=== PATIENT | female | born 1935 | race Caucasian/White ===

== ENCOUNTER 2019-09-22 10:53 | Inpatient (IN) ==
[2019-09-22] MEDS ORDERED: 0.9 % SODIUM CHLORIDE 500 ML IV ONE ×2 (11:36→13:29)
--- NOTE | 2019-09-22 11:40 | Emergency Department Note ---
General Adult HPI - General Chief complaint: Recheck/Abnormal Lab/Rx Stated complaint: here for chest x-ray Time Seen by Provider: 09/22/19 10:59 Source: patient Mode of arrival: wheelchair Limitations: no limitations - History of Present Illness HPI Narrative: 84-year-old female patient referred back to the emergency department by her primary care provider requesting additional work-up. Patient was recently seen in our emergency department on 09/19 by a colleague. During that time she was being worked up for some form of fever of unknown origin. A review that note indicates that the patient had a fever and URI symptoms for the preceding 4 days. Her temperature was getting as high as 101. Her work-up showed a normal CBC and rather unremarkable CMP. Her lactic acid was 2.3. Her inflammatory markers were elevated, ESR 68 and CRP 10.5. Nasal swab for influenza was negative. Procalcitonin was 0.11. She had no considerable evidence of infe ction in her urine. She underwent a CT scan of her sinuses that did not show any considerable sinusitis. Today, patient returns accompanied by her and daughter with a chief complaint of ongoing fevers. Patient's says that the fever was high as 102 earlier this morning. He gave her several doses of acetaminophen and this is calm down. Patient relays a history of being seen up in [facility] 1 week ago. She is being evaluated and worked up for atrial fibrillation. During that time she had a transesophageal echocardiogram. Soon afterward, she developed a cough. She and her both continue to relay history of fever, sweats, chills. She denies runny nose digestion. She denies sputum production. She denies being short of breath. However, her relays some mild dyspnea over the last 2 days. She denies any retrosternal chest pain or palpitations. She admits to abdominal discomfort. Her relays she had several Lovenox injections in order to get her INR therapeutic prior to undergoing atrial fibrillation cardioversion. She is currently anticoagulated on Coumadin 2.5 mg daily. Her most recent INR was 4.6 on Tuesday (09/18). She denies nausea, vomiting, diarrhea, or constipation. She denies having a recent bowel movement. However her mentions she had a normal bowel 2 days ago. A review of her active problem list does show a history of mitral valve replacement, palpitations, atrial fibrillation, and fever. - Related Data Allergies Allergy/AdvReac Type Severity Reaction Status Date / Time Sulfa (Sulfonamide Allergy Mild Hives Verified 09/20/19 12:19 Antibiotics) Review of Systems All systems ED: reviewed and negative except as stated. Past Medical History - Past Medical History Medical history: Reports: atrial fibrillation Surgical history ED: Reports: non-contributory - Social History smoking status: Never smoker Alcohol use: Reports: None Drug use: Reports: none Physical Exam Limitations: no limitations General appearance: alert, in no apparent distress, sleepy, other (Well- developed, frail-appearing, 84-year-old female patient laying semi-recumbent on the emergency room gurney in no acute respiratory distress.) Head: atraumatic, normocephalic Eye: Present: normal appearance, PERRL, EOMI. Absent: scleral icterus, conjunctival injection ENT: Present: normal oropharynx, mucous membranes moist, TM's normal bilaterally. Absent: nasal congestion Neck: Present: full ROM, trachea midline. Absent: tenderness, lymphadenopathy Chest: Present: normal inspection, symmetric chest wall rise Respiratory: Present: rales/crackles (Very faint crackles heard to the bases bilateral.), decreased breath sounds (Decreased breath sounds to the bases.). Absent: respiratory distress, wheezes, stridor, accessory muscle use, prolonged expiratory phase Cardiovascular: Present: regular rate, normal rhythm. Absent: systolic murmur, diastolic murmur Abdominal: Present: soft, tenderness (Mild tenderness palpation to the right lower quadrant adjacent to a small hematoma that developed after the Lovenox injections. No considerable tenderness to deep palpitation throughout the abdomen.), normal bowel sounds. Absent: distention, guarding, rebound, rigidity, organomegaly, mass Extremities: Present: normal inspection, full ROM, normal capillary refill Back: Present: normal inspection, full ROM. Absent: CVA tenderness (R), CVA tenderness (L) Neurological: Present: alert, oriented X3. Absent: motor sensory deficit Psychiatric: Present: normal affect, normal mood Skin: Present: warm, dry, pallor Course Course Narrative: Patient was brought into the emergency department and a history of physical exam was performed. At this time she continues to have a fever of unknown origin so we are going to reconfirm her work-up but with saline lock placement and repeat laboratory studies. Repeat nasal swab for influenza a/B was ordered and reviewed A portable chest x-ray was ordered and reviewed. Although the patient is complaining of some mild abdominal pain this seems to be localized around the hematoma secondary to Lovenox injections. However, if additional work-up is unremarkable we may elect to do an abdominal CT scan looking for a cause of her fever in the future. Patient was given normal saline 500 mL bolus. Upon reevaluation patient is resting in emergency room [facility]. Influenza swab came back positive for both influenza a/B. A review of her laboratory studies show the following: CBC WBC 14.7, RBC 4.16, hemoglobin 12.5, crit 38.0, platelets 340. CMP glucose 184, AST 45, globulin 3.8, all others normal limits. Lactic acid 2.9. Lipase 14. Procalcitonin 0.73. ESR 60. CRP 20.8. PT 35.2. INR 3.4. Portable chest x-ray showed moderately severe alveolar infiltrates th roughout both lungs. Radiologist mentioned this could be pneumonia, fluid overload, or noninfectious inflammatory process. After reviewing all the data I discussed these findings with the patient and her family members. At this time she is suffering from influenza A and B and that is likely the cause of her symptoms today. She has an blood cell count and inflammatory markers. Chest x-ray showing developing pneumonia. With all this in mind, it is my recommendation the patient be admitted to the hospital for further evaluation and management. Patient was given dose of Tamiflu 75 mg while in the emergency department. I reached out to our hospitalist (Dr. Jimenez) about the patient and her condition. At this time the hospitalist has concurred about the patient's need for admission. Dr. Jimenez is going to admit her to our facility. All further treatment decisions, modalities, and ultimate patient disposition be carried out by Dr. Jimenez. Vital Signs Temperature 97.7 F 09/22/19 10:54 Pulse Rate 85 09/22/19 10:54 Respiratory Rate 20 09/22/19 10:54 Blood Pressure 145/72 09/22/19 10:54 Pulse Oximetry (%) 97 09/22/19 10:54 Temperature 101.6 F H 09/22/19 13:40 Pulse Rate 81 09/22/19 12:39 Respiratory Rate 20 09/22/19 10:54 Blood Pressure 135/54 09/22/19 12:31 Pulse Oximetry (%) 93 09/22/19 12:39 Medical Decision Making - Lab Data Lab results reviewed: Yes I reviewed the patient's lab results. Result diagrams: 09/22/19 11:43 09/22/19 11:43 Lab Results 09/22/19 09/22/19 09/22/19 Range/Units 11:43 11:43 11:43 WBC 14.7 H (4.50-11.00) K/mcL RBC 4.16 (3.59-5.38) M/mcL Hgb 12.5 (11.2-15.7) g/dL Hct 38.0 (34.1-44.9) % POC Hct 38.0 (36.0-48.0) % MCV 91.3 (80.0-100.0) fL MCH 30.0 (26.0-34.0) pg MCHC 32.9 (31.0-36.0) g/dL RDW 14.1 (11.5-14.5) % Plt Count 340 (140-440) K/mcL MPV 10.3 (7.4-10.4) fL Gran % 78.9 H (38.0-78.0) % Lymph % (Auto) 9.1 L (15.5-49.0) % Aiken % (Auto) 8.8 (1.0-12.0) % Eos % (Auto) 2.2 (0.0-7.0) % Baso % (Auto) 1.0 (0.0-2.0) % Gran # 11.61 H (1.80-8.00) K/mcL Lymph # (Auto) 1.34 L (1.50-4.80) K/mcL Aiken # (Auto) 1.30 H (0.10-0.90) K/mcL Eos # (Auto) 0.32 (0.00-0.70) K/mcL Baso # (Auto) 0.15 (0.00-0.30) K/mcL ESR 60 H (0-20) mm/hr PT (11.9-14.5) sec INR (0.9-1.1) VBG Lactic Acid 2.9 H (0.5-2.0) mmol/L POC Sodium 137 (133-145) mmol/L Sodium 136 (133-145) mmol/L POC Potassium 3.6 (3.3-5.1) mmol/L Potassium 3.8 (3.3-5.1) mmol/L POC Chloride 101 (96-108) mmol/L Chloride 98 (96-108) mmol/L Carbon Dioxide 25 (22-30) mmol/L POC Total CO2 27 (22-30) mmol/L Anion Gap 13.0 (8-16) POC BUN 14 (8-23) mg/dl BUN 13 (8-23) mg/dl Creatinine 1.0 (0.6-1.1) mg/dl POC Creatinine 0.9 (0.6-1.1) mg/dl GFR Calculation 51 Glucose 184 H (70-105) mg/dL POC Glucose 181 H (70-105) mg/dL Calcium 9.4 (8.6-10.4) mg/dl POC WB Ioniz Calcium 1.20 (1.16-1.32) mmol/L Total Bilirubin 0.8 (0.0-1.0) mg/dL AST 45 H (0-37) U/l ALT 28 (0-40) U/l Alkaline Phosphatase 113 (39-117) U/L C-Reactive Protein 20.8 H (0.0-0.8) mg/dl Total Protein 7.2 (5.9-8.4) gm/dL Albumin 3.4 (3.2-5.2) gm/dL Globulin 3.8 H (2.2-3.7) gm/dL Albumin/Globulin Ratio 0.9 L (1.0-2.3) Lipase 14 (7-60) U/L Procalcitonin (<0.10) ng/mL 09/22/19 09/22/19 Range/Units 11:43 11:43 WBC (4.50-11.00) K/mcL RBC (3.59-5.38) M/mcL Hgb (11.2-15.7) g/dL Hct (34.1-44.9) % POC Hct (36.0-48.0) % MCV (80.0-100.0) fL MCH (26.0-34.0) pg MCHC (31.0-36.0) g/dL RDW (11.5-14.5) % Plt Count (140-440) K/mcL MPV (7.4-10.4) fL Gran % (38.0-78.0) % Lymph % (Auto) (15.5-49.0) % Aiken % (Auto) (1.0-12.0) % Eos % (Auto) (0.0-7.0) % Baso % (Auto) (0.0-2.0) % Gran # (1.80-8.00) K/mcL Lymph # (Auto) (1.50-4.80) K/mcL Aiken # (Auto) (0.10-0.90) K/mcL Eos # (Auto) (0.00-0.70) K/mcL Baso # (Auto) (0.00-0.30) K/mcL ESR (0-20) mm/hr PT 35.2 H (11.9-14.5) sec INR 3.4 H (0.9-1.1) VBG Lactic Acid (0.5-2.0) mmol/L POC Sodium (133-145) mmol/L Sodium (133-145) mmol/L POC Potassium (3.3-5.1) mmol/L Potassium (3.3-5.1) mmol/L POC Chloride (96-108) mmol/L Chloride (96-108) mmol/L Carbon Dioxide (22-30) mmol/L POC Total CO2 (22-30) mmol/L Anion Gap (8-16) POC BUN (8-23) mg/dl BUN (8-23) mg/dl Creatinine (0.6-1.1) mg/dl POC Creatinine (0.6-1.1) mg/dl GFR Calculation Glucose (70-105) mg/dL POC Glucose (70-105) mg/dL Calcium (8.6-10.4) mg/dl POC WB Ioniz Calcium (1.16-1.32) mmol/L Total Bilirubin (0.0-1.0) mg/dL AST (0-37) U/l ALT (0-40) U/l Alkaline Phosphatase (39-117) U/L C-Reactive Protein (0.0-0.8) mg/dl Total Protein (5.9-8.4) gm/dL Albumin (3.2-5.2) gm/dL Globulin (2.2-3.7) gm/dL Albumin/Globulin Ratio (1.0-2.3) Lipase (7-60) U/L Procalcitonin 0.73 (<0.10) ng/mL - Radiology Data Radiology results reviewed: Yes I reviewed the patient's radiology results. Ordering Physician: Rashard Alford PA-C Date of Service: 09/22/19 Procedure(s): XR chest 1V portable Accession Number(s): [id number] HISTORY: Cough, fever of unknown origin FINDINGS: There are moderately severe diffuse alveolar opacities throughout both lungs. Lung volumes are normal and there is no lobar consolidation or pleural effusion. The heart size is upper limits of normal. Pulmonary vessels cannot be evaluated. Comparison with the prior exam from 09/14/19 shows dramatic worsening of the infiltrates in both lungs and no change in the heart size. IMPRESSION: Moderately severe alveolar infiltrates throughout both lungs. This could be due to pneumonia, fluid overload or noninfectious inflammatory process. Interpreted and Authenticated by: Jordi Ortiz 09/22/19 - EKG Data EKG #1 EKG attestation: Yes I reviewed and interpreted this EKG., Yes There are no EKG findings of acute coronary syndrome Disposition Pt seen by TAILOR [employer]MENT [facility]TER/PA only: Yes Clinical Impression: Influenza Pneumonia Qualifiers: Pneumonia type: due to unspecified organism Laterality: bilateral Lung location: unspecified part of lung Qualified Code(s): J18.9 - Pneumonia, unspecified organism Disposition: Xfer As Inpt ([facility]) Condition: Fair Additional Instructions: Patient is being admitted to the facility under the care of the hospitalist (Dr. Jimenez). All further treatment decisions, modalities, and ultimate patient disposition be carried out by the hospitalist. Referrals: Rashard Abdi MD [Primary Care Provider] -
[2019-09-22 12:04] LABS: POC Blood Urea Nitrogen 14 mg/dl (8-23); POC CO2 27 mmol/L (22-30); POC Chloride 101 mmol/L (96-108); POC Creatinine 0.9 mg/dl (0.6-1.1); POC Glucose, Random 181 mg/dL (70-105); POC Potassium 3.6 mmol/L (3.3-5.1); POC Sodium 137 mmol/L (133-145)
[2019-09-22 12:58] LABS: ALT/SGPT 28 U/l (0-40); AST/SGOT 45 U/l (0-37); Albumin 3.4 gm/dL (3.2-5.2); Albumin/Globulin Ratio 0.9 (1.0-2.3); Alkaline Phosphatase 113 U/L (39-117); Basophils # (Auto) 0.15 K/mcL (0.00-0.30); Bilirubin,Total 0.8 mg/dL (0.0-1.0); Blood Urea Nitrogen 13 mg/dl (8-23); C-Reactive Protein 20.8 mg/dl (0.0-0.8); Calcium 9.4 mg/dl (8.6-10.4); Carbon Dioxide 25 mmol/L (22-30); Chloride 98 mmol/L (96-108); Eosinophils # (Auto) 0.32 K/mcL (0.00-0.70); Eosinophils % (Auto) 2.2 % (0.0-7.0); Globulin 3.8 gm/dL (2.2-3.7); Glomerular Filtration Rate 51; Glucose 184 mg/dL (70-105); Granulocytes % (Auto) 78.9 % (38.0-78.0); Hemoglobin 12.5 g/dL (11.2-15.7); INR 3.4 (0.9-1.1); Lymphocytes # (Auto) 1.34 K/mcL (1.50-4.80); Lymphocytes % (Auto) 9.1 % (15.5-49.0); Mean Cell Volume 91.3 fL (80.0-100.0); Mean Corpuscular HGB Conc 32.9 g/dL (31.0-36.0); Mean Platelet Volume 10.3 fL (7.4-10.4); Monocytes % (Auto) 8.8 % (1.0-12.0); Platelet Count 340 K/mcL (140-440); Prothrombin Time 35.2 sec (11.9-14.5); RBC 4.16 M/mcL (3.59-5.38); Red Cell Distribution Width 14.1 % (11.5-14.5); WBC 14.7 K/mcL (4.50-11.00)
[2019-09-22] MEDS ORDERED: ACETAMINOPHEN 325 MG TABLET PO ONE (13:28)
[2019-09-22] MEDS ORDERED: OSELTAMIVIR PHOSPHATE 75 MG CAPSULE PO ONE (13:28)
[2019-09-22 13:32] LABS: Erythrocyte Sedimentation Rate 60 mm/hr (0-20)
--- NOTE | 2019-09-22 14:18 | XRay Report ---
HISTORY: Cough, fever of unknown origin FINDINGS: There are moderately severe diffuse alveolar opacities throughout both lungs. Lung volumes are normal and there is no lobar consolidation or pleural effusion. The heart size is upper limits of normal. Pulmonary vessels cannot be evaluated. Comparison with the prior exam from 09/14/19 shows dramatic worsening of the infiltrates in both lungs and no change in the heart size. IMPRESSION: Moderately severe alveolar infiltrates throughout both lungs. This could be due to pneumonia, fluid overload or noninfectious inflammatory process. Interpreted and Authenticated by: Jordi Ortiz 09/22/19
[2019-09-22] MEDS ORDERED: ONDANSETRON 4 MG/2 ML VIAL IV PRN ×2 (15:00→17:14)
[2019-09-22] MEDS ORDERED: 0.9 % SODIUM CHLORIDE 1,000 ML IV SCH (15:00)
[2019-09-22] MEDS ORDERED: IPRATROPIUM/ALBUTEROL 3 ML AMPUL.NEB NEB SCH (15:00)
[2019-09-22] MEDS ORDERED: ACETAMINOPHEN 325 MG TABLET PO PRN (15:00)
--- NOTE | 2019-09-22 15:25 | Internal Med History&Physical ---
Medical - H&P: HPI Patient information: Note initiated : 09/22/19 at 3:20 pm Service Date, if different from initiated Date: [] Patient: Ameena Ignacio 84 y/o F admitted on for here for chest x-ray. Chief Complaint: [Do not feel well for 2 days] History of present illness: Ms. Ignacio is a 84 year old F with a history of atrial fibrillation who presented to the ER because she has been having mild fever for days do not feel well for 2 days. As per patient, she has been having fever for days for which she went to the ER from medical staff assistant. She was discharged home with medications. She came back again because she does not feel well for 2 days. In the ER, she was found to have will mild fever and a positive positive influenza a and B. When I saw this patient in the ER, other than symptoms mentioned above, she also complains of malaise, fever and chills. Denied headache, dizziness, chest pain, shortness of breath, abdominal pain, nausea, vomiting, or diarrhea. No recent travel or sick contact. - Constitutional Constitutional: Present: as per HPI, chills, fatigue, fever(s), malaise - EENT Eyes: Present: as per HPI Ears: Present: as per HPI Nose, mouth and throat: Present: as per HPI - Cardiovascular Cardiovascular: Present: as per HPI. Absent: chest pain - Respiratory Respiratory: Absent: wheezing - Gastrointestinal Gastrointestinal: Absent: diarrhea, nausea, vomiting - Musculoskeletal Musculoskeletal: Present: as per HPI - Integumentary Integumentary: Present: as per HPI - Neurological Neurological: Present: as per HPI - Psychiatric Psychiatric: Present: as per HPI - Endocrine Endocrine: Present: as per HPI - Hematologic/Lymphatic Hematologic/Lymphatic: Present: as per HPI - Allergic/Immunologic Allergic/Immunologic: Present: as per HPI Medical - H&P: PMH Problems Reviewed: Yes Medical history: Atrial fibrillation Family history: reviewed and not pertinent (Mother had esophageal cancer) Smoking status: Never smoker Drug use: none Alcohol use: none Medical - H&P: Meds Allergies Allergy/AdvReac Type Severity Reaction Status Date / Time Sulfa (Sulfonamide Allergy Mild Hives Verified 09/20/19 12:19 Antibiotics) Medical - H&P: Exam - Constitutional Vitals: Temp Pulse Resp BP Pulse Ox 98.5 F 86 20 143/55 91 09/22/19 15:05 09/22/19 14:31 09/22/19 10:54 09/22/19 14:31 09/22/19 14:31 General appearance: cooperative, mild distress - Head Head exam: Present: atraumatic, normal inspection, normocephalic - Eye Eye exam: Present: EOMI, PERRL - ENT ENT exam: Present: mucous membranes moist - Neck Neck exam: Present: full ROM, normal inspection - Respiratory Respiratory exam: Present: normal respiratory exam, CTAB - Cardiovascular Cardiovascular exam: Present: irregular rhythm - GI/Abdominal GI/Abdominal exam: Present: normal bowel sounds, soft. Absent: tenderness - Extremities Exam Extremities exam: Present: full ROM, normal capillary refill, normal inspection - Neurological Exam Neurological exam: Present: alert, CN II-XII intact, oriented X3 - Psychiatric Psychiatric exam: Present: normal affect, normal mood - Skin Skin exam: Present: intact Medical - H&P: Reslt - Labs CBC & Chem 7: 09/22/19 11:43 09/22/19 11:43 Labs: Short CBC 09/22/19 Range/Units 11:43 WBC 14.7 H (4.50-11.00) K/mcL Hgb 12.5 (11.2-15.7) g/dL Hct 38.0 (34.1-44.9) % Plt Count 340 (140-440) K/mcL BMP 09/22/19 11:43 Sodium 136 Potassium 3.8 Chloride 98 Carbon Dioxide 25 BUN 13 Creatinine 1.0 Glucose 184 H Calcium 9.4 Liver Function 09/22/19 Range/Units 11:43 Total Bilirubin 0.8 (0.0-1.0) mg/dL AST 45 H (0-37) U/l ALT 28 (0-40) U/l Alkaline Phosphatase 113 (39-117) U/L Albumin 3.4 (3.2-5.2) gm/dL Medical - H&P: A/P - Narrative A/P Narrative: Assessment: 1. Positive influenza 2. Chronic atrial fibrillation 3. s/p mitral valve replacement with 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 4. [facility] use of anticoagulant 5. Leukocytosis Plan: 1. Observed in the hospital because I feel patient should stay in the hospital less than 2 midnights 2. Positive influenza a and B. Tamiflu 75 mg twice daily for 5 days Chest x-ray showed Moderately severe alveolar infiltrates throughout both lungs. This could be due to pneumonia, fluid overload or noninfectious inflammatory process. Procalcitonin 0.75. I do not feel patient has evidence of pneumonia. I would like to just watch. No antibiotics at this moment 3. Patient had atrial fibrillation and status post mitral valve replacement LV the 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 (INR 2.5-3.5). Continue Coumadin dosing by pharmacy. 4. Leukocytosis could be due to acute distress 5. DVT prophylaxis: Patient is on warfarin 6. CODE STATUS: Full
--- NOTE | 2019-09-22 15:40 | Internal Med Progress Note ---
Medical - PN: Subj Patient information: Note initiated : 09/22/19 at 3:36 pm Advanced Care Planning Documents: Decisional Capacity: Yes POLST form completed: not yet I explained the the process regarding CPR, defibrillation, shock, intubation and medication treatment were all discussed and explained in detail to the patient. We also discussed potential risks/benefits, including limitations of the procedure. Code status: I educated pt on the reality of CPR, how television makes it appear that we are usually successful, and people wake up right away, and can often leave the hospital shortly after. I explained that for young people, and those with few medical problems will do better, those with chronic medical problems or severe illnesses are less likely to survive. If they do survive, they may end up on life support, and possibly have physical and mental deficits. They are usually more dependent on other for their care needs after surviving a code, and would typically require a stay in a rehab facility, and are not usually discharged home from the hospital Patient agreed that we the CPR, resuscitation and intubation. - Constitutional Vitals: Vital Signs Temp Pulse Resp BP Pulse Ox 98.5 F 86 20 143/55 91 09/22/19 15:05 09/22/19 14:31 09/22/19 10:54 09/22/19 14:31 09/22/19 14:31 Period Temp Pulse Resp BP Sys/Rogers Pulse Ox Last 24 Hr 97.7 F-101.6 F 79-86 20 99-149/46-112 91-97 Intake and Output 09/22/19 09/22/19 09/22/19 05:59 13:59 21:59 Intake Total 500 Balance 500 Weight 58.967 kg Patient Weight 09/23/19 06:59 Weight 58.967 kg Intake & Output: Intake & Output 09/22/19 09/22/19 09/22/19 05:59 13:59 21:59 Intake Total 500 Balance 500 Weight 58.967 kg Intake: IV 500 Sodium Chloride 0.9% 500 ml @ 500 Wide Open IV BOLUS ONE Rx#: [id number] Medical - PN: Obj Da - Labs CBC & Chem 7: 09/22/19 11:43 09/22/19 11:43 Labs: Abnormal Lab Results 09/22/19 09/22/19 09/22/19 11:43 11:43 11:43 WBC Gran % Lymph % (Auto) Gran # Lymph # (Auto) Alger # (Auto) ESR PT 35.2 H INR 3.4 H VBG Lactic Acid 2.9 H Glucose 184 H POC Glucose 181 H AST 45 H C-Reactive Protein 20.8 H Globulin 3.8 H Albumin/Globulin Ratio 0.9 L 09/22/19 11:43 WBC 14.7 H Gran % 78.9 H Lymph % (Auto) 9.1 L Gran # 11.61 H Lymph # (Auto) 1.34 L Alger # (Auto) 1.30 H ESR 60 H PT INR VBG Lactic Acid Glucose POC Glucose AST C-Reactive Protein Globulin Albumin/Globulin Ratio Meds: Medications Acetaminophen (Tylenol) 650 mg PO Q6HP PRN; Protocol PRN Reason: Per Pain Protocol/Fever > 101 Albuterol/Ipratropium (Duoneb) 3 ml NEB Q4HRT [facility] Docusate Sodium (Colace) 100 mg PO BID [facility] Sodium Chloride (Sodium Chloride 0.9%) 1,000 mls @ 75 mls/hr IV .[id number] [facility] Ondansetron HCl (Zofran) 2 mg IV Q6HP PRN PRN Reason: Nausea And Vomiting Oseltamivir Phosphate (Tamiflu) 75 mg PO BID [facility] Stop: 09/27/19 20:59 Senna (Senokot) 2 tab PO HS [facility] Sodium Chloride (Saline Flush) 10 ml IV Q8 [facility] Warfarin Sodium (Coumadin Per Pharmacy) 1 order PO DAILY@1400 [facility] Medical - PN: A/P - Time Spent With Patient Total time spent is greater than 50% in coordination of care (as documented) at patient's floor/unit and/or counseling patient:
[2019-09-22] MEDS ORDERED: IBUPROFEN 200 MG TABLET PO ONE (16:25)
[2019-09-22] MEDS ORDERED: IPRATROPIUM/ALBUTEROL 3 ML AMPUL.NEB NEB ONE (18:50)
[2019-09-22] MEDS: IPRATROPIUM/ALBUTEROL 3 ML AMPUL.NEB NEB SCH ×2 (18:54→23:07)
[2019-09-22] MEDS: 0.9 % SODIUM CHLORIDE 1,000 ML IV SCH (19:20)
[2019-09-22] MEDS: ALPRAZolam 0.5 MG TABLET PO SCH (20:34)
[2019-09-22] MEDS: LATANOPROST OPHTH DROPS 2.5ML BOTTLE OU SCH (20:34)
[2019-09-22] MEDS: LISINOPRIL 5 MG TABLET PO SCH (20:34)
[2019-09-22] MEDS: OSELTAMIVIR PHOSPHATE 75 MG CAPSULE PO SCH (20:34)
[2019-09-22] MEDS: DOCUSATE SODIUM 100 MG CAPSULE PO SCH (20:34)
[2019-09-22] MEDS: SENNOSIDES 1 TABLET PO SCH (20:34)
[2019-09-22] MEDS: 0.9 % SODIUM CHLORIDE 10 ML SYRINGE IV SCH (20:35)
[2019-09-22] MEDS: FUROSEMIDE 20 MG/2 ML VIAL IV SCH (20:43)
[2019-09-22] MEDS ORDERED: DOCUSATE SODIUM 100 MG CAPSULE PO SCH (21:00)
[2019-09-22] MEDS ORDERED: SENNOSIDES 1 TABLET PO SCH (21:00)
[2019-09-22] MEDS ORDERED: OSELTAMIVIR PHOSPHATE 75 MG CAPSULE PO SCH (21:00)
[2019-09-22] MEDS ORDERED: 0.9 % SODIUM CHLORIDE 10 ML SYRINGE IV SCH (22:00)
[2019-09-23] MEDS: FUROSEMIDE 20 MG/2 ML VIAL IV SCH (00:29)
[2019-09-23 03:15] LABS: Appearance,Urine CLEAR; Bacteria,Urine 0 /hpf (0); Bilirubin,Urine NEG (NEG); Color,Urine YELLOW; Culture Indicated,Urine NO; Glucose,Urine (UA) NEGATIVE (NEG); Ketones,Urine NEG (NEG); Leukocyte Esterase,Urine NEG /uL (NEG); Mucus,Urine FEW /hpf (0); Nitrate,Urine NEG (NEG); Protein,Urine NEG (NEG); Specific Gravity,Urine 1.011 (1.000-1.035); Urine Blood NEG mg/dL (<0.03); Urine RBC 1 /hpf (0-1); Urine Squamous Epithelial Cell 1 /hpf (0-4); Urine WBC 1 /hpf (0-4); Urobilinogen,Urine NEG (NEG)
[2019-09-23] MEDS: IPRATROPIUM/ALBUTEROL 3 ML AMPUL.NEB NEB SCH ×7 (05:50→23:39)
[2019-09-23] MEDS: 0.9 % SODIUM CHLORIDE 10 ML SYRINGE IV SCH ×3 (05:51→20:30)
[2019-09-23 06:16] LABS: Basophils % (Auto) 0.8 % (0.0-2.0); Eosinophils # (Auto) 1.13 K/mcL (0.00-0.70); Eosinophils % (Auto) 9.1 % (0.0-7.0); Granulocytes % (Auto) 68.9 % (38.0-78.0); Hematocrit 33.3 % (34.1-44.9); Hemoglobin 10.6 g/dL (11.2-15.7); Lymphocytes # (Auto) 1.45 K/mcL (1.50-4.80); Lymphocytes % (Auto) 11.6 % (15.5-49.0); Mean Cell Volume 93.5 fL (80.0-100.0); Mean Corpuscular HGB Conc 31.8 g/dL (31.0-36.0); Mean Platelet Volume 9.7 fL (7.4-10.4); Monocytes # (Auto) 1.19 K/mcL (0.10-0.90); Monocytes % (Auto) 9.6 % (1.0-12.0); Platelet Count 285 K/mcL (140-440); RBC 3.56 M/mcL (3.59-5.38); Red Cell Distribution Width 14.3 % (11.5-14.5); WBC 12.5 K/mcL (4.50-11.00)
[2019-09-23 06:40] LABS: ALT/SGPT 25 U/l (0-40); AST/SGOT 35 U/l (0-37); Albumin 2.8 gm/dL (3.2-5.2); Albumin/Globulin Ratio 0.9 (1.0-2.3); Alkaline Phosphatase 100 U/L (39-117); Bilirubin,Total 0.5 mg/dL (0.0-1.0); Blood Urea Nitrogen 15 mg/dl (8-23); Calcium 8.4 mg/dl (8.6-10.4); Carbon Dioxide 26 mmol/L (22-30); Chloride 104 mmol/L (96-108); Globulin 3.2 gm/dL (2.2-3.7); Glomerular Filtration Rate 58; Glucose 106 mg/dL (70-105)
[2019-09-23 07:13] LABS: INR 3.8 (0.9-1.1); Prothrombin Time 38.2 sec (11.9-14.5)
[2019-09-23] MEDS ORDERED: WARFARIN 5 MG TABLET PO SCH (09:00)
[2019-09-23] MEDS ORDERED: DOCUSATE SODIUM 100 MG CAPSULE PO SCH (09:00)
[2019-09-23] MEDS: ACETAMINOPHEN 325 MG TABLET PO PRN ×2 (09:46→18:11)
[2019-09-23] MEDS: CALCIUM CARBONATE 500 MG TAB.CHEW PO SCH (09:46)
[2019-09-23] MEDS: ATORVASTATIN 20 MG TABLET PO SCH (09:46)
[2019-09-23] MEDS: POTASSIUM CHLORIDE 10 MEQ TABLET PO SCH (09:46)
[2019-09-23] MEDS: VITAMIN D3 5,000 UNIT CAPSULE PO SCH (09:46)
[2019-09-23] MEDS: BUTALB/ACETAMINOPHEN/CAFFEINE 1 TABLET PO SCH (09:47)
[2019-09-23] MEDS: OMEPRAZOLE 20 MG CAPSULE PO SCH (09:47)
[2019-09-23] MEDS: OSELTAMIVIR PHOSPHATE 75 MG CAPSULE PO SCH ×2 (09:47→20:29)
[2019-09-23] MEDS: TIMOLOL 0.5% OPHTH DROPS BOTTLE 5ML OU SCH (09:48)
[2019-09-23] MEDS: DOCUSATE SODIUM 100 MG CAPSULE PO SCH ×2 (09:48→20:29)
[2019-09-23] MEDS: LEVOTHYROXINE 88 MCG TABLET PO SCH (09:49)
[2019-09-23] MEDS: 0.9 % SODIUM CHLORIDE 1,000 ML IV SCH ×2 (12:36→23:41)
--- NOTE | 2019-09-23 15:22 | Internal Med Progress Note ---
Medical - PN: Subj Patient information: Note initiated : 09/23/19 at 3:15 pm Service Date, if different from initiated Date: [] Patient: Ameena Ignacio 84 y/o F admitted on 09/22/19 for here for chest x- ray. Chief Complaint: [] 3 Pt feels better. has mild sob. Denies fever/chills, headache, runny nose, or chest pain. ROS Constitutional: Present: DAD, no weight loss Nose, mouth and throat: no hemoptysis Cardiovascular: no chest pain Respiratory: mild sob. Gastrointestinal: no abdominal pain, diarrhea, nausea, or vomiting Musculoskeletal: no arthralgias Neurological: no headache or dizziness Psychiatric: normal mood - Constitutional Vitals: Vital Signs Temp Pulse Resp BP Pulse Ox 98.9 F 91 H 15 114/60 94 09/23/19 11:22 09/23/19 15:10 09/23/19 15:10 09/23/19 11:22 09/23/19 11:22 Period Temp Pulse Resp BP Sys/Rogers Pulse Ox Last 24 Hr 97.4 F-99.9 F 71-97 14-95 90-143/46-72 90-99 Intake and Output 09/23/19 09/23/19 09/23/19 05:59 13:59 21:59 Intake Total 1000 Output Total 700 Balance 300 Weight Intake & Output: Intake & Output 09/23/19 09/23/19 09/23/19 05:59 13:59 21:59 Intake Total 1000 Output Total 700 Balance 300 Weight Intake: IV 1000 Sodium Chloride 0.9% 1,000 ml @ 1000 75 mls/hr IV .[id number] [facility] Rx#: [id number] Oral Output: Void Amount 700 Other: Urine Appearance Urine Color # Bowel Movements 1 - Additional findings Additional findings: General appearance: cooperative, no acute distress Head exam: atraumatic, normal inspection, normocephalic Eye exam: EOMI, PERRL Sclera: bilateral: normal inspection ENT exam: mucous membranes moist Neck exam: full ROM Neck exam: no tenderness Respiratory exam: mild rhonchi Cardiovascular exam: normal rate and rhythm, +S1, +S2 GI/Abdominal exam: normal bowel sounds, soft, tenderness (very mild tenderness over epigastric area) Extremities exam: no joint swelling, or tenderness Neurological exam: alert, CN II-XII intact, oriented X3, reflexes normal Psychiatric exam: flat affect, normal mood Skin exam: intact Medical - PN: Obj Da - Labs CBC & Chem 7: 09/23/19 05:20 09/23/19 05:20 Labs: Abnormal Lab Results 09/23/19 09/23/19 09/23/19 05:20 05:20 05:20 WBC 12.5 H RBC 3.56 L Hgb 10.6 L Hct 33.3 L Gran % Lymph % (Auto) 11.6 L Eos % (Auto) 9.1 H Gran # 8.59 H Lymph # (Auto) 1.45 L Darke # (Auto) 1.19 H Eos # (Auto) 1.13 H ESR PT 38.2 H INR 3.8 H VBG Lactic Acid Glucose 106 H POC Glucose Calcium 8.4 L AST C-Reactive Protein NT-Pro-B Natriuret Pep 2210.0 H Albumin 2.8 L Globulin Albumin/Globulin Ratio 0.9 L 09/22/19 09/22/19 09/22/19 11:43 11:43 11:43 WBC RBC Hgb Hct Gran % Lymph % (Auto) Eos % (Auto) Gran # Lymph # (Auto) Darke # (Auto) Eos # (Auto) ESR PT 35.2 H INR 3.4 H VBG Lactic Acid 2.9 H Glucose 184 H POC Glucose 181 H Calcium AST 45 H C-Reactive Protein 20.8 H NT-Pro-B Natriuret Pep Albumin Globulin 3.8 H Albumin/Globulin Ratio 0.9 L 09/22/19 11:43 WBC 14.7 H RBC Hgb Hct Gran % 78.9 H Lymph % (Auto) 9.1 L Eos % (Auto) Gran # 11.61 H Lymph # (Auto) 1.34 L Darke # (Auto) 1.30 H Eos # (Auto) ESR 60 H PT INR VBG Lactic Acid Glucose POC Glucose Calcium AST C-Reactive Protein NT-Pro-B Natriuret Pep Albumin Globulin Albumin/Globulin Ratio Meds: Medications Acetaminophen (Tylenol) 650 mg PO Q6HP PRN; Protocol PRN Reason: Per Pain Protocol/Fever > 101 Last Admin: 09/23/19 09:46 Dose: 650 mg Documented by: Acetaminophen/Butalbital/Caffeine (Fioricet) 1 tab PO DAILY [facility] Last Admin: 09/23/19 09:47 Dose: 1 tab Documented by: Albuterol/Ipratropium (Duoneb) 3 ml NEB Q4HRT [facility] Last Admin: 09/23/19 15:09 Dose: 3 ml Documented by: Alprazolam (Xanax) 0.5 mg PO HS [facility] Last Admin: 09/22/19 20:34 Dose: Not Given Documented by: Atorvastatin Calcium (Lipitor) 20 mg PO DAILY [facility] Last Admin: 09/23/19 09:46 Dose: 20 mg Documented by: Calcium Carbonate/Glycine (Tums) 500 mg PO DAILY [facility] Last Admin: 09/23/19 09:46 Dose: 500 mg Documented by: Docusate Sodium (Colace) 100 mg PO BID [facility] Last Admin: 09/23/19 09:48 Dose: 100 mg Documented by: Sodium Chloride (Sodium Chloride 0.9%) 1,000 mls @ 75 mls/hr IV .[id number] [facility] Last Admin: 09/23/19 12:36 Dose: 75 mls/hr Documented by: Latanoprost (Xalatan Ophth Drops) 1 gtt OU [facility] Last Admin: 09/22/19 20:34 Dose: Not Given Documented by: Levothyroxine Sodium (Synthroid) 88 mcg PO [facility] Last Admin: 09/23/19 09:49 Dose: Not Given Documented by: Lisinopril (Zestril) 2.5 mg PO [facility] Last Admin: 09/22/19 20:34 Dose: Not Given Documented by: Omeprazole (Prilosec) 20 mg PO [facility] Last Admin: 09/23/19 09:47 Dose: 20 mg Documented by: Ondansetron HCl (Zofran) 2 mg IV Q6HP PRN PRN Reason: Nausea And Vomiting Oseltamivir Phosphate (Tamiflu) 75 mg PO BID [facility] Stop: 09/27/19 20:59 Last Admin: 09/23/19 09:47 Dose: 75 mg Documented by: Pneumococcal Polyvalent Vaccine (Pneumovax 23) 0.5 ml IM .ONCE ONE Stop: 09/24/19 10:01 [facility]) [facility] Last Admin: 09/23/19 09:46 Dose: 10 meq Documented by: Senna (Senokot) 2 tab PO HS [facility] Last Admin: 09/22/19 20:34 Dose: 2 tab Documented by: Sodium Chloride (Saline Flush) 10 ml IV Q8 [facility] Last Admin: 09/23/19 05:51 Dose: Not Given Documented by: Timolol Maleate (Timoptic 0.5% Ophth Drops) 1 gtt OU DAILY [facility] Last Admin: 09/23/19 09:48 Dose: Not Given Documented by: Vitamin D (Vitamin D3) 5,000 unit PO DAILY [facility] Last Admin: 09/23/19 09:46 Dose: 5,000 unit Documented by: Warfarin Sodium (Coumadin Per Pharmacy) 1 order PO UD [facility] Medical - PN: A/P - Time Spent With Patient Total time spent is greater than 50% in coordination of care (as documented) at patient's floor/unit and/or counseling patient: - Narrative A/P Narrative: Assessment: 1. Positive influenza 2. Chronic atrial fibrillation 3. s/p mitral valve replacement with 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 4. [facility] use of anticoagulant 5. Leukocytosis 6. Supratherapeutic INR Plan: 1. Positive influenza a and B. droplet isolation. Tamiflu 75 mg twice daily for 5 days Chest x-ray showed Moderately severe alveolar infiltrates throughout both lungs. This could be due to pneumonia, fluid overload or noninfectious inflammatory process. WBC went down to 12.5 Procalcitonin 0.75. I do not feel patient has evidence of pneumonia. I would like to just watch. No antibiotics at this moment Repeat procalcitonin 2. Patient had atrial fibrillation and status post mitral valve replacement LV the 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 (INR 2.5-3.5). INR 3.8 today. Held Coumadin today and reapeat INR in am (dosing by pharmacy). 3. Leukocytosis could be due to acute distress. Trending down 4. Held Coumadin today. Repeat INR in am 5. DVT prophylaxis: Patient is on warfarin 6. CODE STATUS: Full Deposition: Home carlie Family reported that pt was desaturated at home yesterday. Will watch her one more night. Repeat INR in am Medical - PN: Qual - VTE Deep Vein Thrombosis/Pulmonary Embolism Present on Admission: No
[2019-09-23] MEDS: SENNOSIDES 1 TABLET PO SCH (20:29)
[2019-09-23] MEDS: LATANOPROST OPHTH DROPS 2.5ML BOTTLE OU SCH (20:30)
[2019-09-23] MEDS: ALPRAZolam 0.5 MG TABLET PO SCH (20:30)
[2019-09-23] MEDS: LISINOPRIL 5 MG TABLET PO SCH (20:30)
[2019-09-24] MEDS: IPRATROPIUM/ALBUTEROL 3 ML AMPUL.NEB NEB SCH ×7 (05:05→23:18)
[2019-09-24] MEDS ORDERED: predniSONE 10 MG TABLET PO ONE (07:39)
[2019-09-24 07:53] LABS: Basophils # (Auto) 0.07 K/mcL (0.00-0.30); Basophils % (Auto) 0.8 % (0.0-2.0); Eosinophils # (Auto) 0.31 K/mcL (0.00-0.70); Eosinophils % (Auto) 3.6 % (0.0-7.0); Hematocrit 31.1 % (34.1-44.9); Hemoglobin 9.9 g/dL (11.2-15.7); Lymphocytes # (Auto) 1.39 K/mcL (1.50-4.80); Mean Cell Volume 92.6 fL (80.0-100.0); Mean Corpuscular HGB Conc 31.8 g/dL (31.0-36.0); Mean Platelet Volume 10.2 fL (7.4-10.4); Monocytes # (Auto) 0.92 K/mcL (0.10-0.90); Monocytes % (Auto) 10.6 % (1.0-12.0); Platelet Count 292 K/mcL (140-440); Prothrombin Time 31.9 sec (11.9-14.5); RBC 3.36 M/mcL (3.59-5.38); Red Cell Distribution Width 14.6 % (11.5-14.5); WBC 8.7 K/mcL (4.50-11.00)
[2019-09-24] MEDS: 0.9 % SODIUM CHLORIDE 10 ML SYRINGE IV SCH ×3 (07:58→20:23)
[2019-09-24] MEDS: LEVOTHYROXINE 88 MCG TABLET PO SCH (07:59)
[2019-09-24] MEDS: OMEPRAZOLE 20 MG CAPSULE PO SCH (07:59)
[2019-09-24] MEDS: ACETAMINOPHEN 325 MG TABLET PO PRN ×2 (07:59→19:36)
[2019-09-24 08:02] LABS: ALT/SGPT 22 U/l (0-40); AST/SGOT 34 U/l (0-37); Albumin 2.5 gm/dL (3.2-5.2); Albumin/Globulin Ratio 0.8 (1.0-2.3); Alkaline Phosphatase 94 U/L (39-117); Bilirubin,Total 0.4 mg/dL (0.0-1.0); Blood Urea Nitrogen 15 mg/dl (8-23); Calcium 8.1 mg/dl (8.6-10.4); Carbon Dioxide 22 mmol/L (22-30); Chloride 106 mmol/L (96-108); Globulin 3.1 gm/dL (2.2-3.7); Glomerular Filtration Rate 67; Glucose 118 mg/dL (70-105)
[2019-09-24] MEDS: CALCIUM CARBONATE 500 MG TAB.CHEW PO SCH (09:29)
[2019-09-24] MEDS: DOCUSATE SODIUM 100 MG CAPSULE PO SCH ×2 (09:30→20:22)
[2019-09-24] MEDS: BUTALB/ACETAMINOPHEN/CAFFEINE 1 TABLET PO SCH (09:30)
[2019-09-24] MEDS: ATORVASTATIN 20 MG TABLET PO SCH (09:30)
[2019-09-24] MEDS: VITAMIN D3 5,000 UNIT CAPSULE PO SCH (09:31)
[2019-09-24] MEDS: POTASSIUM CHLORIDE 10 MEQ TABLET PO SCH (09:31)
[2019-09-24] MEDS: OSELTAMIVIR PHOSPHATE 75 MG CAPSULE PO SCH ×2 (09:31→20:22)
[2019-09-24] MEDS: TIMOLOL 0.5% OPHTH DROPS BOTTLE 5ML OU SCH (09:36)
[2019-09-24] MEDS: cefTRIAXone 1 GM VIAL IV SCH (09:56)
[2019-09-24] MEDS ORDERED: PNEUMOCOCCAL 23-VAL P-SAC VAC 0.5 ML SYRINGE IM ONE (10:00)
[2019-09-24] MEDS: AZITHROMYCIN 500 MG in DEXTROSE 5% IN WATER 250 ML IV SCH (10:00)
--- NOTE | 2019-09-24 14:59 | Internal Med Progress Note ---
Medical - PN: Subj Patient information: Note initiated : 09/24/19 at 2:53 pm Service Date, if different from initiated Date: [] Patient: Ameena Ignacio 84 y/o F admitted on 09/22/19 for here for chest x- ray. Chief Complaint: [] Interval history: 09/22 Pt feels better. has mild sob. Denies fever/chills, headache, runny nose, or chest pain. 09/23 Pt feels fever and chills. She looks tired. temperature 99.3 this morning She is on 2 L White blood cells normalized today, 8.7 INR 3.0 Pre-calcitonin 0.58 - Constitutional Vitals: Vital Signs Temp Pulse Resp BP Pulse Ox 97.9 F 82 18 103/62 98 09/24/19 12:00 09/24/19 12:00 09/24/19 12:00 09/24/19 12:00 09/24/19 12:00 Period Temp Pulse Resp BP Sys/Rogers Pulse Ox Last 24 Hr 97.9 F-103.1 F 74-114 15-32 91-169/50-78 94-98 Intake and Output 09/24/19 09/24/19 09/24/19 05:59 13:59 21:59 Intake Total 1181 275 Output Total 500 Balance 681 275 Weight 64.319 kg Patient Weight 09/25/19 05:59 Weight 64.319 kg Intake & Output: Intake & Output 09/24/19 09/24/19 09/24/19 05:59 13:59 21:59 Intake Total 1181 275 Output Total 500 Balance 681 275 Weight 64.319 kg Intake: IV 831 250 Sodium Chloride 0.9% 1,000 ml @ 831 75 mls/hr IV .[id number] [facility] Rx#: [id number] Zithromax 500 mg In Dextrose 5% 250 in Water 250 ml @ 250 mls/hr IV Q24H [facility] Rx#:[id number] Oral 350 25 Output: Void Amount 500 Other: Meal Breakfast Percent of Meal Consumed 50% Feeding Ability Assist with Tray Set Up Urine Appearance Clear Urine Color Bright Yellow Stool Size Moderate Stool Color Brown Yellow Stool Consistency Loose # Voids 1 - Additional findings Additional findings: ROS Constitutional: DAD, no weight loss Nose, mouth and throat: no hemoptysis Cardiovascular: no chest pain Respiratory: mild sob. Gastrointestinal: no abdominal pain, diarrhea, nausea, or vomiting Musculoskeletal: no arthralgias Neurological: no headache or dizziness Psychiatric: normal mood Medical - PN: Obj Da - Labs CBC & Chem 7: 09/24/19 05:15 09/24/19 05:18 Labs: Abnormal Lab Results 09/24/19 09/24/19 09/24/19 05:18 05:15 05:15 WBC RBC 3.36 L Hgb 9.9 L Hct 31.1 L RDW 14.6 H Gran % Lymph % (Auto) Eos % (Auto) Gran # Lymph # (Auto) 1.39 L Wheeler # (Auto) 0.92 H Eos # (Auto) ESR PT 31.9 H INR 3.0 H VBG Lactic Acid Glucose 118 H POC Glucose Calcium 8.1 L AST C-Reactive Protein NT-Pro-B Natriuret Pep Total Protein 5.6 L Albumin 2.5 L Globulin Albumin/Globulin Ratio 0.8 L 09/23/19 09/23/19 09/23/19 05:20 05:20 05:20 WBC 12.5 H RBC 3.56 L Hgb 10.6 L Hct 33.3 L RDW Gran % Lymph % (Auto) 11.6 L Eos % (Auto) 9.1 H Gran # 8.59 H Lymph # (Auto) 1.45 L Wheeler # (Auto) 1.19 H Eos # (Auto) 1.13 H ESR PT 38.2 H INR 3.8 H VBG Lactic Acid Glucose 106 H POC Glucose Calcium 8.4 L AST C-Reactive Protein NT-Pro-B Natriuret Pep 2210.0 H Total Protein Albumin 2.8 L Globulin Albumin/Globulin Ratio 0.9 L 09/22/19 09/22/19 09/22/19 11:43 11:43 11:43 WBC RBC Hgb Hct RDW Gran % Lymph % (Auto) Eos % (Auto) Gran # Lymph # (Auto) Wheeler # (Auto) Eos # (Auto) ESR PT 35.2 H INR 3.4 H VBG Lactic Acid 2.9 H Glucose 184 H POC Glucose 181 H Calcium AST 45 H C-Reactive Protein 20.8 H NT-Pro-B Natriuret Pep Total Protein Albumin Globulin 3.8 H Albumin/Globulin Ratio 0.9 L 09/22/19 11:43 WBC 14.7 H RBC Hgb Hct RDW Gran % 78.9 H Lymph % (Auto) 9.1 L Eos % (Auto) Gran # 11.61 H Lymph # (Auto) 1.34 L Wheeler # (Auto) 1.30 H Eos # (Auto) ESR 60 H PT INR VBG Lactic Acid Glucose POC Glucose Calcium AST C-Reactive Protein NT-Pro-B Natriuret Pep Total Protein Albumin Globulin Albumin/Globulin Ratio Meds: Medications Acetaminophen (Tylenol) 650 mg PO Q6HP PRN; Protocol PRN Reason: Per Pain Protocol/Fever > 101 Last Admin: 09/24/19 07:59 Dose: 650 mg Documented by: Acetaminophen/Butalbital/Caffeine (Fioricet) 1 tab PO DAILY [facility] Last Admin: 09/24/19 09:30 Dose: 1 tab Documented by: Albuterol/Ipratropium (Duoneb) 3 ml NEB Q4HRT [facility] Last Admin: 09/24/19 11:04 Dose: Not Given Documented by: Alprazolam (Xanax) 0.5 mg PO HS [facility] Last Admin: 09/23/19 20:30 Dose: 0.5 mg Documented by: Atorvastatin Calcium (Lipitor) 20 mg PO DAILY [facility] Last Admin: 09/24/19 09:30 Dose: 20 mg Documented by: Calcium Carbonate/Glycine (Tums) 500 mg PO DAILY [facility] Last Admin: 09/24/19 09:29 Dose: 500 mg Documented by: Ceftriaxone Sodium (Rocephin) 1 gm IV Q24H [facility]; Protocol Last Admin: 09/24/19 09:56 Dose: 1 gm Documented by: Docusate Sodium (Colace) 100 mg PO BID [facility] Last Admin: 09/24/19 09:30 Dose: Not Given Documented by: Sodium Chloride (Sodium Chloride 0.9%) 1,000 mls @ 75 mls/hr IV .[id number] [facility] Last Admin: 09/23/19 23:41 Dose: 75 mls/hr Documented by: Azithromycin 500 mg/ Dextrose 250 mls @ 250 mls/hr IV Q24H [facility]; Protocol Stop: 09/26/19 10:59 Last Infusion: 09/24/19 11:00 Dose: Infused Documented by: Latanoprost (Xalatan Ophth Drops) 1 gtt OU HS [facility] Last Admin: 09/23/19 20:30 Dose: Not Given Documented by: Levothyroxine Sodium (Synthroid) 88 mcg PO [facility] Last Admin: 09/24/19 07:59 Dose: 88 mcg Documented by: Lisinopril (Zestril) 2.[address] [facility] Last Admin: 09/23/19 20:30 Dose: 2.5 mg Documented by: Omeprazole (Prilosec) 20 mg PO [facility] Last Admin: 09/24/19 07:59 Dose: 20 mg Documented by: Ondansetron HCl (Zofran) 2 mg IV Q6HP PRN PRN Reason: Nausea And Vomiting Oseltamivir Phosphate (Tamiflu) 75 mg PO BID [facility] Stop: 09/27/19 20:59 Last Admin: 09/24/19 09:31 Dose: 75 mg Documented by: Potassium Chloride (Kdur) 10 meq PO [facility] Last Admin: 09/24/19 09:31 Dose: 10 meq Documented by: Senna (Senokot) [address] [facility] Last Admin: 09/23/19 20:29 Dose: 2 tab Documented by: Sodium Chloride (Saline Flush) 10 ml IV Q8 [facility] Last Admin: 09/24/19 14:05 Dose: Not Given Documented by: Timolol Maleate (Timoptic 0.5% Ophth Drops) 1 gtt OU DAILY [facility] Last Admin: 09/24/19 09:36 Dose: Not Given Documented by: Vitamin D (Vitamin D3) 5,000 unit PO DAILY [facility] Last Admin: 09/24/19 09:31 Dose: 5,000 unit Documented by: Medical - PN: A/P - Time Spent With Patient Total time spent is greater than 50% in coordination of care (as documented) at patient's floor/unit and/or counseling patient: - Narrative A/P Narrative: Assessment: 1. Positive influenza 2. Possible pneumonia 3. Chronic atrial fibrillation 4. s/p mitral valve replacement with 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 5. retirement use of anticoagulant 6. Leukocytosis 7. Supratherapeutic INR Plan: 1. Positive influenza a and B. droplet isolation. Tamiflu 75 mg twice daily for 5 days Chest x-ray showed Moderately severe alveolar infiltrates throughout both lungs. This could be due to pneumonia, fluid overload or noninfectious inflammatory process. Patient still has a fever. Clinically she is worse considering that she is s/p mitral valve replacement with 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, I will likely to start ceftriaxone and azithromycin today. Procalcitonin 0.58. 2. Patient had atrial fibrillation and status post mitral valve replacement LV the 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 (INR 2.5-3.5). INR 3.0 today. dosing by pharmacy. 3. Leukocytosis could be due to acute distress. Trending down 4. Repeat INR in am 5. DVT prophylaxis: Patient is on warfarin 6. CODE STATUS: Full Deposition: Medical - PN: Qual - VTE Deep Vein Thrombosis/Pulmonary Embolism Present on Admission: No
[2019-09-24] MEDS: 0.9 % SODIUM CHLORIDE 1,000 ML IV SCH ×2 (15:44→23:47)
[2019-09-24] MEDS: LISINOPRIL 5 MG TABLET PO SCH (20:21)
[2019-09-24] MEDS: ALPRAZolam 0.5 MG TABLET PO SCH (20:22)
[2019-09-24] MEDS: SENNOSIDES 1 TABLET PO SCH (20:22)
[2019-09-24] MEDS: LATANOPROST OPHTH DROPS 2.5ML BOTTLE OU SCH (21:02)
[2019-09-25] MEDS: IPRATROPIUM/ALBUTEROL 3 ML AMPUL.NEB NEB SCH ×5 (02:42→18:44)
[2019-09-25] MEDS: 0.9 % SODIUM CHLORIDE 10 ML SYRINGE IV SCH ×3 (05:12→21:03)
[2019-09-25] MEDS: ACETAMINOPHEN 325 MG TABLET PO PRN ×3 (07:11→20:38)
[2019-09-25] MEDS: 0.9 % SODIUM CHLORIDE 1,000 ML IV SCH ×2 (07:14→14:42)
[2019-09-25] MEDS: OMEPRAZOLE 20 MG CAPSULE PO SCH (08:56)
[2019-09-25] MEDS: POTASSIUM CHLORIDE 10 MEQ TABLET PO SCH (08:56)
[2019-09-25 09:15] LABS: Basophils # (Auto) 0.04 K/mcL (0.00-0.30); Basophils % (Auto) 0.4 % (0.0-2.0); Eosinophils # (Auto) 0.16 K/mcL (0.00-0.70); Eosinophils % (Auto) 1.8 % (0.0-7.0); Granulocytes % (Auto) 74.5 % (38.0-78.0); Hematocrit 30.1 % (34.1-44.9); Hemoglobin 9.6 g/dL (11.2-15.7); Lymphocytes # (Auto) 1.19 K/mcL (1.50-4.80); Lymphocytes % (Auto) 13.1 % (15.5-49.0); Mean Cell Volume 92.6 fL (80.0-100.0); Mean Corpuscular HGB Conc 31.9 g/dL (31.0-36.0); Monocytes # (Auto) 0.93 K/mcL (0.10-0.90); Monocytes % (Auto) 10.2 % (1.0-12.0); Platelet Count 298 K/mcL (140-440); RBC 3.25 M/mcL (3.59-5.38); WBC 9.1 K/mcL (4.50-11.00)
[2019-09-25 09:36] LABS: INR 2.3 (0.9-1.1); Prothrombin Time 25.5 sec (11.9-14.5)
[2019-09-25 09:50] LABS: ALT/SGPT 28 U/l (0-40); AST/SGOT 39 U/l (0-37); Albumin 2.7 gm/dL (3.2-5.2); Albumin/Globulin Ratio 0.8 (1.0-2.3); Alkaline Phosphatase 94 U/L (39-117); Bilirubin,Total 0.3 mg/dL (0.0-1.0); Blood Urea Nitrogen 14 mg/dl (8-23); Calcium 8.8 mg/dl (8.6-10.4); Carbon Dioxide 22 mmol/L (22-30); Chloride 111 mmol/L (96-108); Globulin 3.4 gm/dL (2.2-3.7); Glomerular Filtration Rate 83; Glucose 112 mg/dL (70-105)
[2019-09-25] MEDS: cefTRIAXone 1 GM VIAL IV SCH (10:30)
[2019-09-25] MEDS: BUTALB/ACETAMINOPHEN/CAFFEINE 1 TABLET PO SCH (10:36)
[2019-09-25] MEDS: OSELTAMIVIR PHOSPHATE 75 MG CAPSULE PO SCH ×2 (10:36→20:37)
[2019-09-25] MEDS: ATORVASTATIN 20 MG TABLET PO SCH (10:37)
[2019-09-25] MEDS: VITAMIN D3 5,000 UNIT CAPSULE PO SCH (10:37)
[2019-09-25] MEDS: CALCIUM CARBONATE 500 MG TAB.CHEW PO SCH (10:37)
[2019-09-25] MEDS: AZITHROMYCIN 500 MG in DEXTROSE 5% IN WATER 250 ML IV SCH (10:47)
[2019-09-25] MEDS: LEVOTHYROXINE 88 MCG TABLET PO SCH (11:50)
[2019-09-25] MEDS: DOCUSATE SODIUM 100 MG CAPSULE PO SCH ×2 (11:51→20:36)
[2019-09-25] MEDS: TIMOLOL 0.5% OPHTH DROPS BOTTLE 5ML OU SCH (11:53)
--- NOTE | 2019-09-25 17:35 | XRay Report ---
CLINICAL INFORMATION: f/u infiltrates COMPARISON: Multiple x-rays dating back to 12/07/2013 FINDINGS: Moderate cardiomegaly is unchanged. Mitral valve prosthesis remains in stable position. Mediastinum and pulmonary vessels are normal. There is moderate interstitial disease throughout both lungs - more prominent in the perihilar regions. These have worsened since the most recent x-ray two weeks ago 09/14/2019. Small bilateral pleural effusions worsened slightly IMPRESSION: Moderate interstitial disease throughout both lungs that more prominent perihilar regions. The interstitial disease is chronic, however there is been progression from the most recent CT. Suspect edema from prior episode of CHF superimposed upon interstitial fibrosis. Consider: Chest CT. It could be done without IV contrast there is renal insufficiency Interpreted and Authenticated by: Addy Dobbins 09/25/19
[2019-09-25] MEDS ORDERED: ALBUMIN HUMAN 12.5 GM/50 ML BAG IV ONE (18:58)
[2019-09-25] MEDS ORDERED: FUROSEMIDE 20 MG/2 ML VIAL IV ONE (18:58)
--- NOTE | 2019-09-25 20:09 | Internal Med Progress Note ---
Medical - PN: Subj Patient information: Note initiated : 09/25/19 at 8:02 pm Service Date, if different from initiated Date: [] Patient: Ameena Ignacio 84 y/o F admitted on 09/22/19 for here for chest x- ray. Chief Complaint: [] Interval history: 09/22 Pt feels better. has mild sob. Denies fever/chills, headache, runny nose, or chest pain. 09/23 Pt feels fever and chills. She looks tired. temperature 99.3 this morning She is on 2 L White blood cells normalized today, 8.7 INR 3.0 Pre-calcitonin 0.58 09/24 She was lying in bed this morning when I saw her. I asked her "how are you feeling", she replied "I do not know". She no longer has fever. She is on RM during daytime. But she needs oxygen during night. Family mentioned she was desaturated during night at home. pt and family asked oxygen eval and would like to discuss where she should be discharged to [facility] Constitutional: DAD, no weight loss Nose, mouth and throat: no hemoptysis Cardiovascular: no chest pain Respiratory: mild sob. Gastrointestinal: no abdominal pain, diarrhea, nausea, or vomiting Musculoskeletal: no arthralgias Neurological: no headache or dizziness Psychiatric: normal mood - Constitutional Vitals: Vital Signs Temp Pulse Resp BP Pulse Ox 97.8 F 87 20 128/72 97 09/25/19 19:38 09/25/19 19:38 09/25/19 19:38 09/25/19 19:38 09/25/19 19:38 Period Temp Pulse Resp BP Sys/Rogers Pulse Ox Last 24 Hr 96.0 F-98.1 F 70-101 18-22 110-140/58-72 94-98 Intake and Output 09/25/19 09/25/19 09/25/19 05:59 13:59 21:59 Intake Total 1200 490 360 Output Total 700 801 Balance 1200 -210 -441 Weight 65.68 kg Patient Weight 09/26/19 05:59 Weight 65.68 kg Intake & Output: Intake & Output 09/25/19 09/25/19 09/25/19 05:59 13:59 21:59 Intake Total 1200 490 360 Output Total 700 801 Balance 1200 -210 -441 Weight 65.68 kg Intake: IV 1000 250 Sodium Chloride 0.9% 1,000 ml @ 1000 75 mls/hr IV .[id number] [facility] Rx#: [id number] Zithromax 500 mg In Dextrose 5% 250 in Water 250 ml @ 250 mls/hr IV Q24H [facility] Rx#:[id number] Oral 200 240 360 Output: Void Amount 700 800 # of times incontinent of urine 1 Other: Meal Lunch Lunch Percent of Meal Consumed 75% 100% Feeding Ability Assist with Tray Set Up Assist with Tray Set Up Urine Appearance Clear Urine Color Dark Yellow Urine Odor Normal - Additional findings Additional findings: General appearance: cooperative, no acute distress Head exam: atraumatic, normal inspection, normocephalic Eye exam: EOMI, PERRL Sclera: bilateral: normal inspection ENT exam: mucous membranes moist Neck exam: full ROM Neck exam: no tenderness Respiratory exam: mild rhonchi Cardiovascular exam: normal rate and rhythm, +S1, +S2 GI/Abdominal exam: normal bowel sounds, soft, tenderness (very mild tenderness over epigastric area) Extremities exam: no joint swelling, or tenderness Neurological exam: alert, CN II-XII intact, oriented X3, reflexes normal Psychiatric exam: flat affect, normal mood Skin exam: intact Medical - PN: Obj Da - Labs CBC & Chem 7: 09/25/19 06:44 09/25/19 06:44 Labs: Abnormal Lab Results 09/25/19 09/25/19 09/25/19 06:44 06:44 06:44 WBC RBC 3.25 L Hgb 9.6 L Hct 30.1 L RDW 15.0 H Lymph % (Auto) 13.1 L Eos % (Auto) Gran # Lymph # (Auto) 1.19 L [place] # (Auto) 0.93 H Eos # (Auto) PT 25.5 H INR 2.3 H Chloride 111 H Glucose 112 H Calcium AST 39 H NT-Pro-B Natriuret Pep Total Protein Albumin 2.7 L Albumin/Globulin Ratio 0.8 L 09/24/19 09/24/19 09/24/19 05:18 05:15 05:15 WBC RBC 3.36 L Hgb 9.9 L Hct 31.1 L RDW 14.6 H Lymph % (Auto) Eos % (Auto) Gran # Lymph # (Auto) 1.39 L [place] # (Auto) 0.92 H Eos # (Auto) PT 31.9 H INR 3.0 H Chloride Glucose 118 H Calcium 8.1 L AST NT-Pro-B Natriuret Pep Total Protein 5.6 L Albumin 2.5 L Albumin/Globulin Ratio 0.8 L 09/23/19 09/23/19 09/23/19 05:20 05:20 05:20 WBC 12.5 H RBC 3.56 L Hgb 10.6 L Hct 33.3 L RDW Lymph % (Auto) 11.6 L Eos % (Auto) 9.1 H Gran # 8.59 H Lymph # (Auto) 1.45 L [place] # (Auto) 1.19 H Eos # (Auto) 1.13 H PT 38.2 H INR 3.8 H Chloride Glucose 106 H Calcium 8.4 L AST NT-Pro-B Natriuret Pep 2210.0 H Total Protein Albumin 2.8 L Albumin/Globulin Ratio 0.9 L Meds: Medications Acetaminophen (Tylenol) 650 mg PO Q6HP PRN; Protocol PRN Reason: Per Pain Protocol/Fever > 101 Last Admin: 09/25/19 15:21 Dose: 650 mg Documented by: Acetaminophen/Butalbital/Caffeine (Fioricet) 1 tab PO DAILY [facility] Last Admin: 09/25/19 10:36 Dose: 1 tab Documented by: Albuterol/Ipratropium (Duoneb) 3 ml NEB Q4HRT [facility] Last Admin: 09/25/19 18:44 Dose: 3 ml Documented by: Alprazolam (Xanax) 0.5 mg PO HS [facility] Last Admin: 09/24/19 20:22 Dose: 0.5 mg Documented by: Atorvastatin Calcium (Lipitor) 20 mg PO DAILY [facility] Last Admin: 09/25/19 10:37 Dose: 20 mg Documented by: Calcium Carbonate/Glycine (Tums) 500 mg PO DAILY [facility] Last Admin: 09/25/19 10:37 Dose: 500 mg Documented by: Ceftriaxone Sodium (Rocephin) 1 gm IV Q24H [facility]; Protocol Last Admin: 09/25/19 10:30 Dose: 1 gm Documented by: Docusate Sodium (Colace) 100 mg PO BID [facility] Last Admin: 09/25/19 11:51 Dose: 100 mg Documented by: Azithromycin 500 mg/ Dextrose 250 mls @ 250 mls/hr IV Q24H [facility]; Protocol Stop: 09/26/19 10:59 Last Infusion: 09/25/19 11:53 Dose: Infused Documented by: Latanoprost (Xalatan Ophth Drops) 1 gtt OU HS [facility] Last Admin: 09/24/19 21:02 Dose: Not Given Documented by: Levothyroxine Sodium (Synthroid) 88 mcg PO [facility] Last Admin: 09/25/19 11:50 Dose: 88 mcg Documented by: Lisinopril (Zestril) 2.5 mg PO [facility] Last Admin: 09/24/19 20:21 Dose: 2.5 mg Documented by: Omeprazole (Prilosec) 20 mg PO [facility] Last Admin: 09/25/19 08:56 Dose: 20 mg Documented by: Ondansetron HCl (Zofran) 2 mg IV Q6HP PRN PRN Reason: Nausea And Vomiting Oseltamivir Phosphate (Tamiflu) 75 mg PO BID [facility] Stop: 09/27/19 20:59 Last Admin: 09/25/19 10:36 Dose: 75 mg Documented by: Potassium Chloride (Kdur) 10 meq PO [facility] Last Admin: 09/25/19 08:56 Dose: 10 meq Documented by: Senna (Senokot) 2 tab PO [facility] Last Admin: 09/24/19 20:22 Dose: Not Given Documented by: Sodium Chloride (Saline Flush) 10 ml IV Q8 [facility] Last Admin: 09/25/19 16:24 Dose: Not Given Documented by: Timolol Maleate (Timoptic 0.5% Ophth Drops) 1 gtt OU DAILY [facility] Last Admin: 09/25/19 11:53 Dose: Not Given Documented by: Vitamin D (Vitamin D3) 5,000 unit PO DAILY [facility] Last Admin: 09/25/19 10:37 Dose: 5,000 unit Documented by: Medical - PN: A/P - Time Spent With Patient Total time spent is greater than 50% in coordination of care (as documented) at patient's floor/unit and/or counseling patient: - Narrative A/P Narrative: Assessment: 1. Positive influenza 2. Possible pneumonia 3. Chronic atrial fibrillation 4. 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 Leukocytosis 7. Supratherapeutic INR 8. Acute hypoxic respiratory failure Plan: 1. Positive influenza a and B. droplet isolation. Tamiflu 75 mg twice daily for 5 days Chest x-ray showed Moderately severe alveolar infiltrates throughout both lungs. This could be due to pneumonia, fluid overload or noninfectious inflammatory process. considering that she is s/p mitral valve replacement with 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, ceftriaxone and azithromycin were started yesterday Repeat procalcitonin 0.58. 2. Patient had atrial fibrillation and status post mitral valve replacement LV the 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 (INR 2.5-3.5). INR 3.0 today. dosing by pharmacy. 3. Leukocytosis - resolved 4. Repeat INR in am 5. Pt now needs oxygen at night. RT eval 6. DVT prophylaxis: Patient is on warfarin 7. CODE STATUS: Full Deposition: PT/OT - recommendation for discharge Medical - PN: Qual - VTE Deep Vein Thrombosis/Pulmonary Embolism Present on Admission: No
--- NOTE | 2019-09-25 20:26 | Internal Med Progress Note ---
Medical - PN: Subj Patient information: Note initiated : 09/25/19 at 8:20 pm Service Date, if different from initiated Date: [] Patient: Ameena Ignacio a 84 y/o F admitted on 09/22/19 for here for chest x- ray. Chief Complaint: [] Interval history: Ms. Ignacio is a 84 year old F with a history of atrial fibrillation who presented to the ER because she has been having mild fever for days do not feel well for 2 days. 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 She was discharged home with medications. She came back again because she does not feel well for 2 days. In the ER, she was found to have will mild fever and a positive positive influenza a and B. When I saw this patient in the ER, other than symptoms mentioned above, she also complains of malaise, fever and chills. Denied headache, dizziness, chest pain, shortness of breath, abdominal pain, nausea, vomiting, or diarrhea. No recent travel or sick contact. 09/22 Pt feels better. has mild sob. Denies fever/chills, headache, runny nose, or chest pain. 09/23 Pt feels fever and chills. She looks tired. temperature 99.3 this morning She is on 2 L White blood cells normalized today, 8.7 INR 3.0 Pre-calcitonin 0.58 09/24 She was lying in bed this morning when I saw her. I asked her "how are you feeling", she replied "I do not know". She no longer has fever. She is on RM during daytime. But she needs oxygen during night. Family mentioned she was desaturated during night at home. pt and family asked oxygen eval and would like to discuss where she should be discharged to - Constitutional Vitals: Vital Signs Temp Pulse Resp BP Pulse Ox 97.8 F 87 20 128/72 97 09/25/19 19:38 09/25/19 19:38 09/25/19 19:38 09/25/19 19:38 09/25/19 19:38 Period Temp Pulse Resp BP Sys/Rogers Pulse Ox Last 24 Hr 96.0 F-98.1 F 70-101 18-22 110-140/58-72 94-98 Intake and Output 09/25/19 09/25/19 09/25/19 05:59 13:59 21:59 Intake Total 1200 490 360 Output Total 700 801 Balance 1200 210 441 Weight 65.68 kg Patient Weight 09/26/19 05:59 Weight 65.68 kg Intake & Output: Intake & Output 09/25/19 09/25/19 09/25/19 05:59 13:59 21:59 Intake Total 1200 490 360 Output Total 700 801 Balance 1200 210 -954 Weight 65.68 kg Intake: IV 1000 250 Sodium Chloride 0.9% 1,000 ml @ 1000 75 mls/hr IV .[id number] [facility] Rx#: [id number] Zithromax 500 mg In Dextrose 5% 250 in Water 250 ml @ 250 mls/hr IV Q24H [facility] Rx#:[id number] Oral 200 240 360 Output: Void Amount 700 800 # of times incontinent of urine 1 Other: Meal Lunch Lunch Percent of Meal Consumed 75% 100% Feeding Ability Assist with Tray Set Up Assist with Tray Set Up Urine Appearance Clear Urine Color Dark Yellow Urine Odor Normal Exam: General: Alert, Awake, No acute Distress Eyes/N/T: EOMI, Head/Neck: neck supple, CV: irreg, No murmurs, Pulm: Clear b/l, no wheezing/rhonchi/rales Abd: soft, nontender, +BS x4 Ext: no clubbing/cyanosis/edema Neuro: Alert, no focal deficits, moves all extremities, Skin: warm/dry Medical - PN: Obj Da - Labs CBC & Chem 7: 09/25/19 06:44 09/25/19 06:44 Labs: Abnormal Lab Results 09/25/19 09/25/19 09/25/19 06:44 06:44 06:44 WBC RBC 3.25 L Hgb 9.6 L Hct 30.1 L RDW 15.0 H Lymph % (Auto) 13.1 L Eos % (Auto) Gran # Lymph # (Auto) 1.19 L [place] # (Auto) 0.93 H Eos # (Auto) PT 25.5 H INR 2.3 H Chloride 111 H Glucose 112 H Calcium AST 39 H NT-Pro-B Natriuret Pep Total Protein Albumin 2.7 L Albumin/Globulin Ratio 0.8 L 09/24/19 09/24/19 09/24/19 05:18 05:15 05:15 WBC RBC 3.36 L Hgb 9.9 L Hct 31.1 L RDW 14.6 H Lymph % (Auto) Eos % (Auto) Gran # Lymph # (Auto) 1.39 L [place] # (Auto) 0.92 H Eos # (Auto) PT 31.9 H INR 3.0 H Chloride Glucose 118 H Calcium 8.1 L AST NT-Pro-B Natriuret Pep Total Protein 5.6 L Albumin 2.5 L Albumin/Globulin Ratio 0.8 L 09/23/19 09/23/19 09/23/19 05:20 05:20 05:20 WBC 12.5 H RBC 3.56 L Hgb 10.6 L Hct 33.3 L RDW Lymph % (Auto) 11.6 L Eos % (Auto) 9.1 H Gran # 8.59 H Lymph # (Auto) 1.45 L [place] # (Auto) 1.19 H Eos # (Auto) 1.13 H PT 38.2 H INR 3.8 H Chloride Glucose 106 H Calcium 8.4 L AST NT-Pro-B Natriuret Pep 2210.0 H Total Protein Albumin 2.8 L Albumin/Globulin Ratio 0.9 L Meds: Medications Acetaminophen (Tylenol) 650 mg PO Q6HP PRN; Protocol PRN Reason: Per Pain Protocol/Fever > 101 Last Admin: 09/25/19 15:21 Dose: 650 mg Documented by: Acetaminophen/Butalbital/Caffeine (Fioricet) 1 tab PO DAILY [facility] Last Admin: 09/25/19 10:36 Dose: 1 tab Documented by: Albuterol/Ipratropium (Duoneb) 3 ml NEB Q4HRT [facility] Last Admin: 09/25/19 18:44 Dose: 3 ml Documented by: Alprazolam (Xanax) 0.5 mg PO HS [facility] Last Admin: 09/24/19 20:22 Dose: 0.5 mg Documented by: Atorvastatin Calcium (Lipitor) 20 mg PO DAILY [facility] Last Admin: 09/25/19 10:37 Dose: 20 mg Documented by: Calcium Carbonate/Glycine (Tums) 500 mg PO DAILY [facility] Last Admin: 09/25/19 10:37 Dose: 500 mg Documented by: Ceftriaxone Sodium (Rocephin) 1 gm IV Q24H [facility]; Protocol Last Admin: 09/25/19 10:30 Dose: 1 gm Documented by: Docusate Sodium (Colace) 100 mg PO BID [facility] Last Admin: 09/25/19 11:51 Dose: 100 mg Documented by: Azithromycin 500 mg/ Dextrose 250 mls @ 250 mls/hr IV Q24H [facility]; Protocol Stop: 09/26/19 10:59 Last Infusion: 09/25/19 11:53 Dose: Infused Documented by: Latanoprost (Xalatan Ophth Drops) 1 gtt OU [facility] Last Admin: 09/24/19 21:02 Dose: Not Given Documented by: Levothyroxine Sodium (Synthroid) 88 mcg PO [facility] Last Admin: 09/25/19 11:50 Dose: 88 mcg Documented by: Lisinopril (Zestril) 2.5 mg PO [facility] Last Admin: 09/24/19 20:21 Dose: 2.5 mg Documented by: Omeprazole (Prilosec) 20 mg PO [facility] Last Admin: 09/25/19 08:56 Dose: 20 mg Documented by: Ondansetron HCl (Zofran) 2 mg IV Q6HP PRN PRN Reason: Nausea And Vomiting Oseltamivir Phosphate (Tamiflu) 75 mg PO BID [facility] Stop: 09/27/19 20:59 Last Admin: 09/25/19 10:36 Dose: 75 mg Documented by: Potassium Chloride (Kdur) 10 meq PO [facility] Last Admin: 09/25/19 08:56 Dose: 10 meq Documented by: Senna (Senokot) 2 tab PO [facility] Last Admin: 09/24/19 20:22 Dose: Not Given Documented by: Sodium Chloride (Saline Flush) 10 ml IV Q8 [facility] Last Admin: 09/25/19 16:24 Dose: Not Given Documented by: Timolol Maleate (Timoptic 0.5% Ophth Drops) 1 gtt OU DAILY [facility] Last Admin: 09/25/19 11:53 Dose: Not Given Documented by: Vitamin D (Vitamin D3) 5,000 unit PO DAILY [facility] Last Admin: 09/25/19 10:37 Dose: 5,000 unit Documented by: Medical - PN: A/P - Time Spent With Patient Total time spent is greater than 50% in coordination of care (as documented) at patient's floor/unit and/or counseling patient: - Narrative A/P Narrative: Assessment: *Positive influenza *PNA: -PCT 0.75 *Acute hypoxic respiratory failure: -on room air *Chronic atrial fibrillation *s/p mitral valve replacement with 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 -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 CODE STATUS: Full Medical - PN: Qual - VTE Deep Vein Thrombosis/Pulmonary Embolism Present on Admission: No
[2019-09-25] MEDS: LISINOPRIL 5 MG TABLET PO SCH (20:37)
[2019-09-25] MEDS: ALPRAZolam 0.5 MG TABLET PO SCH (20:38)
[2019-09-25] MEDS: SENNOSIDES 1 TABLET PO SCH (21:01)
[2019-09-25] MEDS: LATANOPROST OPHTH DROPS 2.5ML BOTTLE OU SCH (21:03)
[2019-09-25] MEDS ORDERED: VANCOMYCIN PER PHARMACY IV SCH (23:35)
[2019-09-25] MEDS ORDERED: VANCOMYCIN 1,000 MG in 0.9 % SODIUM CHLORIDE 250 ML IV ONE (23:36)
[2019-09-25] MEDS ORDERED: LABETALOL 5 MG/ML ML IV ONE (23:40)
[2019-09-25] MEDS ORDERED: hydrOXYzine 10 MG TABLET PO ONE (23:42)
[2019-09-26] MEDS: IPRATROPIUM/ALBUTEROL 3 ML AMPUL.NEB NEB SCH ×7 (00:10→22:25)
[2019-09-26] MEDS: ACETAMINOPHEN 325 MG TABLET PO PRN ×4 (03:09→20:49)
[2019-09-26] MEDS: 0.9 % SODIUM CHLORIDE 10 ML SYRINGE IV SCH ×4 (05:53→20:51)
--- NOTE | 2019-09-26 07:35 | Internal Med Progress Note ---
Medical - PN: Subj Patient information: Note initiated : 09/26/19 at 7:32 am Service Date, if different from initiated Date: [] Patient: Ameena Ignacio a 84 y/o F admitted on 09/22/19 for here for chest x- ray. Chief Complaint: [] Interval history: Ms. Ignacio is a 84 year old F with a history of atrial fibrillation who presented to the ER because she has been having mild fever for days do not feel well for 2 days. As per patient, she has been having fever for days for which she went to the ER from medical reception. She was discharged home with medications. She came back again because she does not feel well for 2 days. In the ER, she was found to have will mild fever and a positive positive influenza a and B. When I saw this patient in the ER, other than symptoms mentioned above, she also complains of malaise, fever and chills. Denied headache, dizziness, chest pain, shortness of breath, abdominal pain, nausea, vomiting, or diarrhea. No recent travel or sick contact. 09/22 Pt feels better. has mild sob. Denies fever/chills, headache, runny nose, or chest pain. 09/23 Pt feels fever and chills. She looks tired. temperature 99.3 this morning She is on 2 L White blood cells normalized today, 8.7 INR 3.0 Pre-calcitonin 0.58 09/24 She was lying in bed this morning when I saw her. I asked her "how are you feeling", she replied "I do not know". She no longer has fever. She is on RM during daytime. But she needs oxygen during night. Family mentioned she was desaturated during night at home. pt and family asked oxygen eval and would like to discuss where she should be discharged to 09/25 Poor sleep because of interruptions last night., She is tired. She has a cough but not producing sputum. Denies shortness of breath at rest. Family bedside. Fever last night. Good urine output last night. Review of Systems: denies headache//chills/nausea/vomiting/chest or abdominal pain/diarrhea. Otherwise see above. - Constitutional Vitals: Vital Signs Temp Pulse Resp BP Pulse Ox 98.5 F 92 H 20 134/75 96 09/26/19 06:05 09/26/19 07:17 09/26/19 07:17 09/26/19 03:07 09/26/19 07:19 Period Temp Pulse Resp BP Sys/Rogers Pulse Ox Last 24 Hr 96.0 F-102.9 F 75-111 18-36 110-178/58-78 91-98 Intake and Output 09/25/19 09/26/19 09/26/19 21:59 05:59 13:59 Intake Total 410 550 Output Total 1376 902 401 Balance -966 -352 -401 Weight 65.68 kg Intake & Output: Intake & Output 09/25/19 09/26/19 09/26/19 21:59 05:59 13:59 Intake Total 410 550 Output Total 1376 902 401 Balance -966 -352 -401 Weight 65.68 kg Intake: IV 50 250 Vancomycin 1,000 mg In Sodium 250 Chloride 0.9% 250 ml @ 250 mls/ hr IV ONCE ONE Rx#:[id number] Oral 360 300 Output: Void Amount 1375 900 400 # of times incontinent of urine 1 2 1 Other: Meal Lunch Percent of Meal Consumed 100% Urine Appearance Clear Clear Urine Color Bright Yellow Pale Urine Odor Normal Normal # Voids 1 Exam: General: Alert, Awake, No acute Distress Eyes/N/T: EOMI, Head/Neck: neck supple, CV: irreg, No murmurs, Pulm: b/l rales/rhonchi, no wheezing Abd: soft, nontender, +BS x4 Ext: no clubbing/cyanosis, 1+ b/l LE edema Neuro: Alert, no focal deficits, moves all extremities, Skin: warm/dry Medical - PN: Obj Da - Labs CBC & Chem 7: 09/25/19 06:44 09/25/19 06:44 Labs: Abnormal Lab Results 09/25/19 09/25/19 09/25/19 06:44 06:44 06:44 RBC 3.25 L Hgb 9.6 L Hct 30.1 L RDW 15.0 H Lymph % (Auto) 13.1 L Lymph # (Auto) 1.19 L [place] # (Auto) 0.93 H PT 25.5 H INR 2.3 H Chloride 111 H Glucose 112 H Calcium AST 39 H Total Protein Albumin 2.7 L Albumin/Globulin Ratio 0.8 L 09/24/19 09/24/19 09/24/19 05:18 05:15 05:15 RBC 3.36 L Hgb 9.9 L Hct 31.1 L RDW 14.6 H Lymph % (Auto) Lymph # (Auto) 1.39 L [place] # (Auto) 0.92 H PT 31.9 H INR 3.0 H Chloride Glucose 118 H Calcium 8.1 L AST Total Protein 5.6 L Albumin 2.5 L Albumin/Globulin Ratio 0.8 L Meds: Medications Acetaminophen (Tylenol) 650 mg PO Q6HP PRN; Protocol PRN Reason: Per Pain Protocol/Fever > 101 Last Admin: 09/26/19 03:09 Dose: 650 mg Documented by: Acetaminophen/Butalbital/Caffeine (Fioricet) 1 tab PO DAILY [facility] Last Admin: 09/25/19 10:36 Dose: 1 tab Documented by: Albuterol/Ipratropium (Duoneb) 3 ml NEB Q4HRT [facility] Last Admin: 09/26/19 07:16 Dose: 3 ml Documented by: Alprazolam (Xanax) 0.5 mg PO HS [facility] Last Admin: 09/25/19 20:38 Dose: 0.5 mg Documented by: Atorvastatin Calcium (Lipitor) 20 mg PO DAILY [facility] Last Admin: 09/25/19 10:37 Dose: 20 mg Documented by: Calcium Carbonate/Glycine (Tums) 500 mg PO DAILY [facility] Last Admin: 09/25/19 10:37 Dose: 500 mg Documented by: Ceftriaxone Sodium (Rocephin) 1 gm IV Q24H [facility]; Protocol Last Admin: 09/25/19 10:30 Dose: 1 gm Documented by: Docusate Sodium (Colace) 100 mg PO BID [facility] Last Admin: 09/25/19 20:36 Dose: Not Given Documented by: Azithromycin 500 mg/ Dextrose 250 mls @ 250 mls/hr IV Q24H [facility]; Protocol Stop: 09/26/19 10:59 Last Infusion: 09/25/19 11:53 Dose: Infused Documented by: Vancomycin HCl 1,500 mg/ (Sodium Chloride) 500 mls @ 333.3 mls/hr IV Q24H [facility] Latanoprost (Xalatan Ophth Drops) 1 gtt OU HS [facility] Last Admin: 09/25/19 21:03 Dose: 1 gtt Documented by: Levothyroxine Sodium (Synthroid) 88 mcg PO [facility] Last Admin: 09/25/19 11:50 Dose: 88 mcg Documented by: Lisinopril (Zestril) 2.5 mg PO [facility] Last Admin: 09/25/19 20:37 Dose: 2.5 mg Documented by: Omeprazole (Prilosec) 20 mg PO [facility] Last Admin: 09/25/19 08:56 Dose: 20 mg Documented by: Ondansetron HCl (Zofran) 2 mg IV Q6HP PRN PRN Reason: Nausea And Vomiting Oseltamivir Phosphate (Tamiflu) 75 mg PO BID [facility] Stop: 09/27/19 20:59 Last Admin: 09/25/19 20:37 Dose: 75 mg Documented by: Potassium Chloride (Kdur) 10 meq PO [facility] Last Admin: 09/25/19 08:56 Dose: 10 meq Documented by: Senna (Senokot) 2 tab PO [facility] Last Admin: 09/25/19 21:01 Dose: Not Given Documented by: Sodium Chloride (Saline Flush) 10 ml IV Q8 [facility] Last Admin: 09/26/19 05:53 Dose: Not Given Documented by: Timolol Maleate (Timoptic 0.5% Ophth Drops) 1 gtt OU DAILY [facility] Last Admin: 09/25/19 11:53 Dose: Not Given Documented by: Vancomycin HCl (Vancomycin Per Pharmacy) 1 order IV [facility] [place]; Protocol Vitamin D (Vitamin D3) 5,000 unit PO DAILY [facility] Last Admin: 09/25/19 10:37 Dose: 5,000 unit Documented by: Medical - PN: A/P - Time Spent With Patient Total time spent is greater than 50% in coordination of care (as documented) at patient's floor/unit and/or counseling patient: - Narrative A/P Narrative: Assessment: *Positive influenza: *PNA: -PCT 0.75 *SIRS: -leukocytosis improved -febrile o/n *Acute hypoxic respiratory failure: -now on room air, but on oxymask last night *Chronic atrial fibrillation: on warfarin *s/p 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
[2019-09-26] MEDS: LEVOTHYROXINE 88 MCG TABLET PO SCH (08:03)
[2019-09-26] MEDS: OMEPRAZOLE 20 MG CAPSULE PO SCH (08:03)
[2019-09-26] MEDS: POTASSIUM CHLORIDE 10 MEQ TABLET PO SCH (08:03)
[2019-09-26 08:12] LABS: ALT/SGPT 33 U/l (0-40); AST/SGOT 43 U/l (0-37); Albumin 3.1 gm/dL (3.2-5.2); Alkaline Phosphatase 98 U/L (39-117); Bilirubin,Direct < 0.2 mg/dL (0.0-0.3); Bilirubin,Total 0.5 mg/dL (0.0-1.0); Blood Urea Nitrogen 16 mg/dl (8-23); Calcium 8.8 mg/dl (8.6-10.4); Carbon Dioxide 26 mmol/L (22-30); Chloride 102 mmol/L (96-108); Globulin 3.1 gm/dL (2.2-3.7); Glomerular Filtration Rate 67; Glucose 108 mg/dL (70-105); Lactate Dehydrogenase 483 U/L (94-250); Phosphorous 2.7 mg/dL (2.7-4.5); Triglycerides 85 mg/dl (<150); Uric Acid 5.7 mg/dL (2.5-8.0)
[2019-09-26] MEDS: CALCIUM CARBONATE 500 MG TAB.CHEW PO SCH (08:33)
[2019-09-26] MEDS: VITAMIN D3 5,000 UNIT CAPSULE PO SCH (08:33)
[2019-09-26] MEDS: ATORVASTATIN 20 MG TABLET PO SCH (08:33)
[2019-09-26] MEDS: BUTALB/ACETAMINOPHEN/CAFFEINE 1 TABLET PO SCH (08:33)
[2019-09-26] MEDS: OSELTAMIVIR PHOSPHATE 75 MG CAPSULE PO SCH ×2 (08:33→20:51)
[2019-09-26] MEDS: DOCUSATE SODIUM 100 MG CAPSULE PO SCH (08:39)
[2019-09-26] MEDS: cefTRIAXone 1 GM VIAL IV SCH (09:35)
[2019-09-26] MEDS: TIMOLOL 0.5% OPHTH DROPS BOTTLE 5ML OU SCH (09:42)
[2019-09-26] MEDS: AZITHROMYCIN 500 MG in DEXTROSE 5% IN WATER 250 ML IV SCH (10:27)
[2019-09-26] MEDS ORDERED: ALBUMIN HUMAN 12.5 GM/50 ML BAG IV ONE (10:37)
[2019-09-26] MEDS ORDERED: FUROSEMIDE 40 MG/4 ML VIAL IV ONE (11:44)
[2019-09-26] MEDS: VANCOMYCIN 1,500 MG in 0.9 % SODIUM CHLORIDE 500 ML IV SCH (12:59)
--- NOTE | 2019-09-26 15:14 | Cat Scan Report ---
CLINICAL INFORMATION: Dyspnea COMPARISON: None TECHNIQUE: 0.625 mm axial slices were obtained from the lung apices through the bases without intravenous contrast. 2.5 mm Sagittal, coronal and axial reformatted images were processed and reviewed at bone, lung and soft tissue windows. 7 mm axial MIP images were also reconstructed to optimize pulmonary nodule detection.The exam was performed using radiation dose optimization techniques including, but not limited to, automated exposure control, adjustment of the mA and/or kV according to patient size and use of iterative reconstruction technique. FINDINGS: Pulmonary parenchymal windows show extensive mixed interstitial and groundglass airspace disease throughout both upper, right middle and both lower lobes in a nonspecific pattern. Moderate bilateral pleural effusions appreciated. Mediastinal windows show the noncontrasted thoracic aorta is normal in diameter. There is mild enlargement of the central pulmonary arteries suggesting pulmonary hypertension. Multiple moderately enlarged mediastinal lymph nodes include subcarinal, both hilar, lower paratracheal and AP window regions which likely represents benign reactive adenopathy. The esophagus is unremarkable. The heart is moderately enlarged. Mitral valve prostheses in satisfactory position. Thyroid is diminutive. Bone windows show no osseous abnormality Images through the superior abdomen show no abnormality. IMPRESSION: 1. Extensive mixed groundglass and interstitial airspace disease throughout both lungs with moderate bilateral pleural effusions. This is specific and may represent infection, aspiration or edema from CHF. Underlying interstitial fibrosis is also suspected. Mediastinal and hilar adenopathy should represent benign reactive lymph nodes. Interpreted and Authenticated by: Addy Dobbins 09/26/19
--- NOTE | 2019-09-26 16:38 | Ultrasound Report ---
CLINICAL INFORMATION: Pre-Thoracentesis fluid assessment COMPARISON: None. FINDINGS: Moderate simple appearing left pleural effusion appreciated IMPRESSION: Moderate simple left pleural effusion Interpreted and Authenticated by: Addy Dobbins 09/26/19
--- NOTE | 2019-09-26 17:32 | Ultrasound Report ---
Ultrasound-guided left thoracentesis CLINICAL INFORMATION: Moderate bilateral pleural effusions TECHNIQUE: Procedure and risks including possibility of bleeding, infection, and pneumothorax were explained to the patient. They understood and wished to proceed. With the patient in upright position, the fluid was first sonographically localized over the posterior left 10th intercostal space at posterior axillary line. The skin overlying this region was marked, prepped and locally anesthetized with 1% lidocaine using a 25-gauge needle to the level the parietal pleura. An 18-gauge Yueh needle was then advanced under sonographic guidance into the pleural fluid and approximately 300 cc of simple appearing transudative fluid was aspirated. Post procedure scanning shows only minimal residual fluid. Patient tolerated procedure well without apparent complication. Follow-up chest x-ray to be obtained IMPRESSION: Successful thoracentesis yielding 300 cc of transudative appearing simple pleural fluid. No apparent complication Interpreted and Authenticated by: Addy Dobbins 09/26/19
--- NOTE | 2019-09-26 17:47 | XRay Report ---
CLINICAL INFORMATION: Post Thoracentisis COMPARISON: 09/25/2019. FINDINGS: Mild cardiomegaly is unchanged. Mitral valve prostheses again noted. Mediastinum is unremarkable. Diffuse increased interstitial/alveolar airspace disease throughout both lungs has worsened since yesterday's study. Following left thoracentesis, there is no residual pleural effusion. No pneumothorax or other complication. Small right pleural effusion persists. IMPRESSION: 1. Diffuse interstitial and alveolar infiltrates throughout both lungs worsening from yesterday. Consider infection, ARDS and aspiration 2. Following left thoracentesis, there is no residual left pleural effusion. No pneumothorax or other complication Interpreted and Authenticated by: Addy Dobbins 09/26/19
[2019-09-26 18:29] LABS: Glucose,Pleural Fluid 110 mg/dL; LDH,Pleural Fluid 141 U/L
[2019-09-26 18:49] LABS: Appearance,Pleural Fluid CLEAR; Color,Pleural Fluid YELLOW; Nucleated Cells,Pleural Fld 39 /cumm; RBC,Pleural Fluid < 50000 /cumm
[2019-09-26 18:54] LABS: Lymphocytes,Pleural Fluid 15 %; Macrophages,Pleural Fluid 35 %; Mesothelial,Pleural Fluid 1 %; Monocytes,Pleural Fluid 1 %; Neutrophils,Pleural Fluid 48 %
[2019-09-26] MEDS: CEFEPIME 2 GM VIAL IV SCH (19:13)
[2019-09-26] MEDS: ALPRAZolam 0.5 MG TABLET PO SCH (20:49)
[2019-09-26] MEDS: LATANOPROST OPHTH DROPS 2.5ML BOTTLE OU SCH (20:49)
[2019-09-26] MEDS: MELATONIN 3 MG TABLET PO SCH (20:50)
[2019-09-26] MEDS: SENNOSIDES 1 TABLET PO SCH (20:50)
[2019-09-26] MEDS: LISINOPRIL 5 MG TABLET PO SCH (20:50)
[2019-09-27] MEDS: CEFEPIME 2 GM VIAL IV SCH ×3 (01:07→21:10)
[2019-09-27] MEDS: ACETAMINOPHEN 325 MG TABLET PO PRN ×3 (02:25→21:28)
[2019-09-27] MEDS: IPRATROPIUM/ALBUTEROL 3 ML AMPUL.NEB NEB SCH ×6 (02:26→23:25)
[2019-09-27] MEDS: 0.9 % SODIUM CHLORIDE 10 ML SYRINGE IV SCH ×3 (05:56→21:10)
[2019-09-27 06:23] LABS: Basophils # (Auto) 0.09 K/mcL (0.00-0.30); Basophils % (Auto) 0.8 % (0.0-2.0); Eosinophils # (Auto) 0.81 K/mcL (0.00-0.70); Eosinophils % (Auto) 7.6 % (0.0-7.0); Hematocrit 30.3 % (34.1-44.9); Hemoglobin 9.9 g/dL (11.2-15.7); Lymphocytes # (Auto) 1.02 K/mcL (1.50-4.80); Lymphocytes % (Auto) 9.6 % (15.5-49.0); Mean Cell Volume 92.7 fL (80.0-100.0); Mean Corpuscular HGB Conc 32.7 g/dL (31.0-36.0); Mean Platelet Volume 9.7 fL (7.4-10.4); Monocytes # (Auto) 0.74 K/mcL (0.10-0.90); Platelet Count 309 K/mcL (140-440); RBC 3.27 M/mcL (3.59-5.38); Red Cell Distribution Width 15.5 % (11.5-14.5); WBC 10.6 K/mcL (4.50-11.00)
[2019-09-27 06:42] LABS: ALT/SGPT 32 U/l (0-40); AST/SGOT 47 U/l (0-37); Albumin 3.1 gm/dL (3.2-5.2); Alkaline Phosphatase 107 U/L (39-117); Bilirubin,Direct 0.2 mg/dL (0.0-0.3); Bilirubin,Total 0.6 mg/dL (0.0-1.0); Blood Urea Nitrogen 18 mg/dl (8-23); Calcium 8.7 mg/dl (8.6-10.4); Carbon Dioxide 28 mmol/L (22-30); Chloride 100 mmol/L (96-108); Globulin 3.2 gm/dL (2.2-3.7); Glomerular Filtration Rate 58; Glucose 104 mg/dL (70-105); Lactate Dehydrogenase 475 U/L (94-250); Phosphorous 2.8 mg/dL (2.7-4.5); Triglycerides 81 mg/dl (<150); Uric Acid 6.1 mg/dL (2.5-8.0)
--- NOTE | 2019-09-27 07:38 | Internal Med Progress Note ---
Medical - PN: Subj Patient information: Note initiated : 09/27/19 at 7:31 am Service Date, if different from initiated Date: [] Patient: Ameena Ignacio a 84 y/o F admitted on 09/22/19 for here for chest x- ray. Chief Complaint: [] Interval history: Ms. Ignacio is a 84 year old F with a history of atrial fibrillation who presented to the ER because she has been having mild fever for days do not feel well for 2 days. As per patient, she has been having fever for days for which she went to the ER from medical technicians. She was discharged home with medications. She came back again because she does not feel well for 2 days. In the ER, she was found to have will mild fever and a positive positive influenza a and B. When I saw this patient in the ER, other than symptoms mentioned above, she also complains of malaise, fever and chills. Denied headache, dizziness, chest pain, shortness of breath, abdominal pain, nausea, vomiting, or diarrhea. No recent travel or sick contact. 09/22 Pt feels better. has mild sob. Denies fever/chills, headache, runny nose, or chest pain. 09/23 Pt feels fever and chills. She looks tired. temperature 99.3 this morning She is on 2 L White blood cells normalized today, 8.7 INR 3.0 Pre-calcitonin 0.58 09/24 She was lying in bed this morning when I saw her. I asked her "how are you feeling", she replied "I do not know". She no longer has fever. She is on RM during daytime. But she needs oxygen during night. Family mentioned she was desaturated during night at home. pt and family asked oxygen eval and would like to discuss where she should be discharged to 09/25 Poor sleep because of interruptions last night., She is tired. She has a cough but not producing sputum. Denies shortness of breath at rest. Family bedside. Fever last night. Good urine output last night. Discussion with family patient has been having fever for almost 3 weeks since primarily at night. She was seen at [facility] few weeks ago for atrial fibrillation with rapid ventricular rate and was cardioverted sounds like. She follows with [place] [facility]. Further the records obtained: She had a transthoracic echocardiogram August appointment and then she had a transesophageal echocardiogram on September 15 for the cardioversion. EF 50% on MELISSA, RV mildly reduced fxn, Mechanical MV in mitral position, 09/26 Patient more alert this morning. Slept a little bit better last night. Denies any cough or shortness of breath. Decreased oxygenation. Calcitonin/ESR/CRP all improved today. I asked Dr. Carrera to see the patient given what appears to be underlying interstitial lung disease. Review of Systems: denies headache//chills/nausea/vomiting/chest or abdominal pain/diarrhea. Otherwise see above. - Constitutional Vitals: Vital Signs Temp Pulse Resp BP Pulse Ox 98.5 F 90 22 150/76 99 09/27/19 05:01 09/27/19 02:49 09/27/19 02:49 09/27/19 02:49 09/27/19 02:49 Period Temp Pulse Resp BP Sys/Rogers Pulse Ox Last 24 Hr 97.8 F-100.9 F 77-90 14-22 114-150/62-80 91-99 Intake and Output 09/26/19 09/27/19 09/27/19 21:59 05:59 13:59 Intake Total 740 200 Output Total 4 Balance 736 200 Weight 62.709 kg Intake & Output: Intake & Output 09/26/19 09/27/19 09/27/19 21:59 05:59 13:59 Intake Total 740 200 Output Total 4 Balance 736 200 Weight 62.709 kg Intake: IV 500 Vancomycin 1,500 mg In Sodium 500 Chloride 0.9% 500 ml @ 333.3 mls/hr IV Q24H [facility] Rx#: [id number] Oral 240 200 Output: # of times incontinent of urine 4 Other: Meal Dinner Percent of Meal Consumed 75% Exam: General: Alert, Awake, No acute Distress Eyes/N/T: EOMI, Head/Neck: neck supple, CV: irreg, No murmurs, Pulm: bibase rales/rhonchi, no wheezing Abd: soft, nontender, +BS x4 Ext: no clubbing/cyanosis, trace-1+ b/l LE edema Neuro: Alert, no focal deficits, moves all extremities, Skin: warm/dry Medical - PN: Obj Da - Labs CBC & Chem 7: 09/27/19 05:38 09/27/19 05:38 Labs: Abnormal Lab Results 09/27/19 09/27/19 09/26/19 05:38 05:38 06:06 RBC 3.27 L Hgb 9.9 L Hct 30.3 L RDW 15.5 H Lymph % (Auto) 9.6 L Eos % (Auto) 7.6 H Lymph # (Auto) 1.02 L Foard # (Auto) Eos # (Auto) 0.81 H ESR PT INR Chloride Glucose Calcium GGT 131 H AST 47 H Lactate Dehydrogenase 475 H C-Reactive Protein 9.5 H Total Protein Albumin 3.1 L Albumin/Globulin Ratio 09/26/19 09/26/19 09/25/19 06:06 06:06 06:44 RBC Hgb Hct RDW Lymph % (Auto) Eos % (Auto) Lymph # (Auto) Foard # (Auto) Eos # (Auto) ESR 39 H PT 25.5 H INR 2.3 H Chloride Glucose 108 H Calcium GGT 96 H AST 43 H Lactate Dehydrogenase 483 H C-Reactive Protein Total Protein Albumin 3.1 L Albumin/Globulin Ratio 09/25/19 09/25/19 09/24/19 06:44 06:44 05:18 RBC 3.25 L Hgb 9.6 L Hct 30.1 L RDW 15.0 H Lymph % (Auto) 13.1 L Eos % (Auto) Lymph # (Auto) 1.19 L Foard # (Auto) 0.93 H Eos # (Auto) ESR PT INR Chloride 111 H Glucose 112 H 118 H Calcium 8.1 L GGT AST 39 H Lactate Dehydrogenase C-Reactive Protein Total Protein 5.6 L Albumin 2.7 L 2.5 L Albumin/Globulin Ratio 0.8 L 0.8 L 09/24/19 09/24/19 05:15 05:15 RBC 3.36 L Hgb 9.9 L Hct 31.1 L RDW 14.6 H Lymph % (Auto) Eos % (Auto) Lymph # (Auto) 1.39 L Foard # (Auto) 0.92 H Eos # (Auto) ESR PT 31.9 H INR 3.0 H Chloride Glucose Calcium GGT AST Lactate Dehydrogenase C-Reactive Protein Total Protein Albumin Albumin/Globulin Ratio Meds: Medications Acetaminophen (Tylenol) 650 mg PO Q6HP PRN; Protocol PRN Reason: Per Pain Protocol/Fever > 101 Last Admin: 09/27/19 02:25 Dose: 650 mg Documented by: Acetaminophen/Butalbital/Caffeine (Fioricet) 1 tab PO DAILY [facility] Last Admin: 09/26/19 08:33 Dose: 1 tab Documented by: Albuterol/Ipratropium (Duoneb) 3 ml NEB Q4HRT [facility] Last Admin: 09/27/19 07:20 Dose: 3 ml Documented by: Alprazolam (Xanax) 0.5 mg PO [facility] Last Admin: 09/26/19 20:49 Dose: 0.5 mg Documented by: Atorvastatin Calcium (Lipitor) 20 mg PO DAILY [facility] Last Admin: 09/26/19 08:33 Dose: 20 mg Documented by: Calcium Carbonate/Glycine (Tums) 500 mg PO DAILY [facility] Last Admin: 09/26/19 08:33 Dose: 500 mg Documented by: Cefepime HCl (Maxipime) 2 gm IV Q12H [facility]; Protocol Last Admin: 09/27/19 01:07 Dose: 2 gm Documented by: Vancomycin HCl 1,500 mg/ (Sodium Chloride) 500 mls @ 333.3 mls/hr IV Q24H [facility] Last Infusion: 09/26/19 14:35 Dose: Infused Documented by: Latanoprost (Xalatan Ophth Drops) 1 gtt OU [facility] Last Admin: 09/26/19 20:49 Dose: 1 gtt Documented by: Levothyroxine Sodium (Synthroid) 88 mcg PO [facility] Last Admin: 09/26/19 08:03 Dose: 88 mcg Documented by: Lisinopril (Zestril) 2.5 mg PO [facility] Last Admin: 09/26/19 20:50 Dose: 2.5 mg Documented by: Melatonin (Melatonin 3mg Tablet) 3 mg PO QHS [facility] Last Admin: 09/26/19 20:50 Dose: 3 mg Documented by: [facility]) [facility] Last Admin: 09/26/19 08:03 Dose: 20 mg Documented by: Ondansetron HCl (Zofran) 2 mg IV Q6HP PRN PRN Reason: Nausea And Vomiting Oseltamivir Phosphate (Tamiflu) 75 mg PO BID [facility] Stop: 09/27/19 20:59 Last Admin: 09/26/19 20:51 Dose: 75 mg Documented by: Potassium Chloride (Kdur) 10 meq PO QAMCC [facility] Last Admin: 09/26/19 08:03 Dose: 10 meq Documented by: Drew (Senokot) 2 tab PO HS [facility] Last Admin: 09/26/19 20:50 Dose: Not Given Documented by: Sodium Chloride (Saline Flush) 10 ml IV Q8 [facility] Last Admin: 09/27/19 05:56 Dose: Not Given Documented by: Timolol Maleate (Timoptic 0.5% Ophth Drops) 1 gtt OU DAILY [facility] Last Admin: 09/26/19 09:42 Dose: 1 drop Documented by: Vancomycin HCl (Vancomycin Per Pharmacy) 1 order IV UD [facility]; Protocol Vitamin D (Vitamin D3) 5,000 unit PO DAILY [facility] Last Admin: 09/26/19 08:33 Dose: 5,000 unit Documented by: Medical - PN: A/P - Time Spent With Patient Total time spent is greater than 50% in coordination of care (as documented) at patient's floor/unit and/or counseling patient: - Narrative A/P Narrative: Assessment: *Positive influenza: *PNA: -PCT increased but now improving; RVP neg -CT chest with ILD and effusions *Pleural effusions: -s/p Thora on Left of 300cc transudate by Light's *SIRS/Fevers: -leukocytosis improved; ESR/CRP improving -Fever curve improving *Acute hypoxic respiratory failure: -on 2L O2 90-99% -poor effort on IS *Chronic atrial fibrillation: on warfarin *s/p mitral valve replacement with 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 -long-term use of anticoagulant *Hypothyroidism: *HTN/HLD: On lisinopril at home *Anxiety: *GERD: Plan: -Tamiflu 75 mg twice daily for 5 days -Vanco/Cefepime started from previously Rocephin -pending SC/BC -O2 prn -IS/acapella -pt/ot -CM for placement -Pulmonology consult -f/u with pulmonology for sleep study -prophylaxis: warfarin per pharm CODE STATUS: Full Medical - PN: Qual - VTE Deep Vein Thrombosis/Pulmonary Embolism Present on Admission: No
[2019-09-27] MEDS: LEVOTHYROXINE 88 MCG TABLET PO SCH (07:50)
[2019-09-27] MEDS: OMEPRAZOLE 20 MG CAPSULE PO SCH (07:50)
[2019-09-27] MEDS: TIMOLOL 0.5% OPHTH DROPS BOTTLE 5ML OU SCH (07:54)
--- NOTE | 2019-09-27 08:27 | XRay Report ---
CLINICAL INFORMATION: f/u infiltrates, chronic interstitial dz COMPARISON: 09/26/2019 FINDINGS: Moderate cardiomegaly unchanged. Mediastinum is unremarkable. Moderate diffuse infiltrates have worsened from yesterday. They obscure the pulmonary vasculature which is, at least, mildly distended. Small bilateral pleural effusions noted IMPRESSION: Moderate worsening of diffuse infiltrates or edema Interpreted and Authenticated by: Addy Dobbins 09/27/19
[2019-09-27] MEDS ORDERED: FUROSEMIDE 40 MG/4 ML VIAL IV ONE (08:29)
[2019-09-27] MEDS ORDERED: ALBUMIN HUMAN 12.5 GM/50 ML BAG IV ONE (08:29)
[2019-09-27] MEDS: CALCIUM CARBONATE 500 MG TAB.CHEW PO SCH (08:47)
[2019-09-27] MEDS: BUTALB/ACETAMINOPHEN/CAFFEINE 1 TABLET PO SCH (08:47)
[2019-09-27] MEDS: ATORVASTATIN 20 MG TABLET PO SCH (08:47)
[2019-09-27] MEDS: POTASSIUM CHLORIDE 10 MEQ TABLET PO SCH (08:47)
[2019-09-27] MEDS: VITAMIN D3 5,000 UNIT CAPSULE PO SCH (08:47)
[2019-09-27] MEDS: OSELTAMIVIR PHOSPHATE 75 MG CAPSULE PO SCH (08:48)
[2019-09-27] MEDS ORDERED: FUROSEMIDE 40 MG TABLET PO SCH (09:00)
[2019-09-27 10:03] LABS: INR 1.3 (0.9-1.1); Prothrombin Time 16.4 sec (11.9-14.5)
[2019-09-27] MEDS: VANCOMYCIN 1,500 MG in 0.9 % SODIUM CHLORIDE 500 ML IV SCH (10:22)
[2019-09-27] MEDS: ENOXAPARIN 60 MG/0.6 ML SYRINGE SQ SCH (11:37)
[2019-09-27] MEDS ORDERED: WARFARIN 2 MG TABLET PO SCH (14:00)
--- NOTE | 2019-09-27 18:40 | Consultation ---
DATE OF CONSULTATION: 09/27/2019 HISTORY OF PRESENT ILLNESS: The patient is a very pleasant 84-year-old female who presented to the hospital approximately 7 days ago with febrile syndrome, thought initially to be due to influenza. Because of issues with recent viral concerns the patient has been cultured and now in isolation for the possibility of a SARS virus. The patient apparently had a protracted clinical course with a trip to the ER and a recent visit in the [facility], for what sounds like a cardioversion post transesophageal echo for atrial fibrillation. She does have a prosthetic valve in place. The patient indicates a normal childhood and well homemaker existence without dust or industrial exposures. She denies significant allergies. She denies known exposure to tuberculosis or previous PPD skin testing, perhaps remotely negative. She is not an allergic person. There are no unusual pets, plants, or birds in the home. No significant travel history. There is a history of dysphagia of liquids and gastroesophageal reflux disease. Review of her CT scan of the chest demonstrates significant bronchiectatic change and pulmonary fibrotic change as well as a dilated what would appear to be poorly functional esophagus. Family members are present in the hallways as well as her who add or provide some of the history above. The patient's white count on presentation was 14.7, hemoglobin 12.5, hematocrit 38 with an elevated glucose at 184. A normal basic metabolic survey is present. REVIEW OF SYSTEMS: Not revealing of other findings on detailed questioning. PHYSICAL EXAMINATION: GENERAL: A pleasant stated age appearing female, conversational, in no acute distress. HEENT: Head is atraumatic, normocephalic. NECK: Supple. Carotids are without apparent bruit. LUNGS: Decreased breath sounds throughout with interstitial crackles in the lower half of the lung novoa bilaterally. It is noted initially that her BNP is in the 2000 range. ABDOMEN: Soft. Bowel sounds are present. No apparent mass, bruit, or organomegaly. BONES, JOINTS, AND EXTREMITIES: Without acute changes. OTHER LABORATORY DATA: As noted above. The patient had a CT scan of the chest demonstrating significant abnormalities as discussed above. A thoracentesis was performed on a pleural effusion, which demonstrated findings consistent with a transudate with a low albumin and low LDH ratio. As noted above, BNP at 2000. IMPRESSION: Chronic pulmonary fibrotic bronchiectatic syndrome, likely on the basis of her reported dysphagia with liquids and/or reflux and aspiration. Recommend an antireflux regimen. Recommend culture of sputum to look for unusual organisms such as Aspergillus or Mycobacterium avium intracellulare. We would also screen with a QuantiFERON GOLD if not already performed. Recommend a panel of MORIAH, ANCA, RA, CCP, ESR, and CRP to evaluate the possibility of a rheumatologic insult leading to the process in the chest. Discussed with Dr. Johnson. Thank you for the opportunity to participate in the care of this very pleasant lady. KJP:hn Job ID: [id number] Doc ID: [id number] Marin CISNEROS
[2019-09-27] MEDS: LATANOPROST OPHTH DROPS 2.5ML BOTTLE OU SCH (20:06)
[2019-09-27] MEDS: LISINOPRIL 5 MG TABLET PO SCH (20:50)
[2019-09-27] MEDS: MELATONIN 3 MG TABLET PO SCH (20:50)
[2019-09-27] MEDS: ALPRAZolam 0.5 MG TABLET PO SCH (20:50)
[2019-09-27] MEDS: SENNOSIDES 1 TABLET PO SCH (20:50)
[2019-09-28] MEDS: IPRATROPIUM/ALBUTEROL 3 ML AMPUL.NEB NEB SCH ×6 (03:57→22:09)
[2019-09-28] MEDS: 0.9 % SODIUM CHLORIDE 10 ML SYRINGE IV SCH ×3 (03:59→21:21)
[2019-09-28] MEDS: LEVOTHYROXINE 88 MCG TABLET PO SCH (07:03)
[2019-09-28] MEDS: OMEPRAZOLE 20 MG CAPSULE PO SCH (07:03)
[2019-09-28] MEDS: ACETAMINOPHEN 325 MG TABLET PO PRN ×3 (07:05→21:20)
--- NOTE | 2019-09-28 07:37 | Internal Med Progress Note ---
Medical - PN: Subj Patient information: Note initiated : 09/28/19 at 7:32 am Service Date, if different from initiated Date: [] Patient: Ameena Ignacio a 84 y/o F admitted on 09/22/19 for here for chest x- ray. Chief Complaint: [] Interval history: Ms. Ignacio is a 84 year old F with a history of atrial fibrillation who presented to the ER because she has been having mild fever for days do not feel well for 2 days. As per patient, she has been having fever for days for which she went to the ER from medical record transcriber. She was discharged home with medications. She came back again because she does not feel well for 2 days. In the ER, she was found to have will mild fever and a positive positive influenza a and B. When I saw this patient in the ER, other than symptoms mentioned above, she also complains of malaise, fever and chills. Denied headache, dizziness, chest pain, shortness of breath, abdominal pain, nausea, vomiting, or diarrhea. No recent travel or sick contact. 09/22 Pt feels better. has mild sob. Denies fever/chills, headache, runny nose, or chest pain. 09/23 Pt feels fever and chills. She looks tired. temperature 99.3 this morning She is on 2 L White blood cells normalized today, 8.7 INR 3.0 Pre-calcitonin 0.58 09/24 She was lying in bed this morning when I saw her. I asked her "how are you feeling", she replied "I do not know". She no longer has fever. She is on RM during daytime. But she needs oxygen during night. Family mentioned she was desaturated during night at home. pt and family asked oxygen eval and would like to discuss where she should be discharged to 09/25 Poor sleep because of interruptions last night., She is tired. She has a cough but not producing sputum. Denies shortness of breath at rest. Family bedside. Fever last night. Good urine output last night. Discussion with family patient has been having fever for almost 3 weeks since primarily at night. She was seen at [facility] few weeks ago for atrial fibrillation with rapid ventricular rate and was cardioverted sounds like. She follows with [facility]. Further the records obtained: She had a transthoracic echocardiogram August appointment and then she had a transesophageal echocardiogram on September 15 for the cardioversion. EF 50% on MELISSA, RV mildly reduced fxn, Mechanical MV in mitral position, 09/26 Patient more alert this morning. Slept a little bit better last night. Denies any cough or shortness of breath. Decreased oxygenation. Calcitonin/ESR/CRP all improved today. I asked Dr. Carrera to see the patient given what appears to be underlying interstitial lung disease. Delving into the patients recent history prior to hospitalization and current fever spikes, which are now improving, but also the RVP showing no influenza even though the rapid ED test was positive along with other clinical findings and her picture as a whole, we will test her for COVID-19. 09/27 She slipped she slept well last night. T-max was 100.5 on only 1 reading. Is on room air during the day and 1 L at night. While speaking to her she was satting 97% on 0.5 L. Gradual improvement. Review of Systems: denies headache/chills/nausea/vomiting/chest or abdominal pain/diarrhea. Otherwise see above. - Constitutional Vitals: Vital Signs Temp Pulse Resp BP Pulse Ox 100.5 F H 92 H 18 130/72 95 09/28/19 07:05 09/28/19 07:12 09/28/19 07:12 09/28/19 06:40 09/28/19 07:14 Period Temp Pulse Resp BP Sys/Rogers Pulse Ox Last 24 Hr 97.1 F-100.5 F 66-93 16-22 108-130/50-72 93-99 Intake and Output 09/27/19 09/28/19 09/28/19 21:59 05:59 13:59 Intake Total 1320 150 Output Total 730 350 Balance 590 -200 Weight 63.004 kg Intake & Output: Intake & Output 09/27/19 09/28/19 09/28/19 21:59 05:59 13:59 Intake Total 1320 150 Output Total 730 350 Balance 590 -200 Weight 63.004 kg Intake: Oral 820 150 GI Tube Flush 500 Output: Void Amount 730 350 Other: Meal Nourishment/Supplement Percent of Meal Consumed 75% Feeding Ability Independent Urine Color Light Tanya Exam: General: Alert, Awake, No acute Distress Eyes/N/T: EOMI, Head/Neck: neck supple, CV: irreg, No murmurs, Pulm: mild rhonchi right base otherwise clear, no wheezing Abd: soft, nontender, +BS x4 Ext: no clubbing/cyanosis, trace-1+ b/l LE edema Neuro: Alert, no focal deficits, moves all extremities, Skin: warm/dry Medical - PN: Obj Da - Labs CBC & Chem 7: 09/27/19 05:38 09/28/19 06:31 Labs: Abnormal Lab Results 09/27/19 09/27/19 09/27/19 09:19 05:38 05:38 RBC 3.27 L Hgb 9.9 L Hct 30.3 L RDW 15.5 H Lymph % (Auto) 9.6 L Eos % (Auto) 7.6 H Lymph # (Auto) 1.02 L Hemphill # (Auto) Eos # (Auto) 0.81 H ESR PT 16.4 H INR 1.3 H Chloride Glucose GGT 131 H AST 47 H Lactate Dehydrogenase 475 H C-Reactive Protein Albumin 3.1 L Albumin/Globulin Ratio 09/26/19 09/26/19 09/26/19 06:06 06:06 06:06 RBC Hgb Hct RDW Lymph % (Auto) Eos % (Auto) Lymph # (Auto) Hemphill # (Auto) Eos # (Auto) ESR 39 H PT INR Chloride Glucose 108 H GGT 96 H AST 43 H Lactate Dehydrogenase 483 H C-Reactive Protein 9.5 H Albumin 3.1 L Albumin/Globulin Ratio 09/25/19 09/25/19 09/25/19 06:44 06:44 06:44 RBC 3.25 L Hgb 9.6 L Hct 30.1 L RDW 15.0 H Lymph % (Auto) 13.1 L Eos % (Auto) Lymph # (Auto) 1.19 L Hemphill # (Auto) 0.93 H Eos # (Auto) ESR PT 25.5 H INR 2.3 H Chloride 111 H Glucose 112 H GGT AST 39 H Lactate Dehydrogenase C-Reactive Protein Albumin 2.7 L Albumin/Globulin Ratio 0.8 L Meds: Medications Acetaminophen (Tylenol) 650 mg PO Q6HP PRN; Protocol PRN Reason: Per Pain Protocol/Fever > 101 Last Admin: 09/28/19 07:05 Dose: 650 mg Documented by: Acetaminophen/Butalbital/Caffeine (Fioricet) 1 tab PO DAILY [facility] Last Admin: 09/27/19 08:47 Dose: 1 tab Documented by: Albuterol/Ipratropium (Duoneb) 3 ml NEB Q4HRT [facility] Last Admin: 09/28/19 07:11 Dose: 3 ml Documented by: Alprazolam (Xanax) 0.5 mg PO [facility] Last Admin: 09/27/19 20:50 Dose: 0.5 mg Documented by: Atorvastatin Calcium (Lipitor) 20 mg PO DAILY [facility] Last Admin: 09/27/19 08:47 Dose: 20 mg Documented by: Calcium Carbonate/Glycine (Tums) 500 mg PO DAILY [facility] Last Admin: 09/27/19 08:47 Dose: 500 mg Documented by: Cefepime HCl (Maxipime) 2 gm IV Q12H [facility]; Protocol Last Admin: 09/27/19 21:10 Dose: 2 gm Documented by: Enoxaparin Sodium (Lovenox) 60 mg SQ DAILY [facility] Last Admin: 09/27/19 11:37 Dose: 60 mg Documented by: Vancomycin HCl 1,500 mg/ (Sodium Chloride) 500 mls @ 333.3 mls/hr IV Q24H [facility] Last Infusion: 09/27/19 11:53 Dose: Infused Documented by: Latanoprost (Xalatan Ophth Drops) 1 gtt OU [facility] Last Admin: 09/27/19 20:06 Dose: 1 gtt Documented by: Levothyroxine Sodium (Synthroid) 88 mcg PO [facility] Last Admin: 09/28/19 07:03 Dose: 88 mcg Documented by: Lisinopril (Zestril) 2.5 mg PO [facility] Last Admin: 09/27/19 20:50 Dose: 2.5 mg Documented by: Melatonin (Melatonin 3mg Tablet) 3 mg PO QHS [facility] Last Admin: 09/27/19 20:50 Dose: 3 mg Documented by: [facility]) [facility] Last Admin: 09/28/19 07:03 Dose: 20 mg Documented by: Ondansetron HCl (Zofran) 2 mg IV Q6HP PRN PRN Reason: Nausea And Vomiting Potassium Ch[facility] ([facility]ur) [facility] Last Admin: 09/27/19 08:47 Dose: 10 meq Documented by: Senna (Senokot) 2 tab PO HS [facility] Last Admin: 09/27/19 20:50 Dose: 2 tab Documented by: Sodium Chloride (Saline Flush) 10 ml IV Q8 [facility] Last Admin: 09/28/19 03:59 Dose: 10 ml Documented by: Timolol Maleate (Timoptic 0.5% Ophth Drops) 1 gtt OU DAILY [facility] Last Admin: 09/27/19 07:54 Dose: 1 drop Documented by: Vancomycin HCl (Vancomycin Per Pharmacy) 1 order IV UD [facility]; Protocol Vitamin D (Vitamin D3) 5,000 unit PO DAILY [facility] Last Admin: 09/27/19 08:47 Dose: 5,000 unit Documented by: Warfarin Sodium (Coumadin Per Pharmacy) 1 order PO DAILY@1400 [facility] Last Admin: 09/27/19 15:32 Dose: 1 order Documented by: Medical - PN: A/P - Time Spent With Patient Total time spent is greater than 50% in coordination of care (as documented) at patient's floor/unit and/or counseling patient: - Narrative A/P Narrative: *initial rapid Flu screen in ED was (+), but later RVP was negative: -did receive a course of tamiflu *PNA: suspect viral with subsequent bacterial -PCT increased but now improving; RVP neg -CT chest with ILD and effusions *Pleural effusions: -s/p Thora on Left of 300cc transudate by Light's *SIRS/Fevers: -leukocytosis improved; ESR/CRP/PCT improving -Fever curve improving -BC neg *Acute hypoxic respiratory failure: -on 1L with O2 mid-high 90's -poor effort on IS *Suspect Dysphagia: possible chronic/silent aspiration *Chronic atrial fibrillation: on warfarin *s/p mitral valve replacement with 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 -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
[2019-09-28 08:06] LABS: ALT/SGPT 32 U/l (0-40); AST/SGOT 37 U/l (0-37); Albumin 3.4 gm/dL (3.2-5.2); Alkaline Phosphatase 116 U/L (39-117); Bilirubin,Total 0.5 mg/dL (0.0-1.0); Blood Urea Nitrogen 21 mg/dl (8-23); Calcium 9.4 mg/dl (8.6-10.4); Carbon Dioxide 31 mmol/L (22-30); Globulin 3.5 gm/dL (2.2-3.7); Glomerular Filtration Rate 58; Glucose 101 mg/dL (70-105); Lactate Dehydrogenase 464 U/L (94-250); Phosphorous 3.2 mg/dL (2.7-4.5); Triglycerides 108 mg/dl (<150); Uric Acid 7.1 mg/dL (2.5-8.0)
[2019-09-28 08:12] LABS: Bilirubin,Direct < 0.2 mg/dL (0.0-0.3); Chloride 94 mmol/L (96-108)
[2019-09-28 08:17] LABS: INR 1.2 (0.9-1.1); Prothrombin Time 15.8 sec (11.9-14.5)
[2019-09-28] MEDS: VITAMIN D3 5,000 UNIT CAPSULE PO SCH (08:23)
[2019-09-28] MEDS: ATORVASTATIN 20 MG TABLET PO SCH (08:23)
[2019-09-28] MEDS: TIMOLOL 0.5% OPHTH DROPS BOTTLE 5ML OU SCH (08:24)
[2019-09-28] MEDS: ENOXAPARIN 60 MG/0.6 ML SYRINGE SQ SCH (08:24)
[2019-09-28] MEDS: BUTALB/ACETAMINOPHEN/CAFFEINE 1 TABLET PO SCH (08:24)
[2019-09-28] MEDS: CALCIUM CARBONATE 500 MG TAB.CHEW PO SCH (08:24)
[2019-09-28] MEDS: POTASSIUM CHLORIDE 10 MEQ TABLET PO SCH (08:24)
[2019-09-28] MEDS: CEFEPIME 2 GM VIAL IV SCH ×2 (08:42→21:18)
[2019-09-28] MEDS: VANCOMYCIN 1,500 MG in 0.9 % SODIUM CHLORIDE 500 ML IV SCH (10:48)
[2019-09-28] MEDS ORDERED: WARFARIN 2 MG TABLET PO SCH (14:00)
[2019-09-28] MEDS: ALPRAZolam 0.5 MG TABLET PO SCH (21:19)
[2019-09-28] MEDS: MELATONIN 3 MG TABLET PO SCH (21:19)
[2019-09-28] MEDS: LISINOPRIL 5 MG TABLET PO SCH (21:19)
[2019-09-28] MEDS: SENNOSIDES 1 TABLET PO SCH (21:20)
[2019-09-28] MEDS: LATANOPROST OPHTH DROPS 2.5ML BOTTLE OU SCH (21:21)
[2019-09-29] MEDS: IPRATROPIUM/ALBUTEROL 3 ML AMPUL.NEB NEB SCH ×3 (03:46→11:00)
[2019-09-29] MEDS: ACETAMINOPHEN 325 MG TABLET PO PRN ×2 (04:30→20:47)
[2019-09-29] MEDS: 0.9 % SODIUM CHLORIDE 10 ML SYRINGE IV SCH ×3 (05:42→20:28)
[2019-09-29 06:43] LABS: INR 1.3 (0.9-1.1); Prothrombin Time 16.9 sec (11.9-14.5)
[2019-09-29] MEDS: OMEPRAZOLE 20 MG CAPSULE PO SCH (07:52)
[2019-09-29] MEDS: LEVOTHYROXINE 88 MCG TABLET PO SCH (07:52)
--- NOTE | 2019-09-29 08:14 | Internal Med Progress Note ---
Medical - PN: Subj Patient information: Note initiated : 09/29/19 at 8:09 am Service Date, if different from initiated Date: [] Patient: Ameena Ignacio a 84 y/o F admitted on 09/22/19 for here for chest x- ray. Chief Complaint: [] Interval history: Ms. Ignacio is a 84 year old F with a history of atrial fibrillation who presented to the ER because she has been having mild fever for days do not feel well for 2 days. 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 She was discharged home with medications. She came back again because she does not feel well for 2 days. In the ER, she was found to have will mild fever and a positive positive influenza a and B. When I saw this patient in the ER, other than symptoms mentioned above, she also complains of malaise, fever and chills. Denied headache, dizziness, chest pain, shortness of breath, abdominal pain, nausea, vomiting, or diarrhea. No recent travel or sick contact. 09/22 Pt feels better. has mild sob. Denies fever/chills, headache, runny nose, or chest pain. 09/23 Pt feels fever and chills. She looks tired. temperature 99.3 this morning She is on 2 L White blood cells normalized today, 8.7 INR 3.0 Pre-calcitonin 0.58 09/24 She was lying in bed this morning when I saw her. I asked her "how are you feeling", she replied "I do not know". She no longer has fever. She is on RM during daytime. But she needs oxygen during night. Family mentioned she was desaturated during night at home. pt and family asked oxygen eval and would like to discuss where she should be discharged to 09/25 Poor sleep because of interruptions last night., She is tired. She has a cough but not producing sputum. Denies shortness of breath at rest. Family bedside. Fever last night. Good urine output last night. Discussion with family patient has been having fever for almost 3 weeks since primarily at night. She was seen at [facility] few weeks ago for atrial fibrillation with rapid ventricular rate and was cardioverted sounds like. She follows with [facility]. Further the records obtained: She had a transthoracic echocardiogram August appointment and then she had a transesophageal echocardiogram on September 15 for the cardioversion. EF 50% on MELISSA, RV mildly reduced fxn, Mechanical MV in mitral position, 09/26 Patient more alert this morning. Slept a little bit better last night. Denies any cough or shortness of breath. Decreased oxygenation. Calcitonin/ESR/CRP all improved today. I asked Dr. Carrera to see the patient given what appears to be underlying interstitial lung disease. Delving into the patients recent history prior to hospitalization and current fever spikes, which are now improving, but also the RVP showing no influenza even though the rapid ED test was positive along with other clinical findings and her picture as a whole, we will test her for COVID-19. 09/27 She slipped she slept well last night. T-max was 100.5 on only 1 reading. Is on room air during the day and 1 L at night. While speaking to her she was satting 97% on 0.5 L. Gradual improvement. 09/28 Patient sitting up in chair undergoing breathing treatment. Afebrile last night. Patient appears to be feeling better with more energetic. Occasional cough, denies shortness of breath. Family present. Review of Systems: denies headache/chills/nausea/vomiting/chest or abdominal pain/diarrhea. Otherwise see above. - Constitutional Vitals: Vital Signs Temp Pulse Resp BP Pulse Ox 98.4 F 82 20 116/59 93 09/29/19 07:07 09/29/19 07:07 09/29/19 07:07 09/29/19 07:07 09/29/19 07:07 Period Temp Pulse Resp BP Sys/Rogers Pulse Ox Last 24 Hr 96.4 F-99.6 F 70-87 16-20 98-116/59-68 93-98 Intake and Output 09/28/19 09/29/19 09/29/19 21:59 05:59 13:59 Intake Total 50 Output Total 400 Balance -350 Weight 65.091 kg Intake & Output: Intake & Output 09/28/19 09/29/19 09/29/19 21:59 05:59 13:59 Intake Total 50 Output Total 400 Balance -350 Weight 65.091 kg Intake: IV 50 Output: Void Amount 400 Other: Urine Color Pale # Voids 1 1 Exam: General: Alert, Awake, No acute Distress Eyes/N/T: EOMI, Head/Neck: neck supple, CV: irreg, 2/6 SM, Pulm: minimal left base rhonchi right base otherwise clear, no wheezing Abd: soft, nontender, +BS x4 Ext: no clubbing/cyanosis, trace-1+ b/l LE edema Neuro: Alert, no focal deficits, moves all extremities, Skin: warm/dry Medical - PN: Obj Da - Labs CBC & Chem 7: 09/27/19 05:38 09/28/19 06:31 Labs: Abnormal Lab Results 09/29/19 09/28/19 09/28/19 05:49 06:31 06:31 RBC Hgb Hct RDW Lymph % (Auto) Eos % (Auto) Lymph # (Auto) Eos # (Auto) ESR PT 16.9 H 15.8 H INR 1.3 H 1.2 H Chloride 94 L Carbon Dioxide 31 H Glucose GGT 128 H AST Lactate Dehydrogenase 464 H C-Reactive Protein Albumin 09/27/19 09/27/19 09/27/19 09:19 05:38 05:38 RBC 3.27 L Hgb 9.9 L Hct 30.3 L RDW 15.5 H Lymph % (Auto) 9.6 L Eos % (Auto) 7.6 H Lymph # (Auto) 1.02 L Eos # (Auto) 0.81 H ESR PT 16.4 H INR 1.3 H Chloride Carbon Dioxide Glucose GGT 131 H AST 47 H Lactate Dehydrogenase 475 H C-Reactive Protein Albumin 3.1 L 09/26/19 09/26/19 09/26/19 06:06 06:06 06:06 RBC Hgb Hct RDW Lymph % (Auto) Eos % (Auto) Lymph # (Auto) Eos # (Auto) ESR 39 H PT INR Chloride Carbon Dioxide Glucose 108 H GGT 96 H AST 43 H Lactate Dehydrogenase 483 H C-Reactive Protein 9.5 H Albumin 3.1 L Meds: Medications Acetaminophen (Tylenol) 650 mg PO Q6HP PRN; Protocol PRN Reason: Per Pain Protocol/Fever > 101 Last Admin: 09/29/19 04:30 Dose: 650 mg Documented by: Acetaminophen/Butalbital/Caffeine (Fioricet) 1 tab PO DAILY [facility] Last Admin: 09/28/19 08:24 Dose: 1 tab Documented by: Albuterol/Ipratropium (Duoneb) 3 ml NEB Q4HRT [facility] Last Admin: 09/29/19 03:46 Dose: 3 ml Documented by: Alprazolam (Xanax) 0.5 mg PO [facility] Last Admin: 09/28/19 21:19 Dose: 0.5 mg Documented by: Atorvastatin Calcium (Lipitor) 20 mg PO DAILY [facility] Last Admin: 09/28/19 08:23 Dose: 20 mg Documented by: Calcium Carbonate/Glycine (Tums) 500 mg PO DAILY [facility] Last Admin: 09/28/19 08:24 Dose: 500 mg Documented by: Cefepime HCl (Maxipime) 2 gm IV Q12H [facility]; Protocol Last Admin: 09/28/19 21:18 Dose: 2 gm Documented by: Enoxaparin Sodium (Lovenox) 60 mg SQ DAILY [facility] Last Admin: 09/28/19 08:24 Dose: 60 mg Documented by: Vancomycin HCl 1,500 mg/ (Sodium Chloride) 500 mls @ 333.3 mls/hr IV Q24H [facility] Last Infusion: 09/28/19 12:36 Dose: Infused Documented by: Latanoprost (Xalatan Ophth Drops) 1 gtt [address] [facility] Last Admin: 09/28/19 21:21 Dose: 1 gtt Documented by: Levothyroxine Sodium (Synthroid) 88 mcg PO [facility] Last Admin: 09/29/19 07:52 Dose: 88 mcg Documented by: Lisinopril (Zestril) 2.5 [address] [facility] Last Admin: 09/28/19 21:19 Dose: 2.5 mg Documented by: Melatonin (Melatonin 3mg Tablet) [facility] Last Admin: 09/28/19 21:19 Dose: 3 mg Documented by: [facility]) [facility] Last Admin: 09/29/19 07:52 Dose: 20 mg Documented by: Ondansetron HCl (Zofran) 2 mg IV Q6HP PRN PRN Reason: Nausea And Vomiting Potassium Ch[facility]ide ([facility]ur) [facility] Last Admin: 09/28/19 08:24 Dose: 10 meq Documented by: Senna (Senokot) 2 tab PO [facility] Last Admin: 09/28/19 21:20 Dose: 2 tab Documented by: Sodium Chloride (Saline Flush) 10 ml IV Q8 [facility] Last Admin: 09/29/19 05:42 Dose: 10 ml Documented by: Timolol Maleate (Timoptic 0.5% Ophth Drops) 1 gtt OU DAILY [facility] Last Admin: 09/28/19 08:24 Dose: 1 drop Documented by: Vancomycin HCl (Vancomycin Per Pharmacy) 1 order IV UD [facility]; Protocol Vitamin D (Vitamin D3) 5,000 unit PO DAILY [facility] Last Admin: 09/28/19 08:23 Dose: 5,000 unit Documented by: Warfarin Sodium (Coumadin Per Pharmacy) 1 order PO DAILY@1400 [facility] Last Admin: 09/28/19 13:31 Dose: 1 order Documented by: Warfarin Sodium (Coumadin) 4 mg PO TODAY@1400 [facility] Stop: 09/29/19 16:00 Medical - PN: A/P - Time Spent With Patient Total time spent is greater than 50% in coordination of care (as documented) at patient's floor/unit and/or counseling patient: - Narrative A/P Narrative: *initial rapid Flu screen in ED was (+), but later RVP done which was negative: -did receive a course of tamiflu *PNA: suspect viral with subsequent bacterial -PCT increased but now improved; RVP neg -CT chest with ILD and effusions *Pleural effusions: -s/p Thora on Left of 300cc transudate by Light's *SIRS/Fevers: -leukocytosis improved; ESR/CRP/PCT improving -Fever curve much improved -BC neg *Acute hypoxic respiratory failure: -on 1L with O2 mid-high 90's -poor effort on IS *Moderate Oropharyngeal Dysphagia: *Chronic atrial fibrillation: on warfarin *s/p mitral valve replacement with 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 -[facility] use of anticoagulant *Hypothyroidism: *HTN/HLD: On lisinopril at home *Anxiety: *GERD: Plan: -Vanco(d/c)/Cefepime -unable to get sputum sample -O2 prn -IS/acapella -modified barium swallow next week. diet per ST, following -pt/ot -CM for placement -Pulmonology consulted -f/u with pulmonology for sleep study -prophylaxis: warfarin per pharm (lovenox bid until therapeutic) Medical - PN: Qual - VTE Deep Vein Thrombosis/Pulmonary Embolism Present on Admission: No
[2019-09-29] MEDS: POTASSIUM CHLORIDE 10 MEQ TABLET PO SCH (09:06)
[2019-09-29] MEDS: CALCIUM CARBONATE 500 MG TAB.CHEW PO SCH (09:06)
[2019-09-29] MEDS: VITAMIN D3 5,000 UNIT CAPSULE PO SCH (09:06)
[2019-09-29] MEDS: CEFEPIME 2 GM VIAL IV SCH ×2 (09:06→20:29)
[2019-09-29] MEDS: TIMOLOL 0.5% OPHTH DROPS BOTTLE 5ML OU SCH (09:06)
[2019-09-29] MEDS: ATORVASTATIN 20 MG TABLET PO SCH (09:06)
[2019-09-29] MEDS: BUTALB/ACETAMINOPHEN/CAFFEINE 1 TABLET PO SCH (09:07)
[2019-09-29] MEDS: ENOXAPARIN 60 MG/0.6 ML SYRINGE SQ SCH ×2 (09:08→20:28)
[2019-09-29] MEDS ORDERED: IPRATROPIUM/ALBUTEROL 3 ML AMPUL.NEB NEB PRN (13:31)
[2019-09-29] MEDS ORDERED: WARFARIN 2 MG TABLET PO SCH (14:00)
[2019-09-29] MEDS: LISINOPRIL 5 MG TABLET PO SCH (20:28)
[2019-09-29] MEDS: ALPRAZolam 0.5 MG TABLET PO SCH (20:28)
[2019-09-29] MEDS: MELATONIN 3 MG TABLET PO SCH (20:28)
[2019-09-29] MEDS: SENNOSIDES 1 TABLET PO SCH (20:29)
[2019-09-29] MEDS: LATANOPROST OPHTH DROPS 2.5ML BOTTLE OU SCH (20:29)
[2019-09-30] MEDS: ACETAMINOPHEN 325 MG TABLET PO PRN ×2 (04:19→17:03)
[2019-09-30] MEDS: 0.9 % SODIUM CHLORIDE 10 ML SYRINGE IV SCH ×3 (06:12→20:36)
[2019-09-30 06:45] LABS: INR 1.5 (0.9-1.1); Prothrombin Time 18.6 sec (11.9-14.5)
[2019-09-30] MEDS: POTASSIUM CHLORIDE 10 MEQ TABLET PO SCH (07:25)
[2019-09-30] MEDS: LEVOTHYROXINE 88 MCG TABLET PO SCH (07:25)
[2019-09-30] MEDS: OMEPRAZOLE 20 MG CAPSULE PO SCH (07:25)
--- NOTE | 2019-09-30 08:12 | Internal Med Progress Note ---
Medical - PN: Subj Patient information: Note initiated : 09/30/19 at 8:11 am Service Date, if different from initiated Date: [] Patient: Ameena Ignacio a 84 y/o F admitted on 09/22/19 for here for chest x- ray. Chief Complaint: [] Interval history: Ms. Ignacio is a 84 year old F with a history of atrial fibrillation who presented to the ER because she has been having mild fever for days do not feel well for 2 days. 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 She was discharged home with medications. She came back again because she does not feel well for 2 days. In the ER, she was found to have will mild fever and a positive positive influenza a and B. When I saw this patient in the ER, other than symptoms mentioned above, she also complains of malaise, fever and chills. Denied headache, dizziness, chest pain, shortness of breath, abdominal pain, nausea, vomiting, or diarrhea. No recent travel or sick contact. 09/22 Pt feels better. has mild sob. Denies fever/chills, headache, runny nose, or chest pain. 09/23 Pt feels fever and chills. She looks tired. temperature 99.3 this morning She is on 2 L White blood cells normalized today, 8.7 INR 3.0 Pre-calcitonin 0.58 09/24 She was lying in bed this morning when I saw her. I asked her "how are you feeling", she replied "I do not know". She no longer has fever. She is on RM during daytime. But she needs oxygen during night. Family mentioned she was desaturated during night at home. pt and family asked oxygen eval and would like to discuss where she should be discharged to 09/25 Poor sleep because of interruptions last night., She is tired. She has a cough but not producing sputum. Denies shortness of breath at rest. Family bedside. Fever last night. Good urine output last night. Discussion with family patient has been having fever for almost 3 weeks since primarily at night. She was seen at [facility] few weeks ago for atrial fibrillation with rapid ventricular rate and was cardioverted sounds like. She follows with [facility]. Further the records obtained: She had a transthoracic echocardiogram August appointment and then she had a transesophageal echocardiogram on September 15 for the cardioversion. EF 50% on MELISSA, RV mildly reduced fxn, Mechanical MV in mitral position, 09/26 Patient more alert this morning. Slept a little bit better last night. Denies any cough or shortness of breath. Decreased oxygenation. Calcitonin/ESR/CRP all improved today. I asked Dr. Carrera to see the patient given what appears to be underlying interstitial lung disease. Delving into the patients recent history prior to hospitalization and current fever spikes, which are now improving, but also the RVP showing no influenza even though the rapid ED test was positive along with other clinical findings and her picture as a whole, we will test her for COVID-19. 09/27 She slipped she slept well last night. T-max was 100.5 on only 1 reading. Is on room air during the day and 1 L at night. While speaking to her she was satting 97% on 0.5 L. Gradual improvement. 09/28 Patient sitting up in chair undergoing breathing treatment. Afebrile last night. Patient appears to be feeling better with more energetic. Occasional cough, denies shortness of breath. Family present. 09/29 Slept well. Occasional cough. Does not notice any shortness of breath. Afebrile again last night. Awaiting coronavirus test and likely placement to SNF tomorrow. Review of Systems: denies headache/chills/nausea/vomiting/chest or abdominal pain/diarrhea. Otherwise see above. - Constitutional Vitals: Vital Signs Temp Pulse Resp BP Pulse Ox 98.4 F 72 17 120/82 96 09/30/19 04:00 09/30/19 04:00 09/30/19 04:00 09/30/19 04:00 09/30/19 04:00 Period Temp Pulse Resp BP Sys/Rogers Pulse Ox Last 24 Hr 96.5 F-99.5 F 72-87 17-22 110-120/60-82 93-97 Intake and Output 09/29/19 09/30/19 09/30/19 21:59 05:59 13:59 Intake Total 200 Balance 200 Weight 64.864 kg Intake & Output: Intake & Output 09/29/19 09/30/19 09/30/19 21:59 05:59 13:59 Intake Total 200 Balance 200 Weight 64.864 kg Intake: Oral 200 Other: Urine Appearance Clear Urine Color Bright Yellow Urine Odor Normal Stool Size Moderate Stool Color Brown Stool Consistency Soft # Voids 1 1 # Bowel Movements 1 Exam: General: Alert, Awake, No acute Distress Eyes/N/T: EOMI, Head/Neck: neck supple, CV: irreg, 2/6 SM, Pulm: minimal left base rhonchi right base otherwise clear, no wheezing Abd: soft, nontender, +BS x4 Ext: no clubbing/cyanosis, trace b/l LE edema Neuro: Alert, no focal deficits, moves all extremities, Skin: warm/dry Medical - PN: Obj Da - Labs CBC & Chem 7: 09/27/19 05:38 09/28/19 06:31 Labs: Abnormal Lab Results 09/30/19 09/29/19 09/28/19 05:33 05:49 06:31 PT 18.6 H 16.9 H 15.8 H INR 1.5 H 1.3 H 1.2 H Chloride Carbon Dioxide GGT Lactate Dehydrogenase 09/28/19 09/27/19 06:31 09:19 PT 16.4 H INR 1.3 H Chloride 94 L Carbon Dioxide 31 H GGT 128 H Lactate Dehydrogenase 464 H Meds: Medications Acetaminophen (Tylenol) 650 mg PO Q6HP PRN; Protocol PRN Reason: Per Pain Protocol/Fever > 101 Last Admin: 09/30/19 04:19 Dose: 650 mg Documented by: Acetaminophen/Butalbital/Caffeine (Fioricet) 1 tab PO DAILY [facility] Last Admin: 09/29/19 09:07 Dose: 1 tab Documented by: Albuterol/Ipratropium (Duoneb) 3 ml NEB Q4HP PRN PRN Reason: Shortness Of Breath Or Wheezing Alprazolam (Xanax) 0.5 mg PO HS [facility] Last Admin: 09/29/19 20:28 Dose: 0.5 mg Documented by: Atorvastatin Calcium (Lipitor) 20 mg PO DAILY [facility] Last Admin: 09/29/19 09:06 Dose: 20 mg Documented by: Calcium Carbonate/Glycine (Tums) 500 mg PO DAILY [facility] Last Admin: 09/29/19 09:06 Dose: 500 mg Documented by: Cefepime HCl (Maxipime) 2 gm IV Q12H [facility]; Protocol Last Admin: 09/29/19 20:29 Dose: 2 gm Documented by: Enoxaparin Sodium (Lovenox) 60 mg SQ BID [facility] Last Admin: 09/29/19 20:28 Dose: 60 mg Documented by: Latanoprost (Xalatan Ophth Drops) 1 gtt OU [facility] Last Admin: 09/29/19 20:29 Dose: 1 gtt Documented by: Levothyroxine Sodium (Synthroid) 88 mcg PO [facility] Last Admin: 09/30/19 07:25 Dose: 88 mcg Documented by: Lisinopril (Zestril) 2.5 mg PO [facility] Last Admin: 09/29/19 20:28 Dose: 2.5 mg Documented by: Melatonin (Melatonin 3mg Tablet) [facility] Last Admin: 09/29/19 20:28 Dose: 3 mg Documented by: Omeprazole (Prilosec) 20 mg PO [facility] Last Admin: 09/30/19 07:25 Dose: 20 mg Documented by: Ondansetron HCl (Zofran) 2 mg IV Q6HP PRN PRN Reason: Nausea And Vomiting Potassium Ch[facility] (Kdur) [facility] Admin: 09/30/19 07:25 Dose: 10 meq Documented by: Senna (Senokot) 2 tab PO [facility] Last Admin: 09/29/19 20:29 Dose: Not Given Documented by: Sodium Chloride (Saline Flush) 10 ml IV Q8 [facility] Last Admin: 09/30/19 06:12 Dose: Not Given Documented by: Timolol Maleate (Timoptic 0.5% Ophth Drops) 1 gtt OU DAILY [facility] Last Admin: 09/29/19 09:06 Dose: 1 drop Documented by: Vitamin D (Vitamin D3) 5,000 unit PO DAILY [facility] Last Admin: 09/29/19 09:06 Dose: 5,000 unit Documented by: Warfarin Sodium (Coumadin Per Pharmacy) 1 order PO DAILY@1400 [facility] Last Admin: 09/29/19 15:17 Dose: 1 order Documented by: Warfarin Sodium (Coumadin) 4 mg PO TODAY@1400 [facility] Stop: 09/30/19 16:00 Medical - PN: A/P - Time Spent With Patient Total time spent is greater than 50% in coordination of care (as documented) at patient's floor/unit and/or counseling patient: - Narrative A/P Narrative: *initial rapid Flu screen in ED was (+), but later RVP done which was negative: -did receive a course of tamiflu *PNA: suspect viral with subsequent bacterial -PCT increased but now improved; RVP neg -CT chest with ILD and effusions *Pleural effusions: -s/p Thora on Left of 300cc transudate by Light's *SIRS/Fevers: -leukocytosis improved; ESR/CRP/PCT improving -Fever curve much improved -BC neg *Acute hypoxic respiratory failure: -on 0.5L NC@night, otherwise room air during day -poor effort on IS *Moderate Oropharyngeal Dysphagia: *Chronic atrial fibrillation: on warfarin *s/p mitral valve replacement with 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 -[facility] use of anticoagulant *Hypothyroidism: *HTN/HLD: On lisinopril at home *Anxiety: *GERD: Plan: -Cefepime d/c soon -unable to get sputum sample -O2 prn -IS/acapella -modified barium swallow possible next week. diet per , -pt/ot -CM for placement -Pulmonology consulted -f/u with pulmonology for sleep study -prophylaxis: warfarin per pharm (lovenox bid until therapeutic) Medical - PN: Qual - VTE Deep Vein Thrombosis/Pulmonary Embolism Present on Admission: No
--- NOTE | 2019-09-30 08:52 | Discharge Summary ---
Medical - DS: Prov Patient information: Note initiated : 09/30/19 at 8:50 am Service Date, if different from initiated Date: [] Patient: Ameena Ignacio 84 y/o F admitted on 09/22/19 for here for chest x- ray. Chief Complaint: [] Date of admission: 09/22/19 16:48 Discharge date: 10/01/19 Primary care physician: Rashard Abdi Consults: 09/22/19 Consult to Physician [CONS] Stat Comment: Consulting Provider: Radha Jimenez Reason For Exam: Physician to Consult 09/24/19 10:57 Consult to Physician [CONS] Routine Comment: Consulting Provider: Addy Suarez Reason For Exam: Physician to Consult 09/26/19 19:21 Consult to Physician [CONS] Routine Comment: appears to have ILD Consulting Provider: Marin Carrera Reason For Exam: Physician to Consult Medical - DS: Meds - Discharge Medications Prescriptions: Enoxaparin [Lovenox] 60 mg SQ BID #4 syringe Transmission Status: Pending to [facility] and Home Medications: Home Medications ALPRAZolam [Xanax] 0.5 mg PO HS 09/22/19 [History Confirmed 09/22/19 Last Taken Unknown] Acetaminophen [Acetaminophen Extra Strength] 1,000 mg PO DAILY 09/22/19 [History Confirmed 09/22/19 Last Taken Unknown] Atorvastatin [Lipitor] 20 mg PO DAILY 09/22/19 [History Confirmed 09/22/19 Last Taken Unknown] Butalb/Acetaminophen/Caffeine [Cybkgx-Iihfjwbo-Ceai 50-325-40] 1 tab PO DAILY 09/22/19 [History Confirmed 09/22/19 Last Taken Unknown] Calcium Carbonate [Super Calcium] 600 mg PO DAILY 09/22/19 [History Confirmed 09/22/19 Last Taken Unknown] Docusate Sodium [Colace] 100 mg PO DAILY 09/22/19 [History Confirmed 09/22/19 Last Taken Unknown] Latanoprost/Pf [Latanoprost 0.005% Eye Drop] 1 drp .ROUTE DAILY 09/22/19 [History Confirmed 09/22/19 Last Taken Unknown] Levothyroxine Sodium [Levoxyl] 88 mcg PO DAILY 09/22/19 [History Confirmed 09/22/19 Last Taken Unknown] Lisinopril [Zestril] 2.5 mg PO HS 09/22/19 [History Confirmed 09/22/19 Last Taken Unknown] Omeprazole [PriLOSEC] 20 mg PO DAILY 09/22/19 [History Confirmed 09/22/19 Last Taken Unknown] Potassium Chloride [Kdur] 10 meq PO DAILY 09/22/19 [History Confirmed 09/22/19 Last Taken Unknown] Timolol [Betimol] 15 ml OP DAILY 09/22/19 [History Confirmed 09/22/19 Last Taken Unknown] Vitamin D3 5,000 unit PO DAILY 09/22/19 [History Confirmed 09/22/19 Last Taken Unknown] Warfarin Sodium [Jantoven] 2.5 mg PO DAILY 09/22/19 [History Confirmed 09/22/19 Last Taken Unknown] Home Medications ALPRAZolam [Xanax] 0.5 mg PO HS 09/22/19 [History Confirmed 09/22/19 Last Taken Unknown] Acetaminophen [Acetaminophen Extra Strength] 1,000 mg PO DAILY 09/22/19 [History Confirmed 09/22/19 Last Taken Unknown] Atorvastatin [Lipitor] 20 mg PO DAILY 09/22/19 [History Confirmed 09/22/19 Last Taken Unknown] Butalb/Acetaminophen/Caffeine [Ilwbth-Pzrdciug-Znoh 50-325-40] 1 tab PO DAILY 09/22/19 [History Confirmed 09/22/19 Last Taken Unknown] Calcium Carbonate [Super Calcium] 600 mg PO DAILY 09/22/19 [History Confirmed 09/22/19 Last Taken Unknown] Docusate Sodium [Colace] 100 mg PO DAILY 09/22/19 [History Confirmed 09/22/19 Last Taken Unknown] Latanoprost/Pf [Latanoprost 0.005% Eye Drop] 1 drp .ROUTE DAILY 09/22/19 [History Confirmed 09/22/19 Last Taken Unknown] Levothyroxine Sodium [Levoxyl] 88 mcg PO DAILY 09/22/19 [History Confirmed 09/22/19 Last Taken Unknown] Lisinopril [Zestril] 2.5 mg PO HS 09/22/19 [History Confirmed 09/22/19 Last Taken Unknown] Omeprazole [Prilosec] 20 mg PO DAILY 09/22/19 [History Confirmed 09/22/19 Last Taken Unknown] Potassium Chloride [Kdur] 10 meq PO DAILY 09/22/19 [History Confirmed 09/22/19 Last Taken Unknown] Timolol [Betimol] 15 ml OP DAILY 09/22/19 [History Confirmed 09/22/19 Last Taken Unknown] Vitamin D3 5,000 unit PO DAILY 09/22/19 [History Confirmed 09/22/19 Last Taken Unknown] Warfarin Sodium [Jantoven] 2.5 mg PO DAILY 09/22/19 [History Confirmed 09/22/19 Last Taken Unknown] Enoxaparin [Lovenox] 60 mg SQ BID #4 syringe 10/01/19 [Rx Last Taken Unknown] while INR subtherapeutic - repeat INR in two days. Medical - DS: Hosp Hospital Course: Ms. Ignacio is a 84 year old F with a history of atrial fibrillation who presented to the ER because she has been having mild fever for days do not feel well for 2 days. As per patient, she has been having fever for days for which she went to the ER from medical billing specialist. She was discharged home with medications. She came back again because she does not feel well for 2 days. In the ER, she was found to have will mild fever and a positive positive i nfluenza a and B. When I saw this patient in the ER, other than symptoms mentioned above, she also complains of malaise, fever and chills. Denied headache, dizziness, chest pain, shortness of breath, abdominal pain, nausea, vomiting, or diarrhea. No recent travel or sick contact. 09/22 Pt feels better. has mild sob. Denies fever/chills, headache, runny nose, or chest pain. 09/23 Pt feels fever and chills. She looks tired. temperature 99.3 this morning She is on 2 L White blood cells normalized today, 8.7 INR 3.0 Pre-calcitonin 0.58 09/24 She was lying in bed this morning when I saw her. I asked her "how are you feeling", she replied "I do not know". She no longer has fever. She is on RM during daytime. But she needs oxygen during night. Family mentioned she was desaturated during night at home. pt and family asked oxygen eval and would like to discuss where she should be discharged to 09/25 Poor sleep because of interruptions last night., She is tired. She has a cough but not producing sputum. Denies shortness of breath at rest. Family bedside. Fever last night. Good urine output last night. Discussion with family patient has been having fever for almost 3 weeks since primarily at night. She was seen at [facility] few weeks ago for atrial fibrillation with rapid ventricular rate and was cardioverted sounds like. She follows with [facility]. Further the records obtained: She had a transthoracic echocardiogram August appointment and then she had a transesophageal echocardiogram on September 15 for the cardioversion. EF 50% on MELISSA, RV mildly reduced fxn, Mechanical MV in mitral position, 09/26 Patient more alert this morning. Slept a little bit better last night. Denies any cough or shortness of breath. Decreased oxygenation. Calcitonin/ESR/CRP all improved today. I asked Dr. Carrera to see the patient given what appears to be underlying interstitial lung disease. Delving into the patients recent history prior to hospitalization and current fever spikes, which are now improving, but also the RVP showing no influenza even though the rapid ED test was positive along with other clinical findings and her picture as a whole, we will test her for COVID-19. 09/27 She slipped she slept well last night. T-max was 100.5 on only 1 reading. Is on room air during the day and 1 L at night. While speaking to her she was satting 97% on 0.5 L. Gradual improvement. 09/28 Patient sitting up in chair undergoing breathing treatment. Afebrile last night. Patient appears to be feeling better with more energetic. Occasional cough, denies shortness of breath. Family present. 09/29 Slept well. Occasional cough. Does not notice any shortness of breath. Afebrile again last night. Awaiting coronavirus test and likely placement to SNF tomorrow. 09/30 Patient doing well. On room air. Stable for discharge. 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 fib Secondary discharge diagnosis: Hypothyroidism hypertension GERD anxiety - Time Spent with Patient Total time spent providing and/or coordinating discharge services: Greater than 30 minutes Medical - DS: Exam - Constitutional Vitals: Vital Signs Temp Pulse Pulse Resp BP BP Pulse Ox 09/30/19 04:00 98.4 F 72 17 120/82 96 09/29/19 23:33 96.5 F L 73 18 118/60 95 09/29/19 21:32 99.5 F H 09/29/19 20:47 99.4 F H 09/29/19 18:21 99.4 F H 82 18 114/78 93 09/29/19 16:00 98.0 F 74 20 110/68 97 09/29/19 11:37 97.1 F 83 22 114/60 97 09/29/19 09:22 87 20 09/29/19 09:21 96 Intake and Output 09/29/19 09/30/19 09/30/19 21:59 05:59 13:59 Intake Total 200 Balance 200 Intake: Oral 200 Other: Urine Appearance Clear Urine Color Bright Yellow Urine Odor Normal Stool Size Moderate Stool Color Brown Stool Consistency Soft # Voids 1 1 # Bowel Movements 1 Weight 64.864 kg Medical - DS: Data Labs on day of discharge: Labs from last 24 hours 09/30/19 05:33 PT 18.6 H INR 1.5 H Preliminary micro results at discharge 09/26/19 00:06 Blood Culture - Preliminary Blood 09/26/19 00:15 Blood Culture - Preliminary Blood Medical - DS: A/P - Patient/Caregiver Discharge Instructions Activity: as per physical therapy Diet: Thickened Liquids Additional Instructions: Patient is being admitted to the facility under the care of the hospitalist (Dr. Jimenez). All further treatment decisions, modalities, and ultimate patient disposition be carried out by the hospitalist. Follow-up with speech therapy outpatient for modified barium swallow exam. Other Amb Orders: OT Discharge Order Location: None Selected Physical Therapy at Discharge - General Location: None Selected ST Discharge Order Location: None Selected Prothrombin Time INR Location: None Selected - Follow up Plan Follow up with: Rashard Abdi MD [Primary Care Provider] - Marin Carrera MD [Physician] - (possible sleep study) Disposition: Xfer SNF Prognosis: Fair Rehab Potential: Fair I certify that the patient requires SNF services: Yes Overall status at discharge: patient is progressing back to baseline Medical - DS: Qual - VTE Deep Vein Thrombosis/Pulmonary Embolism Present on Admission: No
[2019-09-30] MEDS: CALCIUM CARBONATE 500 MG TAB.CHEW PO SCH (10:02)
[2019-09-30] MEDS: VITAMIN D3 5,000 UNIT CAPSULE PO SCH (10:02)
[2019-09-30] MEDS: ATORVASTATIN 20 MG TABLET PO SCH (10:02)
[2019-09-30] MEDS: BUTALB/ACETAMINOPHEN/CAFFEINE 1 TABLET PO SCH (10:02)
[2019-09-30] MEDS: ENOXAPARIN 60 MG/0.6 ML SYRINGE SQ SCH ×2 (10:03→20:36)
[2019-09-30] MEDS: TIMOLOL 0.5% OPHTH DROPS BOTTLE 5ML OU SCH (10:03)
[2019-09-30] MEDS: CEFEPIME 2 GM VIAL IV SCH ×2 (10:03→20:36)
[2019-09-30] MEDS ORDERED: WARFARIN 2 MG TABLET PO SCH (14:00)
[2019-09-30] MEDS: MELATONIN 3 MG TABLET PO SCH (20:37)
[2019-09-30] MEDS: ALPRAZolam 0.5 MG TABLET PO SCH (20:37)
[2019-09-30] MEDS: LISINOPRIL 5 MG TABLET PO SCH (20:37)
[2019-09-30] MEDS: SENNOSIDES 1 TABLET PO SCH (20:40)
[2019-09-30] MEDS: LATANOPROST OPHTH DROPS 2.5ML BOTTLE OU SCH (20:40)
[2019-10-01] MEDS: ACETAMINOPHEN 325 MG TABLET PO PRN (02:30)
[2019-10-01] MEDS: 0.9 % SODIUM CHLORIDE 10 ML SYRINGE IV SCH (04:33)
[2019-10-01] MEDS: LEVOTHYROXINE 88 MCG TABLET PO SCH (07:42)
[2019-10-01] MEDS: OMEPRAZOLE 20 MG CAPSULE PO SCH (07:42)
[2019-10-01] MEDS: CALCIUM CARBONATE 500 MG TAB.CHEW PO SCH (09:08)
[2019-10-01] MEDS: VITAMIN D3 5,000 UNIT CAPSULE PO SCH (09:09)
[2019-10-01] MEDS: POTASSIUM CHLORIDE 10 MEQ TABLET PO SCH (09:09)
[2019-10-01] MEDS: ATORVASTATIN 20 MG TABLET PO SCH (09:09)
[2019-10-01] MEDS: BUTALB/ACETAMINOPHEN/CAFFEINE 1 TABLET PO SCH (09:10)
[2019-10-01] MEDS: ENOXAPARIN 60 MG/0.6 ML SYRINGE SQ SCH (09:12)
[2019-10-01] MEDS: TIMOLOL 0.5% OPHTH DROPS BOTTLE 5ML OU SCH (09:12)
[2019-10-01 09:14] LABS: INR 1.7 (0.9-1.1); Prothrombin Time 20.3 sec (11.9-14.5)
[2019-10-01] MEDS: CEFEPIME 2 GM VIAL IV SCH (10:45)
--- NOTE | 2019-10-01 13:40 | Non-GYN Cytology Report ---
NON WORK CHECKER SPECIMEN MICROSCOPIC DIAGNOSIS PLEURAL FLUID, THORACENTESIS: -- NO ATYPICAL OR MALIGNANT CELLS IDENTIFIED, SEE COMMENT. (EBD:adj) COMMENT: The pleural fluid shows single and clustered mesothelial cells with benign features and abundant background histiocytes. No metastatic carcinoma is identified. MICROSCOPIC DESCRIPTION Cytologic preparations of the pleural effusion show mesothelial cells with benign features and scattered histiocytes. CD68 highlights histiocytes while WT-1 and calretinin highlight mesothelial cells. No metastatic carcinoma is identified by [id number] and [id number] immunostains. All stains show adequate technical controls. (EBD:adj) Some of the tests reported here may not have been cleared or approved by the U.S. Food and Drug Administration (FDA). However, the FDA has determined that such clearance or approval is not necessary. Pursuant to the requirements of CLIA, this laboratory has established and verified the accuracy and precision of all tests, and additional information about these tests is available upon request. All technical controls are adequate. CLINICAL HISTORY Moderate bilateral pleural effusion. EXTERNAL COMMENT ~100 mL fresh cloudy yellow fluid: 1 thinprep, 1 Daniel Giemsa 1 pap, 1 Diff Quik, 1 cell block Electronically Signed by: Sola Clark M.D.
[2019-10-03 07:52] LABS: Myeloperoxidase Antibody <1.0 AI (<1.0)
[2019-10-03 15:23] LABS: Mitogen - NIL 8.03 IU/mL; NIL 0.21 IU/mL; Quant TB Gold + 4T Incubated NEGATIVE (NEGATIVE); TB1-NIL 0.01 IU/mL; TB2-NIL 0.01 IU/mL
== END 2019-10-01 11:05 | DRG 193 ==
LOC: MEDSUR 10:53 → ED 10:53 → MEDSUR 16:44 → OBSVTOIN 16:48 → MEDSUR 09-24 13:18
PROVIDERS: ADMIT Internal Medicine; ATTEND Internal Medicine

== ENCOUNTER 2020-06-28 07:57 | Observation (INO) ==
[2020-06-28] MEDS ORDERED: IOPAMIDOL 100 ML BOTTLE IV ONE (07:58)
[2020-06-28] MEDS ORDERED: ONDANSETRON 4 MG/2 ML VIAL IV ONE (08:38)
[2020-06-28] MEDS ORDERED: 0.9 % SODIUM CHLORIDE 1,000 ML IV ONE (08:38)
[2020-06-28] MEDS ORDERED: HYDROmorphone 0.5 MG/0.5 ML SYRINGE IV PRN (08:38)
[2020-06-28] MEDS ORDERED: HYDROmorphone 0.5 MG/0.5 ML SYRINGE IV ONE (08:54)
[2020-06-28 09:14] LABS: Basophils # (Auto) 0.09 K/mcL (0.00-0.20); Basophils % (Auto) 0.7 % (0.0-2.0); Eosinophils # (Auto) 0.21 K/mcL (0.00-0.70); Eosinophils % (Auto) 1.7 % (0.0-7.0); Hematocrit 39.1 % (36.0-48.0); Hemoglobin 12.6 g/dL (12.0-15.0); Lymphocytes # (Auto) 1.44 K/mcL (1.50-4.80); Lymphocytes % (Auto) 11.3 % (15.0-49.0); Mean Corpuscular HGB Conc 32.2 g/dL (31.0-36.0); Mean Platelet Volume 10.8 fL (7.4-10.4); Monocytes # (Auto) 1.04 K/mcL (0.10-0.90); Monocytes % (Auto) 8.2 % (1.0-12.0); Neutrophils % (Auto) 78.1 % (38.0-78.0); Platelet Count 158 K/mcL (140-440); RBC 4.03 M/mcL (4.00-5.20); Red Cell Distribution Width 14.3 % (11.5-14.5); WBC 12.7 K/mcL (4.5-11.0)
[2020-06-28 09:28] LABS: POC Creatinine 1.1 mg/dL (0.6-1.2)
--- NOTE | 2020-06-28 09:31 | Emergency Department Note ---
Abdominal Pain HPI General Chief Complaint: Abdominal Pain Stated Complaint: Abd pain Time Seen by Provider: 06/28/20 08:30 Source: patient Mode of arrival: wheelchair Limitations: no limitations History of Present Illness HPI Narrative: Narrative: I am seeing this very pleasant 85-year-old female in the emergency room where she had come wheeled in by wheelchair. Her primary complaint is right lower quadrant discomfort today. She did have some chills a couple days ago and one episode of emesis. [facility] seen [facility] and able to go home. Covid test is pending. She had at that time some mildly elevated BUN and creatinine at 25/1.3, her normal creatinine 0.9. She also had a mildly elevated bilirubin at 2.2 and mild AST elevation at 57. The bilirubin elevation was new. She has had some minor previously off and on AST elevations in. the upper 30s and 40s. She reports that she has not currently having any runny nose, sore throat. She does have some chronic low-grade cough that has not changed. No current nausea or vomiting or diarrhea. No dysuria or frequency. No specific source for fevers or chills or major illness but does have significant right lower quadrant pain. This pain is moderate to severe, nonradiating. No history of diverticulitis. She has had previous colonoscopy but she is not certain of exactly when but it seems to have been a while ago by one of the GI doctors across the [place]. She is on warfarin due to a mitral valve replacement. She monitors her INR at [facility]me but her knows those results and she does not remember them. Her chart also reveals atrial fibrillation. Related Data Home Medications Medication Instructions Recorded Confirmed acetaminophen 1,000 mg PO DAILY 09/22/19 06/26/20 atorvastatin 20 mg PO DAILY 09/22/19 06/26/20 [id number] 1 tab PO DAILY 09/22/19 06/26/20 calcium carbonate 600 mg PO DAILY 09/22/19 06/26/20 cholecalciferol (vitamin D3) 5,000 unit PO DAILY 09/22/19 06/26/20 docusate sodium 100 mg PO DAILY 09/22/19 06/26/20 latanoprost (PF) 1 drp .ROUTE DAILY 09/22/19 06/26/20 levothyroxine 88 mcg PO DAILY 09/22/19 06/26/20 lisinopril 2.5 mg PO HS 09/22/19 06/26/20 omeprazole 20 mg PO DAILY 09/22/19 06/26/20 potassium chloride 10 meq PO DAILY 09/22/19 06/26/20 timolol 15 ml OP DAILY 09/22/19 06/26/20 warfarin 2.5 mg PO DAILY 09/22/19 06/26/20 Previous Rx's Medication Instructions Recorded alprazolam 0.5 mg PO HS #6 tab 10/01/19 enoxaparin 60 mg SQ BID #4 syringe 10/01/19 Allergies Allergy/AdvReac Type Severity Reaction Status Date / Time alendronate sodium Allergy Mild Unknown Verified 06/28/20 07:58 [From Fosamax] clindamycin Allergy Mild Hives Verified 06/28/20 07:58 fluoxetine Allergy Mild Hives Verified 06/28/20 07:58 Penicillins Allergy Mild Hives Verified 06/28/20 07:58 phenazopyridine Allergy Mild Hives Verified 06/28/20 07:58 rofecoxib Allergy Mild Unknown Verified 06/28/20 07:58 Sulfa (Sulfonamide Allergy Mild Hives Verified 06/28/20 07:58 Antibiotics) adhesive tape AdvReac Mild Blister Verified 06/28/20 07:58 Review of Systems ROS ROS Narrative: Narrative: No current fevers chills or sweats, headache or dizziness, sore throat, runny nose, chest pain, new or worse cough, shortness of breath, abdominal pain, nausea, vomiting, diarrhea, constipation, dysuria. Has some chronic low-grade incontinence and urgency. 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) Palpitations (Acute) Atrial fibrillation (Chronic) Medical History (Updated 06/28/20 @ 12:16 by Pavel Thompson DO) Atrial fibrillation (Chronic) Influenza (Inactive) custodial (current) use of anticoagulants (Chronic) Pneumonia (Inactive) Surgical History (Updated 06/28/20 @ 11:27 by Pavel Thompson DO) History of cataract surgery (Acute) 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) Family History (Updated 06/28/20 @ 11:24 by Pavel Thompson DO) Cancer Mother Social History Smoking Status: Never smoker Alcohol Intake Frequency: does not drink Substance Use: does not use Exam Narrative Narrative: Narrative: General Limitations: no limitations General appearance: Present alert, in no apparent distress and nontoxic; Absent malaise and obtunded Head Head: Present atraumatic and normocephalic Eye Eye: Present normal appearance, PERRL and EOMI ENT ENT: Present normal oropharynx, mucous membranes moist and other (Midline bolus posterior hard palate rounded lesions, compatible with congenital formation betsy cecilia, or similar.) Chest Chest: Present symmetric chest wall rise Respiratory Respiratory: Present rales/crackles (Slight or mild in the right base posteriorly.); Absent respiratory distress, wheezes, stridor, accessory muscle use and prolonged expiratory phase Cardiovascular Cardiovascular: Present regular rate, normal rhythm and systolic murmur (Divide throughout the precordium 06/22 late systolic.); Absent diastolic murmur Adbominal Abdominal: Present soft, tenderness and guarding; Absent distention, rebound, rigidity, organomegaly and mass Expanded Abdominal Abdominal Tenderness: Present RLQ, moderate and severe Extremities Extremities: Absent pedal edema, pretibial edema, calf tenderness and cyanosis Back Back: Absent CVA tenderness (R), CVA tenderness (L) and spinous process tenderness Neurological Neurological: Present alert and oriented X3 Psychiatric Psychiatric: Present normal affect, polite and pleasant; Absent depressed, agitated, anxious and poor eye contact Skin Skin: Present warm (WNL) and dry; Absent cyanosis and pallor Course Vital Signs Vital signs: Vital Signs Temperature 97.7 F 06/28/20 07:58 Pulse Rate 76 06/28/20 07:58 Respiratory Rate 16 06/28/20 07:58 Blood Pressure 161/72 06/28/20 07:58 Pulse Oximetry (%) 96 06/28/20 07:58 Temperature 97.7 F 06/28/20 07:58 Pulse Rate 65 06/28/20 11:01 Respiratory Rate 16 06/28/20 07:58 Blood Pressure 127/62 06/28/20 11:01 Pulse Oximetry (%) 98 06/28/20 11:01 MDM MDM Narrative Medical decision making narrative: Narrative: 9:18 AM - interviewed and examined. Work-up already had been initiated prior to my arrival including labs and imaging. INR POC added. Initial white count mildly elevated at 12.7. She has also received some IV fluids. She does not look toxic but does seem to have some peritoneal signs in the right lower quadrant. Consider appendicitis, diverticulitis, bowel blockage, ovarian pathology, etc. 11:05 AM - INR 2.5. 11:10 AM - CT demonstrates acute appendicitis. Other labs are fairly similar and unremarkable. Her creatinine again is 1.3 which is mild elevation compared to her previous baseline of 0.9. 11:15 AM - spoke with Dr. Gonzalez. We will give 2 units of FFP to reverse her INR and he will do her surgery this afternoon. We chose Levaquin because of her devious history of antibiotic hive reactions for antibiotic choice. He will be in fairly soon. Patient is agreeable. Rapid Covid ordered. 12:45 AM - EKG demonstrates sinus rhythm with no ACS. Some borderline low voltage in the extremity leads. Prolonged QT at around 500. Even with this the Levaquin is needed due to her previous allergic reactions and she will be under continuous monitoring. 12:00 PM - with QT prolongation I had her Levaquin stopped. 12:10 PM - spoke with Dr. Gonzalez regarding antibiotic choices. We agreed to go with meropenem. There is some cross-reactivity with penicillins but she could not remember a significant reaction and listed in the chart is only hives. There is only partial cross-reactivity and hives is usually not life-threatening and it was probably remote, therefore this is most likely much more safe and appropriate than the QT prolonging fluoroquinolone. Lab Data Result diagrams: 06/28/20 08:25 06/28/20 08:25 Labs: Lab Results 06/28/20 06/28/20 06/28/20 Range/Units 08:25 08:25 08:25 WBC 12.7 H (4.5-11.0) K/mcL RBC 4.03 (4.00-5.20) M/mcL Hgb 12.6 (12.0-15.0) g/dL Hct 39.1 (36.0-48.0) % MCV 97.0 (80.0-100.0) fL MCH 31.3 (26.0-34.0) pg MCHC 32.2 (31.0-36.0) g/dL RDW 14.3 (11.5-14.5) % Plt Count 158 (140-440) K/mcL MPV 10.8 H (7.4-10.4) fL Neut % (Auto) 78.1 H (38.0-78.0) % Lymph % (Auto) 11.3 L (15.0-49.0) % Lane % (Auto) 8.2 (1.0-12.0) % Eos % (Auto) 1.7 (0.0-7.0) % Baso % (Auto) 0.7 (0.0-2.0) % Lymph # (Auto) 1.44 L (1.50-4.80) K/mcL Lane # (Auto) 1.04 H (0.10-0.90) K/mcL Eos # (Auto) 0.21 (0.00-0.70) K/mcL Baso # (Auto) 0.09 (0.00-0.20) K/mcL Absolute Neutrophils 9.91 H (1.80-8.00) K/mcL PT INR VBG Lactic Acid (0.5-2.0) mmol/L Sodium 140 (133-145) mmol/L Potassium 4.1 (3.3-5.1) mmol/L Chloride 100 (96-108) mmol/L Carbon Dioxide 25 (22-30) mmol/L Anion Gap 15.0 (8.0-16.0) BUN 35 H (8-23) mg/dL Creatinine 1.3 H (0.6-1.1) mg/dL POC Creatinine 1.1 (0.6-1.2) mg/dL GFR Calculation 37 Glucose 105 (70-105) mg/dL Calcium 9.5 (8.6-10.4) mg/dL Total Bilirubin 0.7 (0.1-1.0) mg/dL GGT 72 H (5-36) U/L AST 46 H (<32) U/L ALT 32 (<40) U/L Alkaline Phosphatase 82 (39-117) U/L C-Reactive Protein 18.90 H (0.03-0.80) mg/dL Total Protein 7.3 (5.9-8.4) gm/dL Albumin 3.8 (3.2-5.2) gm/dL Globulin 3.5 (2.2-3.7) gm/dL Albumin/Globulin Ratio 1.1 (1.0-2.3) Lipase 14 (7-60) U/L 06/28/20 06/28/20 Range/Units 08:25 08:25 WBC (4.5-11.0) K/mcL RBC (4.00-5.20) M/mcL Hgb (12.0-15.0) g/dL Hct (36.0-48.0) % MCV (80.0-100.0) fL MCH (26.0-34.0) pg MCHC (31.0-36.0) g/dL RDW (11.5-14.5) % Plt Count (140-440) K/mcL MPV (7.4-10.4) fL Neut % (Auto) (38.0-78.0) % Lymph % (Auto) (15.0-49.0) % Lane % (Auto) (1.0-12.0) % Eos % (Auto) (0.0-7.0) % Baso % (Auto) (0.0-2.0) % Lymph # (Auto) (1.50-4.80) K/mcL Lane # (Auto) (0.10-0.90) K/mcL Eos # (Auto) (0.00-0.70) K/mcL Baso # (Auto) (0.00-0.20) K/mcL Absolute Neutrophils (1.80-8.00) K/mcL PT TNP INR TNP VBG Lactic Acid 1.4 (0.5-2.0) mmol/L Sodium (133-145) mmol/L Potassium (3.3-5.1) mmol/L Chloride (96-108) mmol/L Carbon Dioxide (22-30) mmol/L Anion Gap (8.0-16.0) BUN (8-23) mg/dL Creatinine (0.6-1.1) mg/dL POC Creatinine (0.6-1.2) mg/dL GFR Calculation Glucose (70-105) mg/dL Calcium (8.6-10.4) mg/dL Total Bilirubin (0.1-1.0) mg/dL GGT (5-36) U/L AST (<32) U/L ALT (<40) U/L Alkaline Phosphatase (39-117) U/L C-Reactive Protein (0.03-0.80) mg/dL Total Protein (5.9-8.4) gm/dL Albumin (3.2-5.2) gm/dL Globulin (2.2-3.7) gm/dL Albumin/Globulin Ratio (1.0-2.3) Lipase (7-60) U/L Discharge Plan Patient/Caregiver Discharge Instructions Pt seen by KINESEOLOGIST/PA only: No Clinical Impression: Acute appendicitis, custodial (current) use of anticoagulants, History of mitral valve replacement with 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, Prolonged Q-T interval on ECG Patient Disposition: Xfer As Outpt/Obs ([facility]) Follow up with: Rashard Abdi MD [Primary Care Provider] - Prescriptions: No Action levothyroxine 88 MCG tablet 88 mcg PO DAILY RF: 0 warfarin 5 MG tablet 2.5 mg PO DAILY RF: 0 docusate sodium 100 MG capsule 100 mg PO DAILY RF: 0 omeprazole 20 MG capsule 20 mg PO DAILY RF: 0 lisinopril 2.5 MG tablet 2.5 mg PO HS RF: 0 cholecalciferol (vitamin D3) 5,000 UNIT capsule 5,000 unit PO DAILY RF: 0 [id number]-[id number] 1 EACH capsule 1 tab PO DAILY RF: 0 acetaminophen 500 MG tablet 1,000 mg PO DAILY RF: 0 calcium carbonate 600 MG tablet 600 mg PO DAILY RF: 0 atorvastatin 20 MG tablet 20 mg PO DAILY RF: 0 potassium chloride 10 MEQ tablet 10 meq PO DAILY RF: 0 timolol 5 ML drops 15 ml OP DAILY RF: 0 latanoprost (PF) 7.5 ML drops 1 drp .Route DAILY RF: 0 enoxaparin 60 MG/0.6 ML syringe 60 mg SQ BID Qty: 4 RF: 0 alprazolam 0.5 MG tablet 0.5 mg PO HS Qty: 6 RF: 0
[2020-06-28 09:46] LABS: ALT/SGPT 32 U/L (<40); AST/SGOT 46 U/L (<32); Albumin 3.8 gm/dL (3.2-5.2); Albumin/Globulin Ratio 1.1 (1.0-2.3); Alkaline Phosphatase 82 U/L (39-117); Bilirubin,Total 0.7 mg/dL (0.1-1.0); Blood Urea Nitrogen 35 mg/dL (8-23); C-Reactive Protein 18.9 mg/dL (0.03-0.80); Calcium 9.5 mg/dL (8.6-10.4); Carbon Dioxide 25 mmol/L (22-30); Chloride 100 mmol/L (96-108); Globulin 3.5 gm/dL (2.2-3.7); Glomerular Filtration Rate 37; Glucose 105 mg/dL (70-105)
--- NOTE | 2020-06-28 10:06 | Cat Scan Report ---
INDICATION: RLQ pain COMPARISON: None. TECHNIQUE: Axial images were obtained through the abdomen and pelvis. Sagittally and coronally reformatted images. 70 mL Isovue 370 injected intravenously. FINDINGS: Lung bases:There is dependent atelectasis. Lung bases are not well expanded. Groundglass opacities are possible covid pneumonia is not excluded. Clinical correlation and routine chest x-ray may be of benefit. Liver:Negative. No focal intrahepatic mass. No focal abnormality. Liver contour is smooth. No evidence for cirrhosis Gallbladder, bilary:Gallbladder is not well expanded. No calcified gallstones. No dilated bile ducts Spleen:No splenomegaly. Normal enhancement of splenic and portal veins. Pancreas:No pancreatic mass. No peripancreatic abnormality Adrenal glands:Negative Kidneys, ureters, bladder:No solid or cystic renal mass. No hydronephrosis. No obstructing calculi. There is no hydroureter. No ureteral stone No bladder calculi or detectable mass Gastrointestinal:Distal sigmoid colon and rectum are somewhat obscured by beam hardening artifact. Mild sigmoid diverticulosis. No diverticulitis. No detectable colonic mass. Small bowel is negative. No mechanical small bowel obstruction. Stomach and duodenum are unremarkable Appendix: The appendix is abnormal. There is appendiceal enlargement. Appendix measures 13 mm in cross-sectional diameter. There is periappendiceal inflammatory change. Appearance is consistent with appendicitis. No evidence for significant rupture. There is no periappendiceal abscess. No pneumoperitoneum. Vascular: Abdominal aorta is calcified. There is no abdominal aortic aneurysm. There is mild calcification at the origins of the superior mesenteric artery and celiac trunk. No stenosis. Inferior mesenteric artery is opacified. Lymphatic:No retroperitoneal or mesenteric adenopathy Mesentery, peritoneum: No free intraperitoneal fluid. No mesenteric or retroperitoneal mass. Reproductive:Uterus is atrophic and anteflexed. No adnexal mass Musculoskeletal:L3 and L4 vertebral bodies are fused. There is severe degenerative disc disease at L1-L2, L2-L3, L5-S1. No lumbar compression fractures. There is degenerative facet arthropathy. Sacrum is negative. No sacral insufficiency fracture. No pelvic fracture. Patient has undergone previous right total hip arthroplasty No abdominal wall or inguinal hernia IMPRESSION: 1. Acute appendicitis. No evidence for ruptured appendix 2. Abnormal lung bases. There is dependent atelectasis. Clinical correlation recommended to exclude covid pneumonia. 3. Degenerative disc disease at L1-L2, L2-L3, L5-S1 4. Atherosclerotic calcification. No abdominal aortic aneurysm The exam was performed using radiation dose optimization techniques including, but not limited to, automated exposure control, adjustment of the mA and/or kV according to patient size and use of iterative reconstruction technique. Interpreted and Authenticated by: Addy Jarquin 06/28/20
[2020-06-28] MEDS ORDERED: LEVOFLOXACIN 500 MG/100 ML BAG IV ONE (11:18)
--- NOTE | 2020-06-28 12:05 | XRay Report ---
INDICATION: pre surgery TECHNIQUE: AP portable upright chest x-ray COMPARISON: Previous chest x-rays dated 09/27/2019, 09/26/2019 FINDINGS:There is a prosthetic cardiac valve, probably aortic. This is unchanged Lungs:Prominent interstitial markings bilaterally. Appearance is improved. Findings are consistent with pulmonary congestion. No focal pulmonary parenchymal infiltrates. No consolidation. Heart, vascular:Marked cardiomegaly. All major congestion as above. No alveolar infiltrates. Mediastinum, chela:No mediastinal widening. No hilar mass Pleura:No pleural fluid. No pleural-based mass or calcification Skeletal:Negative. IMPRESSION: 1. Mild cardiomegaly. Prominent interstitial markings and appearance consistent with pulmonary congestion 2. Interval improvement since 09/27/2019 3. No focal pulmonary parenchymal consolidation Interpreted and Authenticated by: Addy Jarquin 06/28/20
[2020-06-28] MEDS ORDERED: MEROPENEM 1 GM in 0.9 % SODIUM CHLORIDE 50 ML IV ONE (12:12)
[2020-06-28] MEDS ORDERED: 0.9 % SODIUM CHLORIDE 250 ML IV SCH (12:15)
[2020-06-28] MEDS ORDERED: MEROPENEM 1 GM in 0.9 % SODIUM CHLORIDE 100 ML IV ONE (13:00)
[2020-06-28] MEDS: HYDROmorphone 0.5 MG/0.5 ML SYRINGE IV PRN ×2 (14:00→22:14)
--- NOTE | 2020-06-28 14:41 | General Surg History&Physical ---
HPI History of Present Illness Patient information: Note initiated : 06/28/20 at 2:32 pm Service Date, if different from initiated Date: [] Patient: Ameena Ignacio 85 y/o F admitted on for Abd pain. Chief Complaint: [] Chief complaint: acute abdominal pain History of present illness: Ms. Ignacio is a 85 year old F admitted with acute appendicitis. The patient HAD diffuse abdominal pain in the late evening and during the night. The pain localized to her right lower quadrant and became more severe. She did not have nausea, vomiting or diarrhea. She has some chills but no documented fever. Because of increasing pain and weakness. She was seen in the emergency room where it was noted that she had tenderness in her right lower quadrant. CT of the abdomen and pelvis shows acute Evin inflamed appendix. Appendiceal tissue edema compatible with acute appendicitis. She is admitted for treatment. The patient has chronic atrial fibrillation and a prosthetic mitral valve. She has been on chronic warfarin therapy and has an INR of 2.5. She is advised that we will need to give her FFP prior to surgery, but her surgery will be performed today. Constitutional Constitutional: Present chills, fatigue, frequent falls, lethargy, malaise, night sweats and weakness Cardiovascular Cardiovascular: Present lightheadedness, palpatations, rapid heart rate and syncope Respiratory Respiratory: Absent dyspnea on exertion, wheezing and pain with cough Gastrointestinal Gastrointestinal: Present abdominal pain, cramping and heartburn; Absent diarrhea, loose stools, nausea and vomiting Genitourinary Genitourinary: Present change in urinary stream, urinary frequency, urinary incontinence and urinary urgency Musculoskeletal Musculoskeletal: Present arthralgias, joint swelling, myalgias and numbness Integumentary Integumentary: Absent new lesions and non-healing lesions Neurological Neurological: Present dizziness, focal weakness, memory loss, syncope and vertigo; Absent abnormal movements, abnormal speech and sensory deficit Psychiatric Psychiatric: Present confusion and memory loss Endocrine Endocrine: Absent heat intolerance and palpitations Hematologic/Lymphatic Hematologic/Lymphatic: Present easy bleeding and easy bruising; Absent lymphadenopathy Allergic/Immunologic Allergic/Immunologic: Absent tongue swelling, throat swelling, uticaria, w heezing and lip swelling PFSH PFSH All Active Problems (Updated 06/28/20 @ 14:40 by Luis Gonzalez MD) Acute appendicitis (Acute) Prolonged Q-T interval on ECG (Acute) Abnormal laboratory test (Acute) RLQ abdominal pain (Acute) Nausea & vomiting (Acute) Acute URI (Acute) 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) 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) Palpitations (Acute) Atrial fibrillation (Chronic) Medical History Atrial fibrillation (Chronic) Influenza (Inactive) FDC (current) use of anticoagulants (Chronic) Pneumonia (Inactive) Surgical History History of cataract surgery (Acute) 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) Family History Mother Cancer Social History smoking status: Never smoker alcohol intake frequency: does not drink substance use type: does not use MEDS/ALLERGIES Home Medications and Allergies Home Medications Medication Instructions Recorded Confirmed Type acetaminophen 1,000 mg PO DAILY 09/22/19 06/26/20 History atorvastatin 20 mg PO DAILY 09/22/19 06/26/20 History kozdkzdpxc-[id number]-[id number] 1 tab PO DAILY 09/22/19 06/26/20 History calcium carbonate 600 mg PO DAILY 09/22/19 06/26/20 History cholecalciferol (vitamin D3) 5,000 unit PO DAILY 09/22/19 06/26/20 History docusate sodium 100 mg PO DAILY 09/22/19 06/26/20 History latanoprost (PF) 1 drp .ROUTE DAILY 09/22/19 06/26/20 History levothyroxine 88 mcg PO DAILY 09/22/19 06/26/20 History lisinopril 2.5 mg PO HS 09/22/19 06/26/20 History omeprazole 20 mg PO DAILY 09/22/19 06/26/20 History potassium chloride 10 meq PO DAILY 09/22/19 06/26/20 History timolol 15 ml OP DAILY 09/22/19 06/26/20 History warfarin 2.5 mg PO DAILY 09/22/19 06/26/20 History alprazolam 0.5 mg PO HS #6 tab 10/01/19 06/26/20 Rx enoxaparin 60 mg SQ BID #4 syringe 10/01/19 06/26/20 Rx Allergies Allergy/AdvReac Type Severity Reaction Status Date / Time alendronate sodium Allergy Mild Unknown Verified 06/28/20 07:58 [From Fosamax] clindamycin Allergy Mild Hives Verified 06/28/20 07:58 fluoxetine Allergy Mild Hives Verified 06/28/20 07:58 Penicillins Allergy Mild Hives Verified 06/28/20 07:58 phenazopyridine Allergy Mild Hives Verified 06/28/20 07:58 rofecoxib Allergy Mild Unknown Verified 06/28/20 07:58 Sulfa (Sulfonamide Allergy Mild Hives Verified 06/28/20 07:58 Antibiotics) adhesive tape AdvReac Mild Blister Verified 06/28/20 07:58 Physical Examination Vital Signs Vital signs: Temp Pulse Resp BP Pulse Ox 98.1 F 68 16 135/68 98 06/28/20 13:05 06/28/20 13:05 06/28/20 13:30 06/28/20 13:05 06/28/20 13:30 General physical appearance General physical exam: well developed, well nourished, no distress and moderate pain (hypogastric limb and right lower quadrant) Eyes Eye exam: PERRL and normal ocular movement ENT ENT exam: normal pinna, no congestion and other (normal teeth and gums) Head Head exam IM: Present atraumatic, normal inspection and normocephalic Neck Neck exam: no masses, no bruits, trachea midline, no lymphadenopathy and no venous distension Cardiovascular Cardiovascular exam IM: Present irregular rhythm, +S1, +S2 and systolic murmur Respiratory Respiratory exam: normal expansion, normal respiratory effort, clear to auscultation and other Abdomen Abdomen: Present soft and tender (tenderness to palpation in the hypogastrium and right lower quadrant with guarding) Integumentary Integumentary: Present no rash, no growths, no abnormal pigmentation and other Neurologic Neurologic: Present normal sensation and memory loss Musculoskeletal Musculoskeletal: Present normal gait and normal posture Psychiatric Psychiatric: Present oriented to time, oriented to person, oriented to place and speech is normal Results Labs Result diagrams: 06/28/20 08:25 06/28/20 08:25 Labs: Abnormal lab results 12/12/20 12/12/20 12/12/20 Range/Units 08:25 08:25 08:25 WBC 12.7 H (4.5-11.0) K/mcL MPV 10.8 H (7.4-10.4) fL Neut % (Auto) 78.1 H (38.0-78.0) % Lymph % (Auto) 11.3 L (15.0-49.0) % Lymph # (Auto) 1.44 L (1.50-4.80) K/mcL Kay # (Auto) 1.04 H (0.10-0.90) K/mcL Absolute Neutrophils 9.91 H (1.80-8.00) K/mcL BUN 35 H (8-23) mg/dL Creatinine 1.3 H (0.6-1.1) mg/dL GGT 72 H (5-36) U/L AST 46 H (<32) U/L C-Reactive Protein 18.90 H (0.03-0.80) mg/dL Diabetes panel 06/28/20 Range/Units 08:25 Sodium 140 (133-145) mmol/L Potassium 4.1 (3.3-5.1) mmol/L Chloride 100 (96-108) mmol/L Carbon Dioxide 25 (22-30) mmol/L BUN 35 H (8-23) mg/dL Creatinine 1.3 H (0.6-1.1) mg/dL Glucose 105 (70-105) mg/dL Calcium 9.5 (8.6-10.4) mg/dL AST 46 H (<32) U/L ALT 32 (<40) U/L Alkaline Phosphatase 82 (39-117) U/L Total Protein 7.3 (5.9-8.4) gm/dL Albumin 3.8 (3.2-5.2) gm/dL Calcium panel 06/28/20 Range/Units 08:25 Calcium 9.5 (8.6-10.4) mg/dL Albumin 3.8 (3.2-5.2) gm/dL Pituitary panel 06/28/20 Range/Units 08:25 Sodium 140 (133-145) mmol/L Potassium 4.1 (3.3-5.1) mmol/L Chloride 100 (96-108) mmol/L Carbon Dioxide 25 (22-30) mmol/L BUN 35 H (8-23) mg/dL Creatinine 1.3 H (0.6-1.1) mg/dL Glucose 105 (70-105) mg/dL Calcium 9.5 (8.6-10.4) mg/dL Adrenal panel 06/28/20 Range/Units 08:25 Sodium 140 (133-145) mmol/L Potassium 4.1 (3.3-5.1) mmol/L Chloride 100 (96-108) mmol/L Carbon Dioxide 25 (22-30) mmol/L BUN 35 H (8-23) mg/dL Creatinine 1.3 H (0.6-1.1) mg/dL Glucose 105 (70-105) mg/dL Calcium 9.5 (8.6-10.4) mg/dL Total Bilirubin 0.7 (0.1-1.0) mg/dL AST 46 H (<32) U/L ALT 32 (<40) U/L Alkaline Phosphatase 82 (39-117) U/L Total Protein 7.3 (5.9-8.4) gm/dL Albumin 3.8 (3.2-5.2) gm/dL All other labs normal. 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 Patient is counseled for laparoscopic appendectomy which will be performed later today. We will monitor volume closely to prevent volume overload. Meropenem for antibiotic coverage because of multiple allergies Time Spent With Patient Time: Total time spent is greater than 50% in coordination of care (as documented) at patient's floor/unit and/or counseling patient:
[2020-06-28] MEDS ORDERED: ONDANSETRON 4 MG/2 ML VIAL IV PRN (16:40)
[2020-06-28] MEDS ORDERED: FUROSEMIDE 40 MG/4 ML VIAL IV ONE (16:41)
[2020-06-28] MEDS: PHYTONADIONE 10 MG/ML AMPUL SQ SCH (21:07)
[2020-06-29] MEDS: MEROPENEM 1 GM in 0.9 % SODIUM CHLORIDE 100 ML IV SCH ×4 (00:40→21:00)
[2020-06-29] MEDS: PHYTONADIONE 10 MG/ML AMPUL SQ SCH (08:06)
[2020-06-29] MEDS ORDERED: KETAMINE 100 MG/ML ML ONE (09:07)
[2020-06-29] MEDS ORDERED: SUGAMMADEX SODIUM 200 MG/2 ML VIAL IV ONE (09:07)
[2020-06-29] MEDS ORDERED: DEXAMETHASONE 10 MG/ML VIAL ONE (09:07)
[2020-06-29] MEDS ORDERED: LIDOCAINE HCL/PF 100 MG/5 ML SYRINGE IV ONE (09:07)
[2020-06-29] MEDS ORDERED: PROPOFOL 200 MG/20 ML VIAL IV ONE (09:07)
[2020-06-29] MEDS ORDERED: ONDANSETRON 4 MG/2 ML VIAL ONE (09:07)
[2020-06-29] MEDS ORDERED: ROCURONIUM 10 MG/ML ML IV ONE (09:07)
[2020-06-29 09:11] LABS: POC INR 1.5 (0.8-1.2); POC Pro Time 17.9 sec (11.9-14.5)
[2020-06-29 09:11] LABS: POC INR 1.5 (0.8-1.2); POC Pro Time 17.9 sec (11.9-14.5)
[2020-06-29 09:20] LABS: Basophils # (Auto) 0.06 K/mcL (0.00-0.20); Basophils % (Auto) 0.6 % (0.0-2.0); Eosinophils # (Auto) 0.26 K/mcL (0.00-0.70); Eosinophils % (Auto) 2.7 % (0.0-7.0); Hematocrit 36.2 % (36.0-48.0); Hemoglobin 11.6 g/dL (12.0-15.0); Lymphocytes # (Auto) 1.16 K/mcL (1.50-4.80); Lymphocytes % (Auto) 11.8 % (15.0-49.0); Mean Cell Volume 96.5 fL (80.0-100.0); Mean Platelet Volume 11.2 fL (7.4-10.4); Monocytes % (Auto) 10.2 % (1.0-12.0); Neutrophils % (Auto) 74.7 % (38.0-78.0); Platelet Count 155 K/mcL (140-440); RBC 3.75 M/mcL (4.00-5.20); Red Cell Distribution Width 14.2 % (11.5-14.5); WBC 9.8 K/mcL (4.5-11.0)
[2020-06-29 09:31] LABS: ALT/SGPT 29 U/L (<40); AST/SGOT 39 U/L (<32); Albumin 3.9 gm/dL (3.2-5.2); Albumin/Globulin Ratio 1.1 (1.0-2.3); Alkaline Phosphatase 101 U/L (39-117); Bilirubin,Direct < 0.2 mg/dL (<0.3); Bilirubin,Total 0.8 mg/dL (0.1-1.0); Blood Urea Nitrogen 20 mg/dL (8-23); Calcium 9.3 mg/dL (8.6-10.4); Carbon Dioxide 31 mmol/L (22-30); Chloride 97 mmol/L (96-108); Globulin 3.7 gm/dL (2.2-3.7); Glomerular Filtration Rate 41; Glucose 85 mg/dL (70-105); Lactate Dehydrogenase 396 U/L (135-225); Triglycerides 114 mg/dL (<150); Uric Acid 5.9 mg/dL (2.5-8.0)
[2020-06-29] MEDS ORDERED: IPRATROPIUM/ALBUTEROL 3 ML AMPUL.NEB NEB PRN (09:32)
[2020-06-29] MEDS ORDERED: PROMETHAZINE 25 MG/ML VIAL IV PRN (09:32)
[2020-06-29] MEDS ORDERED: LACTATED RINGERS 250 ML IV PRN (09:32)
[2020-06-29] MEDS ORDERED: MEPERIDINE 25 MG/ML SYRINGE IV PRN (09:32)
[2020-06-29] MEDS ORDERED: ONDANSETRON 4 MG/2 ML VIAL IV PRN ×2 (09:32→10:48)
[2020-06-29] MEDS ORDERED: ACETAMINOPHEN 1,000 MG/100 ML BAG IV ONE (09:32)
[2020-06-29] MEDS ORDERED: NALOXONE HCL 0.4 MG/ML VIAL IV PRN (09:32)
[2020-06-29] MEDS ORDERED: diphenhydrAMINE 50 MG/ML VIAL IV PRN (09:32)
[2020-06-29] MEDS ORDERED: LACTATED RINGERS 1,000 ML IV SCH (09:45)
--- NOTE | 2020-06-29 09:47 | Brief Operative Note ---
Brief Operative Note Date of procedure: 06/29/20 Pre-op diagnosis: acute appendicitis Post-op diagnosis: other (acute appendicitis) Procedure: laparoscopic appendectomy Grafts/Implants: No Anesthesia: GETA Findings: acute suppurative appendicitis Complications: none Surgeon: Luis Gonzalez Estimated blood loss (cc): 10 Specimens Removed/Pathology: other (appendix) Condition: stable Disposition: PACU
[2020-06-29] MEDS: fentaNYL 100 MCG/2 ML VIAL IV PRN ×2 (10:12→10:31)
[2020-06-29 10:47] LABS: INR 1.6 (0.9-1.1); Prothrombin Time 19.3 sec (11.9-14.5)
[2020-06-29] MEDS ORDERED: IOPAMIDOL 100 ML BOTTLE IV ONE (10:48)
[2020-06-29] MEDS ORDERED: HYDROmorphone 0.5 MG/0.5 ML SYRINGE IV PRN (10:48)
[2020-06-29] MEDS: oxyCODONE HCL 5 MG TABLET PO PRN (14:29)
[2020-06-29] MEDS ORDERED: ACETAMINOPHEN 650 MG/65 ML BAG IV PRN (17:15)
[2020-06-29] MEDS ORDERED: ALPRAZolam 0.5 MG TABLET PO SCH (21:00)
[2020-06-30] MEDS: oxyCODONE HCL 5 MG TABLET PO PRN ×2 (01:06→05:53)
[2020-06-30 06:48] LABS: Basophils # (Auto) 0.01 K/mcL (0.00-0.20); Basophils % (Auto) 0.1 % (0.0-2.0); Eosinophils # (Auto) 0 K/mcL (0.00-0.70); Eosinophils % (Auto) 0 % (0.0-7.0); Hematocrit 35.9 % (36.0-48.0); Hemoglobin 11.5 g/dL (12.0-15.0); Lymphocytes # (Auto) 0.58 K/mcL (1.50-4.80); Mean Cell Volume 96.8 fL (80.0-100.0); Mean Platelet Volume 11.2 fL (7.4-10.4); Monocytes # (Auto) 0.34 K/mcL (0.10-0.90); Monocytes % (Auto) 3.5 % (1.0-12.0); Neutrophils % (Auto) 90.4 % (38.0-78.0); Platelet Count 162 K/mcL (140-440); RBC 3.71 M/mcL (4.00-5.20); Red Cell Distribution Width 13.4 % (11.5-14.5); WBC 9.7 K/mcL (4.5-11.0)
[2020-06-30 07:15] LABS: ALT/SGPT 24 U/L (<40); AST/SGOT 26 U/L (<32); Albumin 3.4 gm/dL (3.2-5.2); Albumin/Globulin Ratio 1.1 (1.0-2.3); Alkaline Phosphatase 90 U/L (39-117); Bilirubin,Direct < 0.2 mg/dL (<0.3); Bilirubin,Total 0.5 mg/dL (0.1-1.0); Blood Urea Nitrogen 18 mg/dL (8-23); Calcium 9.2 mg/dL (8.6-10.4); Carbon Dioxide 25 mmol/L (22-30); Chloride 101 mmol/L (96-108); Globulin 3.2 gm/dL (2.2-3.7); Glomerular Filtration Rate 51; Glucose 153 mg/dL (70-105); Lactate Dehydrogenase 361 U/L (135-225); Triglycerides 92 mg/dL (<150)
[2020-06-30] MEDS ORDERED: LEVOTHYROXINE 88 MCG TABLET PO SCH (07:30)
[2020-06-30] MEDS ORDERED: TIMOLOL 0.25% OPHTH DROPS BOTTLE 5ML OU SCH (09:00)
[2020-06-30] MEDS: MEROPENEM 1 GM in 0.9 % SODIUM CHLORIDE 100 ML IV SCH (11:07)
--- NOTE | 2020-06-30 13:05 | Discharge Summary ---
Discharge Provider Provider Patient information: Note initiated : 06/30/20 at 1:04 pm Service Date, if different from initiated Date: [] Patient: Ameena Ignacio 85 y/o F admitted on 06/28/20 for Abd pain. Chief Complaint: [] Date of admission: 06/28/20 12:43 Discharge date: 06/30/20 Primary care physician: Rashard Abdi Admitting clinician: Luis Gonzalez Attending physician on admission: Luis Gonzalez Consults: 06/28/20 Consult to Physician [CONS] Stat Comment: Consulting Provider: Luis Gonzalez Reason For Exam: Physician to Consult Attending physician on discharge: Luis Gonzalez Discharging clinician: Luis Gonzalez COURSE Time Spent with Patient Time attestation: Total time spent providing and/or coordinating discharge services: Physical Examination Vital Signs Vital signs: Temp Pulse Resp BP Pulse Ox 97.8 F 64 16 121/60 94 06/30/20 12:00 06/30/20 12:00 06/30/20 12:00 06/30/20 12:00 06/30/20 12:00 Discharge Plan Patient/Caregiver Discharge Instructions Prescriptions: No Action levothyroxine 88 MCG tablet 88 mcg PO DAILY RF: 0 warfarin 5 MG tablet 2.5 mg PO DAILY RF: 0 docusate sodium 100 MG capsule 100 mg PO DAILY RF: 0 omeprazole 20 MG capsule 20 mg PO ACB RF: 0 lisinopril 2.5 MG tablet 2.5 mg PO HS RF: 0 cholecalciferol (vitamin D3) 5,000 UNIT capsule 5,000 unit PO DAILY RF: 0 cifvjgoroj-kwhcijcsvfnaq-ikmw 1 EACH capsule 1 tab PO HS RF: 0 acetaminophen 500 MG tablet 1,000 mg PO DAILY RF: 0 calcium carbonate 600 MG tablet 600 mg PO DAILY RF: 0 atorvastatin 20 MG tablet 20 mg PO DAILY RF: 0 potassium chloride 10 MEQ tablet 10 meq PO DAILY@1200 RF: 0 timolol 5 ML drops 15 ml OP DAILY RF: 0 latanoprost (PF) 7.5 ML drops 1 drp ophthalmic (eye) HS RF: 0 alprazolam 0.5 MG tablet 0.5 mg PO HS Qty: 6 RF: 0 Follow Up Plan Follow up with: Rashard Abdi MD [Primary Care Provider] - Prognosis: Fair Pending Pending Pending: Resuscitation Status Do Not Resuscitate Diet Regular Diet Start TueJun 30 0800 Alprazolam (Xanax) 0.5 mg PO HS ART Last Admin: 06/29/20 21:01 Dose: 0.5 mg Documented by: NEREIDA Meropenem 1 gm/ Sodium (Chloride) 100 mls @ 100 mls/hr IV Q12H ART; Protocol Last Admin: 06/30/20 11:07 Dose: 100 mls/hr Documented by: Infusion: 06/29/20 22:15 Dose: 0 mls/hr Documented by: Admin: 06/29/20 21:00 Dose: 100 mls/hr Documented by: NEREIDA Acetaminophen (Ofirmev) 650 mg in 65 mls @ 130 mls/hr IV Q6HP PRN; Protocol PRN Reason: PAIN/FEVER > 101 Last Infusion: 06/29/20 18:00 Dose: 0 mls/hr Documented by: Admin: 06/29/20 17:29 Dose: 130 mls/hr Documented by: SARAH Levothyroxine Sodium (Synthroid) 88 mcg PO ACB ART Last Admin: 06/30/20 07:00 Dose: 88 mcg Documented by: LES Oxycodone HCl (Roxicodone) 5 mg PO Q4HP PRN; Protocol PRN Reason: Per Pain Protocol Last Admin: 06/30/20 05:53 Dose: 5 mg Documented by: Admin: 06/30/20 01:06 Dose: 5 mg Documented by: Admin: 06/29/20 14:29 Dose: 5 mg Documented by: SARAH Timolol Maleate (Timoptic 0.25% Ophth Drops) 1 gtt OU DAILY [facility] Last Admin: 06/30/20 11:07 Dose: Not Given Documented by: LES Shift Summary 06/30/20 04:44 Shift Summary by Chyna Lennon Pt AOX1, the previous night she was AOX3-4. Bed alarm had to be placed. Up with assist to BSC with 1 assist/GB/FWW. Has 3 lapsites to abdomen covered with gauze and tegaderm with shadow drainage. Patient received oxycodone 5mg X 1 for pain during the night and had no complaint of pain this morning. Patient did remember she was in the hospital this morning but couldn't tell my why or that she had surgery. VSS on RA. Will update at bedside. Initialized on 06/30/20 04:44 - END OF NOTE
--- NOTE | 2020-06-30 13:11 | Discharge Summary ---
Discharge Provider Provider Patient information: Note initiated : 06/30/20 at 1:06 pm Service Date, if different from initiated Date: [] Patient: Ameena Ignacio 85 y/o F admitted on 06/28/20 for Abd pain. Chief Complaint: [] Date of admission: 06/28/20 12:43 Discharge date: 06/30/20 Primary care physician: Rashard Abdi Admitting clinician: Luis Gonzalez Attending physician on admission: Luis Gonzalez Consults: 06/28/20 Consult to Physician [CONS] Stat Comment: Consulting Provider: Luis Gonzalez Reason For Exam: Physician to Consult Attending physician on discharge: Chyna Gonzalez Discharging clinician: Luis Gonzalez COURSE Hospital Course Hospital course: 85-year-old female was admitted with about a 12 hour history of diffuse lower abdominal pain that localized to the right lower quadrant. She was seen in the emergency room and was noted to have acute appendicitis. Patient was on warfarin and had an elevated INR. It took excess time to obtain fresh frozen plasma and have it infused. She received 2 units of fresh frozen plasma and vitamin K subcutaneously. She had laparoscopic appendectomy on yesterday. The surgery proceeded uneventfully. She is doing well at this time. Her white blood count is 9.7, hemoglobin 11.5, hematocrit 35.9. She is doing well at this time and is tolerating diet. Her pain is well controlled. Patient is stable for discharge home. Discharge diagnosis: acute appendicitis Secondary discharge diagnosis: chronic anticoagulant therapy. History of atrial fibrillation. History of mitral valve replacement Reason for admission: .acute appendicitis Procedures: laparoscopic appendectomy Pertinent studies/significant findings: CT of abdomen and pelvis with IV contrast Time Spent with Patient Time attestation: Total time spent providing and/or coordinating discharge services: Physical Examination Vital Signs Vital signs: Temp Pulse Resp BP Pulse Ox 97.8 F 64 16 121/60 94 06/30/20 12:00 06/30/20 12:00 06/30/20 12:00 06/30/20 12:00 06/30/20 12:00 General physical appearance General physical exam: well developed, well nourished, no distress and moderate pain (hypogastric limb and right lower quadrant) Eyes Eye exam: PERRL and normal ocular movement ENT ENT exam: normal pinna, no congestion and other (normal teeth and gums) Head Head exam IM: Present atraumatic, normal inspection and normocephalic Neck Neck exam: no masses, no bruits, trachea midline, no lymphadenopathy and no venous distension Cardiovascular Cardiovascular exam IM: Present irregular rhythm, +S1, +S2 and systolic murmur Respiratory Respiratory exam: normal expansion, normal respiratory effort, clear to auscultation and other Abdomen Abdomen: Present soft and tender (tenderness to palpation in the hypogastrium and right lower quadrant ) Integumentary Integumentary: Present no rash, no growths, no abnormal pigmentation and other Neurologic Neurologic: Present normal sensation and memory loss Psychiatric Psychiatric: Present oriented to time, oriented to person, oriented to place and speech is normal Discharge Plan Patient/Caregiver Discharge Instructions Activity: increase activity as tolerated and resume usual activities as tolerated Diet: Regular Diet Prescriptions: Continued levothyroxine 88 MCG tablet 88 mcg PO DAILY RF: 0 warfarin 5 MG tablet 2.5 mg PO DAILY RF: 0 docusate sodium 100 MG capsule 100 mg PO DAILY RF: 0 omeprazole 20 MG capsule 20 mg PO ACB RF: 0 lisinopril 2.5 MG tablet 2.5 mg PO HS RF: 0 cholecalciferol (vitamin D3) 5,000 UNIT capsule 5,000 unit PO DAILY RF: 0 uitjqevale-oevctppyvztuz-tdll 1 EACH capsule 1 tab PO HS RF: 0 acetaminophen 500 MG tablet 1,000 mg PO DAILY RF: 0 calcium carbonate 600 MG tablet 600 mg PO DAILY RF: 0 atorvastatin 20 MG tablet 20 mg PO DAILY RF: 0 potassium chloride 10 MEQ tablet 10 meq PO DAILY@1200 RF: 0 timolol 5 ML drops 15 ml OP DAILY RF: 0 latanoprost (PF) 7.5 ML drops 1 drp ophthalmic (eye) HS RF: 0 alprazolam 0.5 MG tablet 0.5 mg PO HS Qty: 6 RF: 0 Follow Up Plan Follow up with: Luis Gonzalez MD [Physician] - (follow-up appointment in the office in 2 weeks) Rashard Abdi MD [Primary Care Provider] - Patient Disposition: Home, Self-Care Prognosis: Good Rehab Potential: Good I certify that the patient requires SNF services: No Overall status at discharge: patient is progressing back to baseline Discharge Orders: Discharge Order (Routine); Ordered 06/30/20 Ordered By: Luis Gonzalez Pending Pending Pending: Resuscitation Status Do Not Resuscitate Diet Regular Diet Start TueJun 30 0800 Alprazolam (Xanax) 0.5 mg PO HS ART Last Admin: 06/29/20 21:01 Dose: 0.5 mg Documented by: NEREIDA Meropenem 1 gm/ Sodium (Chloride) 100 mls @ 100 mls/hr IV Q12H ART; Protocol Last Admin: 06/30/20 11:07 Dose: 100 mls/hr Documented by: Infusion: 06/29/20 22:15 Dose: 0 mls/hr Documented by: Admin: 06/29/20 21:00 Dose: 100 mls/hr Documented by: NEREIDA Acetaminophen (Ofirmev) 650 mg in 65 mls @ 130 mls/hr IV Q6HP PRN; Protocol PRN Reason: PAIN/FEVER > 101 Last Infusion: 06/29/20 18:00 Dose: 0 mls/hr Documented by: Admin: 06/29/20 17:29 Dose: 130 mls/hr Documented by: SARAH Levothyroxine Sodium (Synthroid) 88 mcg PO ACB ART Last Admin: 06/30/20 07:00 Dose: 88 mcg Documented by: LES Oxycodone HCl (Roxicodone) 5 mg PO Q4HP PRN; Protocol PRN Reason: Per Pain Protocol Last Admin: 06/30/20 05:53 Dose: 5 mg Documented by: Admin: 06/30/20 01:06 Dose: 5 mg Documented by: Admin: 06/29/20 14:29 Dose: 5 mg Documented by: SARAH Timolol Maleate (Timoptic 0.25% Ophth Drops) 1 gtt OU DAILY ART Last Admin: 06/30/20 11:07 Dose: Not Given Documented by: LES Shift Summary 06/30/20 04:44 Shift Summary by Chyna Lennon Pt AOX1, the previous night she was AOX3-4. Bed alarm had to be placed. Up with assist to BSC with 1 assist/GB/FWW. Has 3 lapsites to abdomen covered with gauze and tegaderm with shadow drainage. Patient received oxycodone 5mg X 1 for pain during the night and had no complaint of pain this morning. Patient did remember she was in the hospital this morning but couldn't tell my why or that she had surgery. VSS on RA. Will update at bedside. Initialized on 06/30/20 04:44 - END OF NOTE
--- NOTE | 2020-07-01 12:32 | Surgical Pathology Report ---
Histology Microscopic Diagnosis Specimen A- APPENDIX, APPENDECTOMY: -- NECROTIZING ACUTE APPENDICITIS WITH SEROSITIS. (EBD:sln) Procedural Impression Appendicitis. Gross Description Received in formalin labeled with the patient information and designated as appendix, is a 6.3 cm in length by up to 1.3 cm in diameter tang-evans appendix with up to 1.2 cm of attached yellow-evans adipose tissue. The exterior of the specimen is covered with tang evans exudate and the proximal margin is closed with a staple line. The specimen is sectioned with licensing representative portions submitted in one cassette with the most proximal section inked black. (KGW:sln) Electronically Signed Sola Clark MD, FCAP Electronically Signed 07/01/2020 12:31 PM
--- NOTE | 2020-07-29 10:33 | Operative Note ---
DATE OF OPERATION: 06/29/2020 PREOPERATIVE DIAGNOSIS: Acute appendicitis. POSTOPERATIVE DIAGNOSIS: Acute appendicitis. PROCEDURE PERFORMED: Laparoscopic appendectomy. FINDINGS: Acute suppurative appendicitis. SURGEON: Luis Gonzalez M.D. DESCRIPTION OF PROCEDURE: Under general anesthesia, the patient's abdomen was prepped and draped in the sterile field. Supraumbilical incision was made. A Veress needle was inserted. Abdomen was insufflated with 2 liters of CO2. A 12 mm port was placed. Laparoscope was placed. Under videoscopic guidance, a 5 mm port was placed in the suprapubic midline and a 12 mm port in the left lower quadrant. The patient was positioned in deep Trendelenburg position and rotated to the left. The appendix was located medially and extended into the pelvis. It was acute suppurative and inflamed, but there was no evidence of significant pus or abscess. The base of the appendix was grasped and a window was made in the mesoappendix at the base. The base of the appendix was transected using an Endo ANABELLA stapler. Mesoappendix was dissected and transected using the Endo ANABELLA stapler. The appendix was placed in an Endopouch and retrieved. Irrigation was carried out. No drain was needed. CO2 was allowed to escape from the abdomen and the ports were removed. The fascia at the umbilicus was closed with interrupted 0 Vicryl. Skin incisions were closed with chun. The patient tolerated the procedure well. Tegaderm dressings were placed. She was awakened, transferred to a bed and taken to the postanesthetic care unit in stable, satisfactory condition. LCS:raffi Job ID: [id number] Doc ID: [id number] Luis Gonzalez M.D.
== END 2020-06-30 14:11 | disposition home or self-care (01) ==
LOC: ED 07:57 → MEDSUROUT 12:33 → MEDSUR 12:33
PROVIDERS: ADMIT Family Medicine Adult Medicine; ATTEND Family Medicine Adult Medicine

== ENCOUNTER 2020-11-08 08:52 | Inpatient (IN) ==
[2020-11-08] MEDS ORDERED: 0.9 % SODIUM CHLORIDE 1,000 ML IV ONE (08:58)
--- NOTE | 2020-11-08 09:21 | Emergency Department Note ---
Fever HPI General Chief Complaint: Fever Stated Complaint: Cough Time Seen by Provider: 11/08/20 08:57 Source: patient Mode of arrival: wheelchair Limitations: no limitations History of Present Illness HPI Narrative: 85-year-old female presents with chief complaint of fever this morning. has also had some chills and coughing. Cough is productive of phlegm. Patient denies shortness of breath denies any chest pain. Denies any loss of taste or smell denies any vomiting or diarrhea. Denies any urinary frequency urgency dysuria. Patient has had both of her COVID-19 vaccines. Patient denies any recent travel or any ill contacts. 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 Related Data Home Medications Medication Instructions Recorded Confirmed acetaminophen 1,000 mg PO DAILY 09/22/19 07/15/20 atorvastatin 20 mg PO DAILY 09/22/19 07/15/20 [id number]-[id number] 1 tab PO HS 09/22/19 07/15/20 calcium carbonate 600 mg PO DAILY 09/22/19 07/15/20 cholecalciferol (vitamin D3) 5,000 unit PO DAILY 09/22/19 07/15/20 docusate sodium 100 mg PO DAILY 09/22/19 07/15/20 latanoprost (PF) 1 drp OPHTHALMIC (EYE) HS 09/22/19 07/15/20 levothyroxine 88 mcg PO DAILY 09/22/19 07/15/20 lisinopril 2.5 mg PO HS 09/22/19 07/15/20 omeprazole 20 mg PO ACB 09/22/19 07/15/20 potassium chloride 10 meq PO DAILY@1200 09/22/19 07/15/20 timolol 15 ml OP DAILY 09/22/19 07/15/20 warfarin 2.5 mg PO DAILY 09/22/19 07/15/20 amiodarone 200 mg PO QDAY 11/08/20 11/08/20 amoxicillin 500 mg PO TID 11/08/20 11/08/20 benzonatate 200 mg PO TID 11/08/20 11/08/20 hyoscyamine sulfate 0.125 mg PO QID 11/08/20 11/08/20 Previous Rx's Medication Instructions Recorded alprazolam 0.5 mg PO HS #6 tab 10/01/19 Allergies Allergy/AdvReac Type Severity Reaction Status Date / Time alendronate sodium Allergy Mild Unknown Verified 07/15/20 10:08 [From Fosamax] clindamycin Allergy Mild Hives Verified 07/15/20 10:08 fluoxetine Allergy Mild Hives Verified 07/15/20 10:08 Penicillins Allergy Mild Hives Verified 07/15/20 10:08 phenazopyridine Allergy Mild Hives Verified 07/15/20 10:08 rofecoxib Allergy Mild Unknown Verified 07/15/20 10:08 Sulfa (Sulfonamide Allergy Mild Hives Verified 07/15/20 10:08 Antibiotics) adhesive tape AdvReac Mild Blister Verified 07/15/20 10:08 Review of Systems ROS ROS Narrative: Narrative: All systems ED: reviewed and negative except as stated. Constitutional: Reports fever and chills; Denies sweats Eyes: Denies vision change ENT ED: Denies throat pain, congestion and rhinorrhea Cardiovascular: Denies chest pain Respiratory: Reports cough; Denies shortness of breath Gastrointestinal: Denies abdominal pain, vomiting and diarrhea Musculoskeletal: Denies back pain and joint pain Integumentary: Denies rash Neurological: Denies headache and dizziness Psychiatric: Denies anxiety, suicidal thoughts and homicidal thoughts Endocrine: Denies polydipsia and polyuria Hematological/Lymphatic: Denies easy bleeding and easy bruising PFSH Narrative Patient History Narrative: Narrative: Medical/Surgical/Family History All Active Problems (Updated 11/08/20 @ 11:02 by Humble Hoff MD) Bilateral pneumonia (Acute) Hypoxia (Acute) Severe sepsis (Acute) Acute appendicitis (Acute) Prolonged Q-T interval on ECG (Acute) Abnormal laboratory test (Acute) RLQ abdominal pain (Acute) Nausea & vomiting (Acute) Acute URI (Acute) 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) 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 (Chronic) Palpitations (Acute) Atrial fibrillation (Chronic) Medical History (Updated 11/08/20 @ 11:02 by Humble Hoff MD) Atrial fibrillation 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 Pneumonia Surgical History History of cataract surgery History of laparoscopic appendectomy 06/29/2020 History of mitral valve replacement with 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 Family History Mother Cancer Social History Smoking Status: Never smoker Alcohol Intake Frequency: does not drink Substance Use: does not use Exam Narrative Narrative: Constitutional: Awake alert no acute distress well-nourished well- developed HEENT: Normocephalic, atraumatic PERRLA, EOMI, oral mucosa moist, pharynx clear, Neck: Supple, no lymphadenopathy, no JVD Lungs: Breathing unlabored, scattered rhonchi Cardiac: Regular rate and rhythm, normal distal pulses, GI: Soft nontender nondistended no guarding no rebound Musculoskeletal: No tenderness, no deformities, no edema, full range of motion Neuro: Awake alert, cranial nerves II through XII grossly intact, no focal motor or sensory deficits Psychiatric: Normal mood and affect Skin: Warm dry no rash, cap refill less than 2 seconds General Limitations: no limitations Course Consultations Consultation #1: Case discussed with hospitalist, Dr. Johnson who agrees to see and admit patient. Time: 13:05 Vital Signs Vital signs: Vital Signs Temperature 102.3 F H 11/08/20 08:53 Pulse Rate 95 H 11/08/20 08:53 Respiratory Rate 18 11/08/20 08:53 Blood Pressure 141/75 11/08/20 08:53 Pulse Oximetry (%) 89 L 11/08/20 08:53 Temperature 97.8 F 11/08/20 11:04 Pulse Rate 58 L 11/08/20 13:03 Respiratory Rate 17 11/08/20 13:03 Blood Pressure 108/66 11/08/20 13:01 Pulse Oximetry (%) 98 11/08/20 13:03 [facility] Narrative Medical decision making narrative: 85-year-old female presents with fever cough and hypoxia. Patient actually denied any chest pain or shortness of breath. Chest x-ray shows bilateral infiltrates consistent with pneumonia. CBC was normal, lactate was elevated. Patient given IV Rocephin and Zithromax after blood cultures obtained. COVID-19 and influenza swab were negative. Patient did not meet criteria for septic shock did not have a mean arterial pressure less than 65 or a lactate over 4. Patient will be admitted for further evaluation treatment. Case discussed with hospitalist, Dr. Johnson who agrees to see the patient. Differential Diagnosis Differential Diagnosis: COVID-19 infection, pneumonia, sepsis, viral syndrome Lab Data Result diagrams: 11/08/20 09:18 11/08/20 09:18 Labs: Lab Results 11/08/20 11/08/20 11/08/20 Range/Units 09:18 09:18 09:18 WBC (4.5-11.0) K/mcL RBC (4.00-5.20) M/mcL Hgb (12.0-15.0) g/dL Hct (36.0-48.0) % MCV (80.0-100.0) fL MCH (26.0-34.0) pg MCHC (31.0-36.0) g/dL RDW (11.5-14.5) % Plt Count (140-440) K/mcL MPV (7.4-10.4) fL Seg Neutrophils % (38-78) % Band Neutrophils % (0-10) % Lymphocytes % (15-49) % Monocytes % (Manual) (1-12) % Eosinophils % (Manual) (0-7) % Basophils % (Manual) (0-2) % Platelet Estimate (Normal) RBC Morphology (Normal) VBG Lactic Acid 2.4 H (0.5-2.0) mmol/L Sodium 132 L (133-145) mmol/L Potassium 4.0 (3.3-5.1) mmol/L Chloride 100 (96-108) mmol/L Carbon Dioxide 25 (22-30) mmol/L Anion Gap 7.0 L (8.0-16.0) BUN 21 (8-23) mg/dL Creatinine 1.2 H (0.6-1.1) mg/dL GFR Calculation 40 Glucose 191 H (70-105) mg/dL Calcium 9.1 (8.6-10.4) mg/dL Total Bilirubin 0.4 (0.1-1.0) mg/dL AST 44 H (<32) U/L ALT 35 (<40) U/L Alkaline Phosphatase 105 (39-117) U/L Total Protein 6.9 (5.9-8.4) gm/dL Albumin 3.1 L (3.2-5.2) gm/dL Globulin 3.8 H (2.2-3.7) gm/dL Albumin/Globulin Ratio 0.8 L (1.0-2.3) Procalcitonin 0.14 H (<0.10) ng/mL 11/08/20 Range/Units 09:18 WBC 8.9 (4.5-11.0) K/mcL RBC 4.12 (4.00-5.20) M/mcL Hgb 12.4 (12.0-15.0) g/dL Hct 38.8 (36.0-48.0) % MCV 94.2 (80.0-100.0) fL MCH 30.1 (26.0-34.0) pg MCHC 32.0 (31.0-36.0) g/dL RDW 13.8 (11.5-14.5) % Plt Count 289 (140-440) K/mcL MPV 10.1 (7.4-10.4) fL Seg Neutrophils % 73 (38-78) % Band Neutrophils % 10 (0-10) % Lymphocytes % 7 L (15-49) % Monocytes % (Manual) 3 (1-12) % Eosinophils % (Manual) 5 (0-7) % Basophils % (Manual) 2 (0-2) % Platelet Estimate Normal (Normal) RBC Morphology Normal (Normal) VBG Lactic Acid (0.5-2.0) mmol/L Sodium (133-145) mmol/L Potassium (3.3-5.1) mmol/L Chloride (96-108) mmol/L Carbon Dioxide (22-30) mmol/L Anion Gap (8.0-16.0) BUN (8-23) mg/dL Creatinine (0.6-1.1) mg/dL GFR Calculation Glucose (70-105) mg/dL Calcium (8.6-10.4) mg/dL Total Bilirubin (0.1-1.0) mg/dL AST (<32) U/L ALT (<40) U/L Alkaline Phosphatase (39-117) U/L Total Protein (5.9-8.4) gm/dL Albumin (3.2-5.2) gm/dL Globulin (2.2-3.7) gm/dL Albumin/Globulin Ratio (1.0-2.3) Procalcitonin (<0.10) ng/mL ED POC Tests ED POC Tests: RADHA - Influenza A Negative RADHA - Influenza B Negative [facility] - SARS Antigen Negative Discharge Plan Patient/Caregiver Discharge Instructions Pt seen by CERTIFIED NURSE MIDWIFE/PA only: No Clinical Impression: Bilateral pneumonia, Hypoxia, Severe sepsis Patient Disposition: Xfer As Inpt ([facility]) Condition: Fair Follow up with: Rashard Abdi MD [Primary Care Provider] - Prescriptions: No Action levothyroxine 88 MCG tablet 88 mcg PO DAILY RF: 0 warfarin 5 MG tablet 2.7 mg PO DAILY RF: 0 docusate sodium 100 MG capsule 100 mg PO DAILY RF: 0 omeprazole 20 MG capsule 20 mg PO ACB RF: 0 lisinopril 2.5 MG tablet 2.5 mg PO HS RF: 0 cholecalciferol (vitamin D3) 5,000 UNIT capsule 5,000 unit PO DAILY RF: 0 [id number]-yqntxsoeesccl-ikzb 1 EACH capsule 1 tab PO HS RF: 0 acetaminophen 500 MG tablet 1,000 mg PO DAILY RF: 0 calcium carbonate 600 MG tablet 600 mg PO DAILY RF: 0 atorvastatin 20 MG tablet 20 mg PO DAILY RF: 0 potassium chloride 10 MEQ tablet 10 meq PO DAILY@1200 RF: 0 timolol 5 ML drops 15 ml OP DAILY RF: 0 latanoprost (PF) 7.5 ML drops 1 drp ophthalmic (eye) HS RF: 0 alprazolam 0.5 MG tablet 0.5 mg PO HS Qty: 6 RF: 0 benzonatate 200 mg Capsule 200 mg PO TID RF: 0 amoxicillin 500 mg Capsule 500 mg PO TID RF: 0 amiodarone 200 mg Tablet 200 mg PO QDAY RF: 0 hyoscyamine sulfate 0.125 mg Tablet 0.125 mg PO QID RF: 0
[2020-11-08] MEDS ORDERED: ACETAMINOPHEN 325 MG TABLET PO ONE (09:22)
[2020-11-08] MEDS ORDERED: AZITHROMYCIN 500 MG in DEXTROSE 5% IN WATER 250 ML IV ONE (09:32)
[2020-11-08] MEDS ORDERED: cefTRIAXone 1 GM VIAL IV ONE (09:32)
--- NOTE | 2020-11-08 09:53 | XRay Report ---
HISTORY: Fever and cough FINDINGS: There are severe alveolar opacities throughout both lungs. Lung volume is normal. No pleural effusion is present. The heart is mildly enlarged but magnified by portable technique. The patient has a prosthetic aortic valve. There is also a heart monitor device overlying the sternum. Comparison with the prior exam from 06/28/20 shows the alveolar opacities were present at that time but have since become worse. IMPRESSION: Worsening infiltrates in both lungs which could be due to pneumonia or pulmonary edema Interpreted and Authenticated by: Jordi Ortiz 11/08/20
[2020-11-08 10:07] LABS: Hematocrit 38.8 % (36.0-48.0); Hemoglobin 12.4 g/dL (12.0-15.0); Mean Cell Volume 94.2 fL (80.0-100.0); Mean Platelet Volume 10.1 fL (7.4-10.4); Platelet Count 289 K/mcL (140-440); RBC 4.12 M/mcL (4.00-5.20); Red Cell Distribution Width 13.8 % (11.5-14.5); WBC 8.9 K/mcL (4.5-11.0)
[2020-11-08 10:36] LABS: ALT/SGPT 35 U/L (<40); AST/SGOT 44 U/L (<32); Albumin 3.1 gm/dL (3.2-5.2); Albumin/Globulin Ratio 0.8 (1.0-2.3); Alkaline Phosphatase 105 U/L (39-117); Bilirubin,Total 0.4 mg/dL (0.1-1.0); Blood Urea Nitrogen 21 mg/dL (8-23); Calcium 9.1 mg/dL (8.6-10.4); Carbon Dioxide 25 mmol/L (22-30); Chloride 100 mmol/L (96-108); Globulin 3.8 gm/dL (2.2-3.7); Glomerular Filtration Rate 40; Glucose 191 mg/dL (70-105)
[2020-11-08 10:53] LABS: Band Neutrophils % 10 % (0-10); Basophils % (Manual) 2 % (0-2); Eosinophils % (Manual) 5 % (0-7); Lymphocytes % 7 % (15-49); Monocytes % (Manual) 3 % (1-12); Platelet Estimate NORMAL (Normal); RBC Morphology NORMAL (Normal); Segmented Neutrophils % 73 % (38-78)
--- NOTE | 2020-11-08 13:20 | Internal Med History&Physical ---
HPI History of Present Illness Patient information: Note initiated : 11/08/20 at 1:17 pm Service Date, if different from initiated Date: [] Patient: Ameena Ignacio a 85 y/o F admitted on for Cough. Chief Complaint: [] History of present illness: Ms. Ignacio is a 85 year old F Today with cough and fever. Presents today with cough and fever. Patient states she had a cough for the past week. Today she developed a fever. In the ED was 102. She saw her primary care doctor last week and got some cough medicine. She does have a history of some esophageal issues and swallowing. She also been increasingly tired. Work-up in the ED showed a chest x-ray with bilateral infiltrates which were worse from June. Her oxygenation was 89% on room air. Lactic acid was 2.4. Denies chest pain. Does denies shortness of breath. Complains of fevers and some chills. Review of Systems: Many 10 point review of system reviewed negative denies headache/fever/chills/nausea/vomiting/chest or abdominal pain/diarrhea. 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) halfway (current) use of anticoagulants (Chronic) Palpitations (Acute) Atrial fibrillation (Chronic) Medical History (Updated 11/08/20 @ 11:02 by Humble Hoff MD) Atrial fibrillation 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 Pneumonia Surgical History History of cataract surgery History of laparoscopic appendectomy 06/29/2020 History of mitral valve replacement with 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 Family History Mother Cancer Social History alcohol intake frequency: does not drink substance use type: does not use MEDS/ALLERGIES Home Medications and Allergies Home Medications Medication Instructions Recorded Confirmed Type acetaminophen 1,000 mg PO DAILY 09/22/19 11/08/20 History atorvastatin 20 mg PO DAILY 09/22/19 07/15/20 History yvqmbfqkhw-ilddrfvqzwxvs-lxvv 1 tab PO HS 09/22/19 07/15/20 History calcium carbonate 600 mg PO DAILY 09/22/19 07/15/20 History cholecalciferol (vitamin D3) 5,000 unit PO DAILY 09/22/19 07/15/20 History docusate sodium 100 mg PO DAILY 09/22/19 07/15/20 History latanoprost (PF) 1 drp OPHTHALMIC (EYE) HS 09/22/19 07/15/20 History levothyroxine 88 mcg PO DAILY 09/22/19 07/15/20 History lisinopril 2.5 mg PO HS 09/22/19 07/15/20 History omeprazole 20 mg PO ACB 09/22/19 07/15/20 History potassium chloride 10 meq PO DAILY@1200 09/22/19 07/15/20 History timolol 15 ml OP DAILY 09/22/19 07/15/20 History warfarin 2.7 mg PO DAILY 09/22/19 11/08/20 History alprazolam 0.5 mg PO HS #6 tab 10/01/19 07/15/20 Rx amiodarone 200 mg PO QDAY 11/08/20 11/08/20 History amoxicillin 500 mg PO TID 11/08/20 11/08/20 History benzonatate 200 mg PO TID 11/08/20 11/08/20 History hyoscyamine sulfate 0.125 mg PO QID 11/08/20 11/08/20 History Allergies Allergy/AdvReac Type Severity Reaction Status Date / Time alendronate sodium Allergy Mild Unknown Verified 07/15/20 10:08 [From Fosamax] clindamycin Allergy Mild Hives Verified 07/15/20 10:08 fluoxetine Allergy Mild Hives Verified 07/15/20 10:08 Penicillins Allergy Mild Hives Verified 07/15/20 10:08 phenazopyridine Allergy Mild Hives Verified 07/15/20 10:08 rofecoxib Allergy Mild Unknown Verified 07/15/20 10:08 Sulfa (Sulfonamide Allergy Mild Hives Verified 07/15/20 10:08 Antibiotics) adhesive tape AdvReac Mild Blister Verified 07/15/20 10:08 EXAM Constitutional Vitals: Temp Pulse Resp BP Pulse Ox 97.8 F 58 L 17 108/66 98 11/08/20 11:04 11/08/20 13:03 11/08/20 13:03 11/08/20 13:01 11/08/20 13:03 Exam: General: Alert, Awake, No acute Distress Eyes/N/T: EOMI, PERRL, dry MM Head/Neck: neck supple, normocephalic atraumatic CV: RRR, No murmurs, normal s1/s2 Pulm: mild b/l rales, diminished, no wheezing/rhonchi/rales Abd: soft, nontender, +BS x4 Ext: no clubbing/cyanosis/edema Neuro: Alert, no focal deficits, moves all extremities, CN 2-12 grossly intact, symmetrical strength b/l upper/lower, sensations intact b/l upper/lower Skin: warm/dry DATA Data Completed and Pending Labs: Labs from last 24 hours 11/08/20 11/08/20 11/08/20 12:50 09:18 09:18 WBC 8.9 RBC 4.12 Hgb 12.4 Hct 38.8 MCV 94.2 MCH 30.1 MCHC 32.0 RDW 13.8 Plt Count 289 MPV 10.1 Seg Neutrophils % 73 Band Neutrophils % 10 Lymphocytes % 7 L Monocytes % (Manual) 3 Eosinophils % (Manual) 5 Basophils % (Manual) 2 Platelet Estimate Normal RBC Morphology Normal VBG Lactic Acid Pending Sodium Potassium Chloride Carbon Dioxide Anion Gap BUN Creatinine GFR Calculation Glucose Calcium Total Bilirubin AST ALT Alkaline Phosphatase Total Protein Albumin Globulin Albumin/Globulin Ratio Procalcitonin 0.14 H 11/08/20 11/08/20 09:18 09:18 WBC RBC Hgb Hct MCV MCH MCHC RDW Plt Count MPV Seg Neutrophils % Band Neutrophils % Lymphocytes % Monocytes % (Manual) Eosinophils % (Manual) Basophils % (Manual) Platelet Estimate RBC Morphology VBG Lactic Acid 2.4 H Sodium 132 L Potassium 4.0 Chloride 100 Carbon Dioxide 25 Anion Gap 7.0 L BUN 21 Creatinine 1.2 H GFR Calculation 40 Glucose 191 H Calcium 9.1 Total Bilirubin 0.4 AST 44 H ALT 35 Alkaline Phosphatase 105 Total Protein 6.9 Albumin 3.1 L Globulin 3.8 H Albumin/Globulin Ratio 0.8 L Procalcitonin A/P Narrative A/P Narrative: A: *PNA: *Acute hypoxic respiratory failure: *Hyponatremia: *A. 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
[2020-11-08] MEDS ORDERED: IPRATROPIUM/ALBUTEROL 3 ML AMPUL.NEB NEB PRN (16:24)
[2020-11-08] MEDS ORDERED: SENNOSIDES 1 TABLET PO PRN (16:24)
[2020-11-08] MEDS ORDERED: POTASSIUM CHLORIDE 20 MEQ TABLET PO PRN ×2 (16:24)
[2020-11-08] MEDS ORDERED: POTASSIUM CHLORIDE 40 MEQ in DEXTROSE 5% IN WATER 500 ML IV PRN (16:24)
[2020-11-08] MEDS ORDERED: POLYETHYLENE GLYCOL 3350 17 GM PACKET PO PRN (16:24)
[2020-11-08] MEDS ORDERED: AZITHROMYCIN 500 MG in DEXTROSE 5% IN WATER 250 ML IV SCH (16:24)
[2020-11-08] MEDS ORDERED: cefTRIAXone 2 GM in DEXTROSE 5% IN WATER 50 ML IV SCH (16:24)
[2020-11-08] MEDS ORDERED: ONDANSETRON 4 MG/2 ML VIAL IV PRN (16:24)
[2020-11-08] MEDS ORDERED: MAGNESIUM SULFATE 2 GM/50 ML BAG IV PRN (16:24)
[2020-11-08 17:34] LABS: C-Reactive Protein 12.1 mg/dL (0.03-0.80)
[2020-11-08] MEDS: 0.9 % SODIUM CHLORIDE 10 ML SYRINGE IV SCH ×2 (17:59→23:08)
[2020-11-08] MEDS ORDERED: IPRATROPIUM/ALBUTEROL 3 ML AMPUL.NEB NEB ONE (19:19)
[2020-11-08] MEDS ORDERED: hydrALAZINE 20 MG/ML VIAL IV PRN (19:46)
[2020-11-08] MEDS ORDERED: ENALAPRILAT 1.25 MG/ML VIAL IV PRN (19:46)
[2020-11-08] MEDS: ACETAMINOPHEN 325 MG TABLET PO PRN (19:57)
[2020-11-08 20:03] LABS: POC INR 3.2 (0.8-1.2); POC Pro Time 36.3 sec (11.9-14.5)
[2020-11-08] MEDS: LISINOPRIL 2.5 MG TABLET PO SCH (20:19)
[2020-11-08] MEDS: DOCUSATE SODIUM 100 MG CAPSULE PO SCH (20:19)
[2020-11-09] MEDS: ACETAMINOPHEN 325 MG TABLET PO PRN ×3 (04:45→19:34)
[2020-11-09] MEDS: 0.9 % SODIUM CHLORIDE 10 ML SYRINGE IV SCH ×3 (04:46→21:12)
[2020-11-09 05:58] LABS: Appearance,Urine CLEAR (Clear); Bacteria,Urine 0 /hpf (0); Bilirubin,Urine Negative (Negative); Color,Urine YELLOW; Culture Indicated,Urine No; Glucose,Urine (UA) Negative (Negative); Ketones,Urine Negative (Negative); Leukocyte Esterase,Urine Negative /ug (Negative); Nitrate,Urine Negative (Negative); Protein,Urine 30 mg/dL (Negative); Specific Gravity,Urine 1.018 (1.000-1.035); Urine Blood Negative (Negative); Urine RBC < 1 /hpf (0-3); Urine Squamous Epithelial Cell 1 /hpf (0-4); Urine WBC 1 /hpf (0-4); Urobilinogen,Urine Negative
--- NOTE | 2020-11-09 06:53 | Internal Med Progress Note ---
SUBJECTIVE Subjective Patient information: Note initiated : 11/09/20 at 6:50 am Service Date, if different from initiated Date: [] Patient: Ameena Ignacio 85 y/o F admitted on 11/08/20 for Cough. Chief Complaint: [] Interval history: History of present illness: Ms. Ignacio is a 85 year old F Today with cough and fever. Presents today with cough and fever. Patient states she had a cough for the past week. Today she developed a fever. In the ED was 102. She saw her primary care doctor last week and got some cough medicine. She does have a history of some esophageal issues and swallowing. She also been increasingly tired. Work-up in the ED showed a chest x-ray with bilateral infiltrates which were worse from June. Her oxygenation was 89% on room air. Lactic acid was 2.4. Denies chest pain. Does denies shortness of breath. Complains of fevers and some chills. 11/09 Shortness of breath and cough improving. Did have mild headache earlier. Review of Systems: denies fever/chills/nausea/vomiting/chest or abdominal pain/diarrhea. Otherwise see above. Constitutional Vitals: Vital Signs Temp Pulse Resp BP Pulse Ox 99.7 F H 70 20 155/73 96 11/09/20 04:45 11/09/20 04:00 11/09/20 04:00 11/09/20 04:00 11/09/20 04:00 Period Temp Pulse Resp BP Sys/Rogers Pulse Ox Last 24 Hr 97.8 F-102.3 F 54-95 14-25 97-198/46-86 89-99 Intake and Output 11/08/20 11/09/20 11/09/20 21:59 05:59 13:59 Intake Total 250 360 Output Total 300 Balance 250 60 Weight 64.455 kg Intake & Output: Intake & Output 11/08/20 11/09/20 11/09/20 21:59 05:59 13:59 Intake Total 250 360 Output Total 300 Balance 250 60 Weight 64.455 kg Intake: IV 250 Zithromax 500 mg In Dextrose 5% 250 in Water 250 ml @ 250 mls/hr IV ONCE ONE Rx#:[id number] Oral 0 360 Output: Void Amount 300 Other: Urine Appearance Clear Urine Color Dark Yellow Stool Size Large Stool Color Brown Stool Consistency Formed # Voids 1 Exam: General: Alert, Awake, No acute Distress Eyes/N/T: EOMI, Head/Neck: neck supple, CV: RRR, No murmurs, Pulm: left side rhonchi/rales, right clear, no wheezing Abd: soft, nontender, +BS x4 Ext: no clubbing/cyanosis/edema Neuro: Alert, no focal deficits, moves all extremities, Skin: warm/dry OBJ DATA Labs CBC & Chem 7: 11/09/20 05:34 11/09/20 05:34 Labs: Abnormal Lab Results 11/09/20 11/08/20 11/08/20 04:30 19:56 09:18 Lymphocytes % POC PT 36.3 H POC INR 3.2 H VBG Lactic Acid Sodium Anion Gap Creatinine Glucose AST C-Reactive Protein 12.10 H NT-Pro-B Natriuret Pep 1312.0 H Albumin Globulin Albumin/Globulin Ratio Procalcitonin Urine Protein 30 A 11/08/20 11/08/20 11/08/20 09:18 09:18 09:18 Lymphocytes % 7 L POC PT POC INR VBG Lactic Acid 2.4 H Sodium Anion Gap Creatinine Glucose AST C-Reactive Protein NT-Pro-B Natriuret Pep Albumin Globulin Albumin/Globulin Ratio Procalcitonin 0.14 H Urine Protein 11/08/20 09:18 Lymphocytes % POC PT POC INR VBG Lactic Acid Sodium 132 L Anion Gap 7.0 L Creatinine 1.2 H Glucose 191 H AST 44 H C-Reactive Protein NT-Pro-B Natriuret Pep Albumin 3.1 L Globulin 3.8 H Albumin/Globulin Ratio 0.8 L Procalcitonin Urine Protein Meds: Medications Acetaminophen (Acetaminophen 325 Mg Tablet) 650 mg PO Q6HP PRN PRN Reason: PAIN/FEVER > 101 Last Admin: 11/09/20 04:45 Dose: 650 mg Documented by: Albuterol/Ipratropium (Ipratropium/Albuterol 3 Ml Ampul.Neb) 3 ml NEB Q4HP PRN PRN Reason: Shortness Of Breath Last Admin: 11/08/20 19:22 Dose: 3 ml Documented by: Docusate Sodium (Docusate Sodium 100 Mg Capsule) 100 mg PO BID ART Last Admin: 11/08/20 20:19 Dose: 100 mg Documented by: Enalaprilat (Enalaprilat 1.25 Mg/Ml Vial) 0 mg IV Q2HP PRN PRN Reason: Hypertension Hydralazine HCl (Hydralazine 20 Mg/Ml Vial) 0 mg IV Q2HP PRN PRN Reason: Hypertension Potassium Chloride 40 meq/ (Dextrose) 520 mls @ 130 mls/hr IV UD PRN PRN Reason: Potassium < 3 Magnesium Sulfate (Magnesium Sulfate) 2 gm in 50 mls @ 50 mls/hr IV UD PRN PRN Reason: Magnesium </= 1.6 Ceftriaxone Sodium 2 gm/ (Dextrose) 50 mls @ 100 mls/hr IV Q24H [facility]; Protocol Azithromycin 500 mg/ Dextrose 250 mls @ 250 mls/hr IV Q24H [facility]; Protocol Stop: 11/11/20 10:59 Lisinopril (Lisinopril 2.5 Mg Tablet) 2.5 mg PO DAILY [facility] Last Admin: 11/08/20 20:19 Dose: 2.5 mg Documented by: Ondansetron HCl (Ondansetron 4 Mg/2 Ml Vial) 4 mg IV Q4HP PRN PRN Reason: Nausea And Vomiting Pantoprazole Sodium (Pantoprazole 40 Mg Tablet) 40 mg PO QAMAC [facility] Polyethylene Glycol (Polyethylene Glycol 3350 17 Gm Packet) 17 gm PO DAILYP PRN PRN Reason: Constipation Potassium Chloride (Potassium Chloride 20 Meq Tablet) 40 meq PO UD PRN PRN Reason: Potssium is 3-3.5 Potassium Chloride (Potassium Chloride 20 Meq Tablet) 40 meq PO UD PRN PRN Reason: Potassium < 3 Senna (Sennosides 1 Tablet) 2 tab PO DAILYP PRN PRN Reason: Constipation Sodium Chloride (0.9 % Sodium Chloride 10 Ml Syringe) 10 ml IV Q8 [facility] Last Admin: 11/09/20 04:46 Dose: 10 ml Documented by: Warfarin Sodium (Warfarin Per Pharmacy) 1 order PO DAILY@1400 [facility] A/P Narrative A/P Narrative: A: *PNA: -afebrile o/n. strep neg *Acute hypoxic respiratory failure: -on 1L NC *Hyponatremia: improved *A. 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
[2020-11-09] MEDS: PANTOPRAZOLE 40 MG TABLET PO SCH (07:01)
[2020-11-09 07:47] LABS: Eosinophils # (Auto) 0.29 K/mcL (0.00-0.70); Eosinophils % (Auto) 2.8 % (0.0-7.0); Hematocrit 35.9 % (36.0-48.0); Hemoglobin 11.6 g/dL (12.0-15.0); Lymphocytes # (Auto) 0.89 K/mcL (1.50-4.80); Lymphocytes % (Auto) 8.7 % (15.0-49.0); Mean Cell Volume 93.5 fL (80.0-100.0); Mean Corpuscular HGB Conc 32.3 g/dL (31.0-36.0); Mean Platelet Volume 10.2 fL (7.4-10.4); Monocytes # (Auto) 0.71 K/mcL (0.10-0.90); Monocytes % (Auto) 6.9 % (1.0-12.0); Neutrophils % (Auto) 80.6 % (38.0-78.0); Platelet Count 286 K/mcL (140-440); RBC 3.84 M/mcL (4.00-5.20); Red Cell Distribution Width 13.9 % (11.5-14.5); WBC 10.2 K/mcL (4.5-11.0)
[2020-11-09 08:17] LABS: ALT/SGPT 30 U/L (<40); AST/SGOT 37 U/L (<32); Albumin/Globulin Ratio 0.8 (1.0-2.3); Alkaline Phosphatase 96 U/L (39-117); Bilirubin,Direct < 0.2 mg/dL (0-0.3); Bilirubin,Total 0.4 mg/dL (0.1-1.0); Blood Urea Nitrogen 17 mg/dL (8-23); Calcium 8.8 mg/dL (8.6-10.4); Carbon Dioxide 26 mmol/L (22-30); Chloride 103 mmol/L (96-108); Globulin 3.6 gm/dL (2.2-3.7); Glomerular Filtration Rate 57; Glucose 109 mg/dL (70-105); Lactate Dehydrogenase 386 U/L (135-225); Phosphorous 2.7 mg/dL (2.5-4.5); Triglycerides 83 mg/dL (<150); Uric Acid 4.8 mg/dL (2.5-8.0)
[2020-11-09 08:54] LABS: INR 2.6 (0.9-1.1); Prothrombin Time 28.8 sec (11.9-14.5)
[2020-11-09] MEDS: cefTRIAXone 2 GM in DEXTROSE 5% IN WATER 50 ML IV SCH (09:02)
[2020-11-09] MEDS: DOCUSATE SODIUM 100 MG CAPSULE PO SCH ×2 (09:03→21:12)
[2020-11-09] MEDS: LISINOPRIL 2.5 MG TABLET PO SCH (09:03)
[2020-11-09] MEDS: AZITHROMYCIN 500 MG in DEXTROSE 5% IN WATER 250 ML IV SCH (11:02)
--- NOTE | 2020-11-09 12:19 | Discharge Summary ---
Discharge Provider Provider Patient information: Note initiated : 11/09/20 at 12:16 pm Service Date, if different from initiated Date: [] Patient: Ameena Ignacio 85 y/o F admitted on 11/08/20 for Cough. Chief Complaint: [] Date of admission: 11/08/20 14:00 Discharge date: 11/11/20 Primary care physician: Rashard Abdi Consults: 11/08/20 Consult to Physician [CONS] Stat Comment: Consulting Provider: Josafat Johnson Reason For Exam: Physician to Consult Discharge Meds Discharge Medications Home Medications acetaminophen 1,000 mg PO DAILY 09/22/19 [History Confirmed 11/08/20 Last Taken 06/27/20 20:00] warfarin 2.5 mg PO DAILY 09/22/19 [History Confirmed 11/08/20 Last Taken 06/27/20 20:00] Adults Multivitamin 1 tab PO DAILY 11/08/20 [History Confirmed 11/08/20 Last Taken Unknown] alprazolam 1 mg PO QDP PRN 11/08/20 [History Confirmed 11/08/20 Last Taken Unknown] amiodarone 200 mg PO QDAY 11/08/20 [History Confirmed 11/08/20 Last Taken Unknown] benzonatate 200 mg PO TID 11/08/20 [History Confirmed 11/08/20 Last Taken Unknown] cholecalciferol (vitamin D3) [Dialyvite Vitamin D] 5,000 unit PO DAILY 11/08/20 [History Confirmed 11/08/20 Last Taken Unknown] cyanocobalamin (vitamin B-12) 100 mcg PO QDAY 11/08/20 [History Confirmed 11/08/20 Last Taken Unknown] echinacea 400 mg PO DAILY 11/08/20 [History Confirmed 11/08/20 Last Taken Unknown] folic acid 1 mg PO QAM 11/08/20 [History Confirmed 11/08/20 Last Taken Unknown] hyoscyamine sulfate 0.125 mg PO QID 11/08/20 [History Confirmed 11/08/20 Last Taken Unknown] latanoprost 1 drp OPHTHALMIC (EYE) DAILY 11/08/20 [History Confirmed 11/08/20 Last Taken Unknown] lisinopril 2.5 mg PO QDAY 11/08/20 [History Confirmed 11/08/20 Last Taken Unknown] omeprazole 20 mg PO QDAY 11/08/20 [History Confirmed 11/08/20 Last Taken Unknown] potassium chloride 10 meq PO QDAY 11/08/20 [History Confirmed 11/08/20 Last Taken Unknown] timolol 1 drp OPHTHALMIC (EYE) QDAY 11/08/20 [History Confirmed 11/08/20 Last Taken Unknown] cefdinir 300 mg PO BID #6 cap 11/09/20 [Rx Last Taken Unknown] COURSE Hospital Course Hospital course: History of present illness: Ms. Ignacio is a 85 year old F Today with cough and fever. Presents today with cough and fever. Patient states she had a cough for the past week. Today she developed a fever. In the ED was 102. She saw her primary care doctor last week and got some cough medicine. She does have a history of some esophageal issues and swallowing. She also been increasingly tired. Work-up in the ED showed a chest x-ray with bilateral infiltrates which were worse from June. Her oxygenation was 89% on room air. Lactic acid was 2.4. Denies chest pain. Does denies shortness of breath. Complains of fevers and some chills. 11/09 Shortness of breath and cough improving. Did have mild headache earlier. 11/10 Feeling little better today. Has a minimal cough. Denies shortness of breath at rest. Was febrile last night. 11/11 No overnight events or new complaints. A: *b/l PNA w/Pulm fibrosis: -covid neg *Acute hypoxic respiratory failure: *Hyponatremia: improved *A. 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 fib chronic kidney disease hypothyroidism hypertension history of stroke anxiety and GERD Time Spent with Patient Time attestation: Total time spent providing and/or coordinating discharge services: Time spent: Greater than 30 minutes EXAM Constitutional Vitals: Temp Pulse Resp BP Pulse Ox 98.3 F 69 18 126/70 95 11/09/20 11:35 11/09/20 11:35 11/09/20 11:35 11/09/20 11:35 11/09/20 11:35 Discharge Data Data Completed and Pending Labs on day of discharge: Labs from last 24 hours 11/09/20 11/09/20 11/09/20 05:34 05:34 05:34 WBC RBC Hgb Hct MCV MCH MCHC RDW Plt Count MPV Neut % (Auto) Lymph % (Auto) [place] % (Auto) Eos % (Auto) Baso % (Auto) Lymph # (Auto) [place] # (Auto) Eos # (Auto) Baso # (Auto) Absolute Neutrophils POC PT PT 28.8 H POC INR INR 2.6 H VBG Lactic Acid Sodium 137 Potassium 4.2 Chloride 103 Carbon Dioxide 26 Anion Gap 8.0 BUN 17 Creatinine 0.9 GFR Calculation 57 Glucose 109 H Uric Acid 4.8 Calcium 8.8 Phosphorus 2.7 Magnesium 1.9 Total Bilirubin 0.4 Direct Bilirubin < 0.2 GGT 44 H AST 37 H ALT 30 Alkaline Phosphatase 96 Lactate Dehydrogenase 386 H C-Reactive Protein 13.90 H NT-Pro-B Natriuret Pep Total Protein 6.6 Albumin 3.0 L Globulin 3.6 Albumin/Globulin Ratio 0.8 L Triglycerides 83 Urine Color Urine Appearance Urine pH Ur Specific [place] Urine Protein Urine Glucose (UA) Urine Ketones Urine Occult Blood Urine Nitrate Urine Bilirubin Urine Urobilinogen Ur Leukocyte Esterase Urine RBC Urine WBC Ur Squamous Epith Cells Urine Bacteria Ur Culture Indicated? Mycoplasma pneumon IgG Mycoplasma pneumon IgM Ur Strep pneumoniae Ag 11/09/20 11/09/20 11/09/20 05:34 04:30 04:30 WBC 10.2 RBC 3.84 L Hgb 11.6 L Hct 35.9 L MCV 93.5 MCH 30.2 MCHC 32.3 RDW 13.9 Plt Count 286 MPV 10.2 Neut % (Auto) 80.6 H Lymph % (Auto) 8.7 L [place] % (Auto) 6.9 Eos % (Auto) 2.8 Baso % (Auto) 1.0 Lymph # (Auto) 0.89 L [place] # (Auto) 0.71 Eos # (Auto) 0.29 Baso # (Auto) 0.10 Absolute Neutrophils 8.24 H POC PT PT POC INR INR VBG Lactic Acid Sodium Potassium Chloride Carbon Dioxide Anion Gap BUN Creatinine GFR Calculation Glucose Uric Acid Calcium Phosphorus Magnesium Total Bilirubin Direct Bilirubin GGT AST ALT Alkaline Phosphatase Lactate Dehydrogenase C-Reactive Protein NT-Pro-B Natriuret Pep Total Protein Albumin Globulin Albumin/Globulin Ratio Triglycerides Urine Color Yellow Urine Appearance Clear Urine pH 6.0 Ur Specific Edison 1.018 Urine Protein 30 A Urine Glucose (UA) Negative Urine Ketones Negative Urine Occult Blood Negative Urine Nitrate Negative Urine Bilirubin Negative Urine Urobilinogen Negative Ur Leukocyte Esterase Negative Urine RBC < 1 Urine WBC 1 Ur Squamous Epith Cells 1 Urine Bacteria 0 Ur Culture Indicated? No Mycoplasma pneumon IgG Mycoplasma pneumon IgM Ur Strep pneumoniae Ag Negative 11/08/20 11/08/20 11/08/20 19:56 12:50 09:18 WBC RBC Hgb Hct MCV MCH MCHC RDW Plt Count MPV Neut % (Auto) Lymph % (Auto) [place] % (Auto) Eos % (Auto) Baso % (Auto) Lymph # (Auto) [place] # (Auto) Eos # (Auto) Baso # (Auto) Absolute Neutrophils POC PT 36.3 H PT POC INR 3.2 H INR VBG Lactic Acid 0.9 Sodium Potassium Chloride Carbon Dioxide Anion Gap BUN Creatinine GFR Calculation Glucose Uric Acid Calcium Phosphorus Magnesium Total Bilirubin Direct Bilirubin GGT AST ALT Alkaline Phosphatase Lactate Dehydrogenase C-Reactive Protein NT-Pro-B Natriuret Pep Total Protein Albumin Globulin Albumin/Globulin Ratio Triglycerides Urine Color Urine Appearance Urine pH Ur Specific Edison Urine Protein Urine Glucose (UA) Urine Ketones Urine Occult Blood Urine Nitrate Urine Bilirubin Urine Urobilinogen Ur Leukocyte Esterase Urine RBC Urine WBC Ur Squamous Epith Cells Urine Bacteria Ur Culture Indicated? Mycoplasma pneumon IgG Mycoplasma pneumon IgM Ur Strep pneumoniae Ag TNP 11/08/20 11/08/20 09:18 09:18 WBC RBC Hgb Hct MCV MCH MCHC RDW Plt Count MPV Neut % (Auto) Lymph % (Auto) [place] % (Auto) Eos % (Auto) Baso % (Auto) Lymph # (Auto) [place] # (Auto) Eos # (Auto) Baso # (Auto) Absolute Neutrophils POC PT PT POC INR INR VBG Lactic Acid Sodium Potassium Chloride Carbon Dioxide Anion Gap BUN Creatinine GFR Calculation Glucose Uric Acid Calcium Phosphorus Magnesium Total Bilirubin Direct Bilirubin GGT AST ALT Alkaline Phosphatase Lactate Dehydrogenase C-Reactive Protein 12.10 H NT-Pro-B Natriuret Pep 1312.0 H Total Protein Albumin Globulin Albumin/Globulin Ratio Triglycerides Urine Color Urine Appearance Urine pH Ur Specific Edison Urine Protein Urine Glucose (UA) Urine Ketones Urine Occult Blood Urine Nitrate Urine Bilirubin Urine Urobilinogen Ur Leukocyte Esterase Urine RBC Urine WBC Ur Squamous Epith Cells Urine Bacteria Ur Culture Indicated? Mycoplasma pneumon IgG Pending Mycoplasma pneumon IgM Pending Ur Strep pneumoniae Ag Preliminary micro results at discharge 11/08/20 09:28 Blood Culture - Preliminary Blood 11/08/20 09:18 Blood Culture - Preliminary Blood Discharge Plan Patient/Caregiver Discharge Instructions Activity: increase activity as tolerated Diet: Dysphagia Level 6 Soft & Bite-Sized Foods Activity Restrictions/Additional Instructions: f/u with ST outpt Referral to see pulmonology in 3 to 10 days for pulmonary fibrosis. Patient will need to be discharged on home oxygen. Prescriptions: New cefdinir 300 mg capsule 300 mg PO BID Qty: 6 RF: 0 Continued warfarin 5 MG tablet 2.5 mg PO DAILY RF: 0 acetaminophen 500 MG tablet 1,000 mg PO DAILY RF: 0 benzonatate 200 mg Capsule 200 mg PO TID RF: 0 amiodarone 200 mg Tablet 200 mg PO QDAY RF: 0 hyoscyamine sulfate 0.125 mg Tablet 0.125 mg PO QID RF: 0 alprazolam 1 mg Tablet 1 mg PO QDP PRN (Reason: Anxiety) RF: 0 cyanocobalamin (vitamin B-12) 100 mcg Tablet 100 mcg PO QDAY RF: 0 folic acid 1 mg PO QAM RF: 0 latanoprost 0.005 % Drops 1 drp OPHTHALMIC (EYE) DAILY RF: 0 lisinopril 2.5 mg Tablet 2.5 mg PO QDAY RF: 0 Adults Multivitamin 1 tab PO DAILY RF: 0 potassium chloride 10 mEq Capsule, Extended Release 10 meq PO QDAY RF: 0 timolol 0.5 % Drops 1 drp OPHTHALMIC (EYE) QDAY RF: 0 omeprazole 20 mg Capsule,Delayed Release(Dr/Ec) 20 mg PO QDAY RF: 0 echinacea 400 mg PO DAILY RF: 0 cholecalciferol (vitamin D3) [Dialyvite Vitamin D] 125 mcg (5,000 unit) Capsule 5,000 unit PO DAILY RF: 0 Discontinued amoxicillin 500 mg Capsule 500 mg PO TID RF: 0 Follow Up Plan Follow up with: Rashard Abdi MD [Primary Care Provider] - Patient Disposition: Home Health Service Prognosis: Fair Overall status at discharge: patient is progressing back to baseline Discharge Orders: Discharge Order (Routine); Ordered 11/11/20 Ordered By: Josafat Martínez [facility] VTE Deep Vein Thrombosis/Pulmonary Embolism Present on Admission: No
[2020-11-09] MEDS ORDERED: WARFARIN 1 MG TABLET PO SCH (14:00)
[2020-11-10] MEDS: ACETAMINOPHEN 325 MG TABLET PO PRN (04:33)
[2020-11-10] MEDS: 0.9 % SODIUM CHLORIDE 10 ML SYRINGE IV SCH ×3 (06:24→20:27)
[2020-11-10] MEDS: PANTOPRAZOLE 40 MG TABLET PO SCH (07:13)
--- NOTE | 2020-11-10 07:13 | Internal Med Progress Note ---
SUBJECTIVE Subjective Patient information: Note initiated : 11/10/20 at 7:07 am Service Date, if different from initiated Date: [] Patient: Ameena Ignacio a 85 y/o F admitted on 11/08/20 for Cough. Chief Complaint: [] Interval history: History of present illness: Ms. Ignacio is a 85 year old F Today with cough and fever. Presents today with cough and fever. Patient states she had a cough for the past week. Today she developed a fever. In the ED was 102. She saw her primary care doctor last week and got some cough medicine. She does have a history of some esophageal issues and swallowing. She also been increasingly tired. Work-up in the ED showed a chest x-ray with bilateral infiltrates which were worse from June. Her oxygenation was 89% on room air. Lactic acid was 2.4. Denies chest pain. Does denies shortness of breath. Complains of fevers and some chills. 11/09 Shortness of breath and cough improving. Did have mild headache earlier. Imaging pointing to underlying fibrosis, patient may need home oxygen. 11/10 Feeling little better today. Has a minimal cough. Denies shortness of breath at rest. Was febrile last night. Review of Systems: denies fever/chills/nausea/vomiting/chest or abdominal pain/diarrhea. Otherwise see above. Constitutional Vitals: Vital Signs Temp Pulse Resp BP Pulse Ox 100.1 F H 90 16 154/78 92 11/10/20 06:25 11/10/20 04:25 11/10/20 04:25 11/10/20 04:25 11/10/20 04:25 Period Temp Pulse Resp BP Sys/Rogers Pulse Ox Last 24 Hr 96.9 F-102.5 F 65-90 16-18 120-154/62-78 86-99 Intake and Output 11/09/20 11/10/20 11/10/20 21:59 05:59 13:59 Intake Total 400 300 Output Total 1 Balance 400 299 Weight 64.229 kg Intake & Output: Intake & Output 11/09/20 11/10/20 11/10/20 21:59 05:59 13:59 Intake Total 400 300 Output Total 1 Balance 400 299 Weight 64.229 kg Intake: Oral 400 300 Output: # of times incontinent of urine 1 Other: Urine Appearance Clear Urine Color Bright Yellow Urine Odor Strong Stool Size Large Stool Color Brown Stool Consistency Soft Formed # Voids 1 1 Exam: General: Alert, Awake, No acute Distress Eyes/N/T: EOMI, Head/Neck: neck supple, CV: RRR, No murmurs, Pulm: mild rales L>R, no wheezing Abd: soft, nontender, +BS x4 Ext: no clubbing/cyanosis/edema Neuro: Alert, no focal deficits, moves all extremities, Skin: warm/dry OBJ DATA Labs CBC & Chem 7: 11/09/20 05:34 11/09/20 05:34 Labs: Abnormal Lab Results 11/09/20 11/09/20 11/09/20 05:34 05:34 05:34 RBC Hgb Hct Neut % (Auto) Lymph % (Auto) Lymph # (Auto) Lymphocytes % Absolute Neutrophils POC PT PT 28.8 H POC INR INR 2.6 H VBG Lactic Acid Sodium Anion Gap Creatinine Glucose 109 H GGT 44 H AST 37 H Lactate Dehydrogenase 386 H C-Reactive Protein 13.90 H NT-Pro-B Natriuret Pep Albumin 3.0 L Globulin Albumin/Globulin Ratio 0.8 L Procalcitonin Urine Protein 11/09/20 11/09/20 11/08/20 05:34 04:30 19:56 RBC 3.84 L Hgb 11.6 L Hct 35.9 L Neut % (Auto) 80.6 H Lymph % (Auto) 8.7 L Lymph # (Auto) 0.89 L Lymphocytes % Absolute Neutrophils 8.24 H POC PT 36.3 H PT POC INR 3.2 H INR VBG Lactic Acid Sodium Anion Gap Creatinine Glucose GGT AST Lactate Dehydrogenase C-Reactive Protein NT-Pro-B Natriuret Pep Albumin Globulin Albumin/Globulin Ratio Procalcitonin Urine Protein 30 A 11/08/20 11/08/20 11/08/20 09:18 09:18 09:18 RBC Hgb Hct Neut % (Auto) Lymph % (Auto) Lymph # (Auto) Lymphocytes % 7 L Absolute Neutrophils POC PT PT POC INR INR VBG Lactic Acid Sodium Anion Gap Creatinine Glucose GGT AST Lactate Dehydrogenase C-Reactive Protein 12.10 H NT-Pro-B Natriuret Pep 1312.0 H Albumin Globulin Albumin/Globulin Ratio Procalcitonin 0.14 H Urine Protein 11/08/20 11/08/20 09:18 09:18 RBC Hgb Hct Neut % (Auto) Lymph % (Auto) Lymph # (Auto) Lymphocytes % Absolute Neutrophils POC PT PT POC INR INR VBG Lactic Acid 2.4 H Sodium 132 L Anion Gap 7.0 L Creatinine 1.2 H Glucose 191 H GGT AST 44 H Lactate Dehydrogenase C-Reactive Protein NT-Pro-B Natriuret Pep Albumin 3.1 L Globulin 3.8 H Albumin/Globulin Ratio 0.8 L Procalcitonin Urine Protein Meds: Medications Acetaminophen (Acetaminophen 325 Mg Tablet) 650 mg PO Q6HP PRN PRN Reason: PAIN/FEVER > 101 Last Admin: 11/10/20 04:33 Dose: 650 mg Documented by: Albuterol/Ipratropium (Ipratropium/Albuterol 3 Ml Ampul.Neb) 3 ml NEB Q4HP PRN PRN Reason: Shortness Of Breath Last Admin: 11/08/20 19:22 Dose: 3 ml Documented by: Docusate Sodium (Docusate Sodium 100 Mg Capsule) 100 mg PO BID [facility] Last Admin: 11/09/20 21:12 Dose: 100 mg Documented by: Enalaprilat (Enalaprilat 1.25 Mg/Ml Vial) 0 mg IV Q2HP PRN PRN Reason: Hypertension Hydralazine HCl (Hydralazine 20 Mg/Ml Vial) 0 mg IV Q2HP PRN PRN Reason: Hypertension Potassium Chloride 40 meq/ (Dextrose) 520 mls @ 130 mls/hr IV UD PRN PRN Reason: Potassium < 3 Magnesium Sulfate (Magnesium Sulfate) 2 gm in 50 mls @ 50 mls/hr IV UD PRN PRN Reason: Magnesium </= 1.6 Ceftriaxone Sodium 2 gm/ (Dextrose) 50 mls @ 100 mls/hr IV Q24H [facility]; Protocol Last Infusion: 11/09/20 09:32 Dose: Infused Documented by: Azithromycin 500 mg/ Dextrose 250 mls @ 250 mls/hr IV Q24H [facility]; Protocol Stop: 11/11/20 10:59 Last Infusion: 11/09/20 12:05 Dose: Infused Documented by: Lisinopril (Lisinopril 2.5 Mg Tablet) 2.5 mg PO DAILY [facility] Last Admin: 11/09/20 09:03 Dose: 2.5 mg Documented by: Ondansetron HCl (Ondansetron 4 Mg/2 Ml Vial) 4 mg IV Q4HP PRN PRN Reason: Nausea And Vomiting Pantoprazole Sodium (Pantoprazole 40 Mg Tablet) 40 mg PO QAMAC [facility] Last Admin: 11/09/20 07:01 Dose: 40 mg Documented by: Polyethylene Glycol (Polyethylene Glycol 3350 17 Gm Packet) 17 gm PO DAILYP PRN PRN Reason: Constipation Potassium Chloride (Potassium Chloride 20 Meq Tablet) 40 meq PO UD PRN PRN Reason: Potssium is 3-3.5 Potassium Chloride (Potassium Chloride 20 Meq Tablet) 40 meq PO UD PRN PRN Reason: Potassium < 3 Senna (Sennosides 1 Tablet) 2 tab PO DAILYP PRN PRN Reason: Constipation Sodium Chloride (0.9 % Sodium Chloride 10 Ml Syringe) 10 ml IV Q8 [facility] Last Admin: 11/10/20 06:24 Dose: 10 ml Documented by: Warfarin Sodium (Warfarin Per Pharmacy) 1 order PO DAILY@1400 [facility] Last Admin: 11/09/20 15:39 Dose: Not Given Documented by: A/P Narrative A/P Narrative: A: *b/l PNA w/Pulm fibrosis: -febrile last night. strep neg -covid neg *Acute hypoxic respiratory failure: -on 0.5-2L NC *Hyponatremia: improved *A. fib: On warfarin and amiodarone *Prosthetic MV: *CKD stage II: *Hypothyroidism: *HTN: *h/o CVA: no residual *Anxiety: *GERD: *h/o esophageal issues/?dysphagia: P: -rocephin/azithro -SC -wean o2, IS/Acapella -may need home o2 given underlying pulm fibrosis -cont home warfarin/amio -hold acei, monitor BP -ST pending, dysphagia diet until seen -f/u with pulmonology -pt/ot -ppx: warfarin per pharm/home ppi full code Time Spent With Patient Time: Total time spent is greater than 50% in coordination of care (as documented) at patient's floor/unit and/or counseling patient: QUALITY Stroke Symptom Onset Unknown: No VTE Deep Vein Thrombosis/Pulmonary Embolism Present on Admission: No
[2020-11-10 07:26] LABS: INR 2.5 (0.9-1.1)
--- NOTE | 2020-11-10 07:51 | XRay Report ---
CLINICAL INFORMATION: f/u PNA, ?chronic scarring changes COMPARISON: 06/28/2020 and 11/08/2020 FINDINGS: Mild cardiomegaly with mitral valve prostheses may in stable position. Heart monitor remains in stable position. Mediastinum and pulmonary vessels are normal. Diffuse mixed interstitial/alveolar airspace disease is again noted and there has been considerable improvement in the central and basilar components compared to yesterday's exam. This likely represents diffuse infiltrate or edema superimposed upon interstitial fibrosis which is improving. No effusions. IMPRESSION: Diffuse airspace disease throughout both lungs with improvement in the central and basilar components since yesterday's exam. This would imply improvement in edema or infiltrate superimposed upon fibrosis Interpreted and Authenticated by: Addy Dobbins 11/10/20
[2020-11-10] MEDS: DOCUSATE SODIUM 100 MG CAPSULE PO SCH ×2 (08:11→20:27)
[2020-11-10] MEDS: LISINOPRIL 2.5 MG TABLET PO SCH (08:11)
[2020-11-10] MEDS: cefTRIAXone 2 GM in DEXTROSE 5% IN WATER 50 ML IV SCH (09:52)
[2020-11-10] MEDS: AZITHROMYCIN 500 MG in DEXTROSE 5% IN WATER 250 ML IV SCH (11:16)
[2020-11-10] MEDS ORDERED: WARFARIN 2 MG TABLET PO ONE (14:00)
[2020-11-11] MEDS: 0.9 % SODIUM CHLORIDE 10 ML SYRINGE IV SCH (06:01)
[2020-11-11] MEDS: PANTOPRAZOLE 40 MG TABLET PO SCH (07:02)
[2020-11-11 08:04] LABS: INR 2.3 (0.9-1.1); Prothrombin Time 26.4 sec (11.9-14.5)
[2020-11-11] MEDS: LISINOPRIL 2.5 MG TABLET PO SCH (09:43)
[2020-11-11] MEDS: cefTRIAXone 2 GM in DEXTROSE 5% IN WATER 50 ML IV SCH (09:43)
[2020-11-11] MEDS: DOCUSATE SODIUM 100 MG CAPSULE PO SCH (09:43)
[2020-11-11] MEDS: AZITHROMYCIN 500 MG in DEXTROSE 5% IN WATER 250 ML IV SCH (10:35)
[2020-11-14 15:27] LABS: M. Pneumoniae IGG 0.98
== END 2020-11-11 14:11 | disposition home health service (06) | DRG 193 ==
LOC: ED 08:52 → MEDSUR 14:00
PROVIDERS: ADMIT Internal Medicine; ATTEND Internal Medicine